=== PATIENT | female | born 1950 | race Two or more races ===

== ENCOUNTER 2025-02-25 12:43 | Inpatient (IN) | payer MEDICARE, MEDICAID, SELFPAY ==
[2025-02-25] VITALS (10 sets, daily range): BP systolic 140–157; BP diastolic 76–95; PULSE 55–97; RESP 16–100; TEMP 36.4–36.7; O2SAT 92–98; BMI 30.9; BMI 31.4
--- NOTE | 2025-02-25 | XR_ITS ---
Examinations: MRI Brain without intravenous contrast. MRA brain without intravenous contrast. MRA carotids without intravenous contrast 3-D vascular reconstructions Date and time of exam: February 27, 2025 1848 hours Comparison September 07, 2024 INDICATIONS: Stroke alert today, onset focal neurologic deficit left-sided body weakness altered mental status Technique: Multiple axial and sagittal images of the brain have been obtained MRA brain carotid images without contrast obtained, including 3-D postprocessing, vascular maximum intensity projection images Findings: [place] is not enlarged. The optic chiasm and infundibular stalk are not remarkable. Prepontine and interpeduncular cisterns are not enlarged. No localized enlargement of the medulla or girma. Fourth ventricle and cerebellar tonsils normal in position. Subacute hemorrhage is not seen. Fourth ventricle is midline. Mass in the cerebellopontine angle region is not evident. 7th and 8th nerve complexes exhibits symmetry. Globes are symmetrical with no retro-orbital mass. Increased white matter signal prominent Significant cerebral atrophy Diffusion-weighted images demonstrate no focus of restricted diffusion Mass-effect upon the ventricular system is not identified. MRA carotid images no significant carotid stenoses. MRA brain images no large vessel cerebral occlusions Impression: Negative for acute hemorrhage, mass effect or midline shift No acute infarct Very prominent chronic microvascular white matter change, chronic multi-infarct dementia pattern with significant cerebral atrophy No significant carotid stenoses No no large vessel cerebral arterial occlusions
--- NOTE | 2025-02-25 12:54 | XR_ITS ---
Examination: CTA carotids with intravenous contrast CTA brain, head with intravenous contrast. 2-D sagittal, coronal reconstructions. 3-D reconstructions. Exam date and time: February 25, 2025 at 1259 hours INDICATIONS: Stroke alert today onset focal neurologic deficit 40 minutes ago CTDI: vol (mGy) 23.01 DLP: (mGycm) 431 Technique: Multiple CTA axial brain, head carotid images post intravenous contrast injection 75 cc, Isovue-370. 2-D sagittal, coronal reconstructions. 3-D reconstructions, 3-D post processing including vascular maximum intensity projection images. Low dose protocols were performed. One or more of the following dose reduction techniques were used; automated exposure control, adjustment of the mA and/or KV according to patient size, use of iterative reconstruction technique. Findings: No significant common carotid carotid bifurcation or internal carotid artery stenoses Mildly dominant right vertebral artery in the neck with no mucosal stenoses No cerebral large vessel arterial occlusions or thrombus IMPRESSION: No significant neck arterial stenoses No cerebral large vessel arterial occlusions or thrombus
--- NOTE | 2025-02-25 12:54 | EKG_ITS ---
[facility] Test Date: 2025-02-25 Pat Name: JOY IBRAHIM Department: Room: - Gender: Female [employer]: : 1950 Requested By: Glenn Rowe Order Number: [id number] Reading MD: Glenn Rowe Measurements Intervals [place] Rate: 62 P: 68 [place]: 184 QRS: 9 QRSD: 97 T: 66 QT: 422 QTc: 430 Interpretive Statements SINUS RHYTHM WITH SINUS ARRHYTHMIA WARNING: DATA QUALITY MAY AFFECT INTERPRETATION Compared to ECG 09/06/2024 11:36:59 No significant changes /store/S0/[id number]/[id number].pdf
--- NOTE | 2025-02-25 12:54 | XR_ITS ---
Examination: CT brain head without contrast. 2-D sagittal coronal reconstructions Date and time of exam:February 25, 2025 1252 hours Comparison September 06, 2024 INDICATIONS: Stroke alert, onset altered mental status left-sided body weakness focal neurologic deficit today CTDI: vol (mGy):46.0 DLP: (mGycm):875 Technique: Multiple CT axial sections of the brain have been obtained, 5 mm slice thickness. Contrast has not been administered. 2-D sagittal, coronal reconstructions have been obtained Low dose protocols were performed. One or more of the following dose reduction techniques were used; automated exposure control, adjustment of the mA and/or KV according to patient size, use of iterative reconstruction technique. Findings: No significant ventricular enlargement. Intra-axial or extra-axial hemorrhage density is not seen. No mass effect or midline shift Basal cisterns are not remarkable. Fourth ventricle is midline. Cranial vault intact. Impression: Negative for acute hemorrhage, mass effect or midline shift
[2025-02-25 13:21] LABS: Basophils % (Auto) 1 % (0-2.5); Eosinophils # (Auto) 0.1 Thou/mm3 (0.0-0.5); Eosinophils % (Auto) 2 % (0-10); Hematocrit 34.7 % (36.0-46.0); Hemoglobin 11.3 g/dL (12.0-16.0); Immature Granulocytes % (Auto) 0 % (0-0); Immature Granulocytes Auto 0.03 Thou/mm3 (0.00-0.00); Lymphocytes # (Auto) 1.7 Thou/mm3 (1.0-4.8); Lymphocytes % (Auto) 21 % (10-50); Mean Corpuscular HGB Conc 32.6 g/dl (31.0-37.0); Mean Corpuscular Hemoglobin 26.7 pg (25.0-35.0); Mean Corpuscular Volume 82 fL (80-100); Monocytes # (Auto) 0.6 Thou/mm3 (0.0-0.8); Monocytes % (Auto) 7 % (0-12); Neutrophils # (Auto) 5.5 Thou/mm3 (1.8-7.7); Neutrophils % (Auto) 69 % (37-80); Nucleated Red Blood Cell % 0 /100 WBC (0); Platelet Count 332 Thou/mm3 (140-440); RDW Standard Deviation 48.4 fL (36.4-46.3); Red Blood Count 4.23 Miln/mm3 (4.00-5.20); White Blood Count 7.9 Thou/mm3 (3.6-11.0)
[2025-02-25 13:37] LABS: INR 1.1 (0.9-1.3); Partial Thromboplastin Time 27.6 Seconds (22.0-36.0); Prothrombin Time 11.9 Seconds (9.0-12.2)
--- NOTE | 2025-02-25 13:37 | PD.EDNEURO ---
Neuro Symptoms Deficit-RME/HPI General Chief Complaint: Neuro Symptoms/Deficit Stated Complaint: STROKE LIKE SYMPTOMS Time Seen by Provider: 02/25/25 12:54 Arrival date/time: 02/25/25 12:43 Limitations: no limitations RME / HPI RME / HPI Narrative: 74 year old female with history of CVA, TIA, hypertension, diabetes, h/o DVT, hyperlipidemia presents to the ED BIBA from home for evaluation of stroke like symptoms today. Per medics, family on scene reported patient appeared to have left sided weakness and slurred speech. Last known well at 12:20 hours today. Per medics, on scene the patient was a GCS of 13 and had a G-FAST of 2 with left sided weakness. However, reports since arriving to the ED her symptoms have resolved and activities volunteer strength is equal bilaterally. No other complaints reported. Prehospital BS 138. Prehospital vital signs: b/p 196/106, spo2 92% on RA and 98% on 4L, RR 16. Related Data Home Medications ?Medication ?Instructions ?Recorded ?Confirmed montelukast 10 mg tablet 10 mg PO QPM 02/20/18 02/27/25 (Singulair) Held on 02/27/25. Instructions: Doctor's Order diphenoxylate-atropine 2.5 1 tab PO QID PRN Diarrhea 08/27/23 02/26/25 mg-0.025 mg tablet famotidine 20 mg tablet 20 mg PO QDAY 08/27/23 02/26/25 folic acid 1 mg tablet 1 mg PO QDAY 08/27/23 02/26/25 hydroxyzine HCl 25 mg tablet 25 mg PO HS 08/27/23 02/26/25 memantine 5 mg tablet 5 mg PO BID 08/27/23 02/26/25 vibegron 75 mg tablet (Gemtesa) 75 mg PO QDAY 08/27/23 02/26/25 albuterol sulfate 90 mcg/actuation 2 inh inhalation Q4HR PRN sob 09/06/24 02/27/25 aerosol inhaler Held on 02/27/25. Instructions: Doctor's Order apixaban 5 mg tablet (Eliquis) 5 mg PO BID 09/06/24 02/26/25 finerenone 10 mg tablet (Kerendia) 10 mg PO QDAY 09/06/24 02/26/25 celecoxib 200 mg capsule (Celebrex) 200 mg PO BID 02/26/25 02/26/25 cholecalciferol (vitamin D3) 50 50 mcg PO QDAY 02/26/25 02/26/25 mcg (2,000 unit) tablet (D3 DOTS) patiromer calcium sorbitex 25.2 25.2 g PO BID 02/26/25 02/26/25 gram oral powder packet (Veltassa) Previous Rx's ?Medication ?Instructions ?Recorded aspirin 81 mg tablet,delayed 81 mg PO QDAY #30 tabs 09/08/24 release Held on 02/27/25. Instructions: Doctor's Order atorvastatin 20 mg tablet 20 mg PO QDAY 30 days #0 tabs 09/08/24 Allergies Allergy/AdvReac Type Severity Reaction Status Date / Time No Known Allergies Allergy Verified 05/24/23 14:01 Review of Systems Review of Systems Narrative Review of Systems: GEN: No fever, no chills, no weight loss EYES: No discharge, no visual changes, no pain HEENT: No ear pain, no congestion, no sore throat PULM: No shortness of breath, no cough, no congestion CV: No chest pain, no palpitations GI: No nausea, no vomiting, no diarrhea, no pain, no constipation : No frequency, no urgency, no dysuria MUSC/SKEL: No joint pain, no back pain SKIN: No rash NEURO: +left sided weakness and slurred speech per medics and family, no headache Past Medical History Past Medical History NEUROLOGIC: Positive Neurological Disorders and Cerebrovascular Accident CARDIAC: Positive Cardiac Disorders, Hypercholesterolemia, Deep Vein Thrombosis and Hypertension RESPIRATORY: Positive Chronic Obstructive Pulmonary Disease (COPD) and Bronchitis GASTROINTESTINAL: Positive Gastrointestinal Disorders and Gastroesophageal Reflux Disease MUSCULOSKELETAL: Positive Musculoskeletal Disorders and Arthritis ENDOCRINE: Positive Endocrine Disorders and Diabetes Mellitus Type 2 OTHER HISTORY: Positive Hospitalization, Falls and Blood Transfusions Social History SMOKING STATUS: Never smoker ED Exam General Limitations: Present no limitations General appearance: Present alert and in no apparent distress Head Head exam: Present atraumatic, normocephalic and normal inspection Eye Eye exam: Present normal appearance, PERRL and EOMI ENT ENT exam: Present normal exam, normal oropharynx and mucous membranes moist Neck Neck exam: Present normal inspection, full ROM and trachea midline Chest Chest inspection: Present normal inspection and symmetric chest wall rise Respiratory Respiratory exam: Present normal lung sounds bilaterally Cardiovascular Cardiovascular exam: Present regular rate, normal rhythm and normal heart sounds Abdominal Exam Abdominal exam: Present soft and normal bowel sounds Extremities Exam Extremities exam: Present normal inspection and full ROM Back Exam Back exam: Present normal inspection and full ROM Neurological Exam Neurological exam: Present alert, oriented X3 and CN II-XII intact Psychiatric Psychiatric exam: Present normal affect and normal mood Skin Skin exam: Present warm, dry, intact and normal color Course Course Course Narrative: 1244: Patient evaluated in ED ambulance bay Quality Measures Suspected type of Stroke: Acute Ischemic Tenecteplase given: Reason(s) TPA not given: Stroke severity too mild (non-disabling) not given stroke Orders Category Date Time Status Bedside Blood Glucose NOW Care 02/25/25 12:54 Completed COVID-19 Screening Questionnaire NOW Care 02/25/25 14:27 Completed Astrobiologist NOW Care 02/25/25 12:54 Completed Continuous Pulse Oximetry NOW Care 02/25/25 12:54 Completed Decision to Admit X1 Care 02/25/25 14:27 Completed EKG (ED ONLY) *Do not use* NOW Care 02/25/25 12:54 Completed In and Out Catheter NEEDED Care 02/25/25 12:54 Completed Insert IV NOW Care 02/25/25 12:54 Completed NIH Stroke Scale now Care 02/25/25 12:54 Completed NPO NOW Care 02/25/25 12:54 Completed Neuro Check Q15MIN Care 02/25/25 12:55 Completed Nurse Swallow Screen x1 Care 02/25/25 12:54 Completed Consult to Neurology / Tele-Neurology Routine Cons 02/25/25 12:[address] angio stroke protocol Stat Exams 02/25/25 12:[address] stroke protocol Stat Exams 02/25/25 12:54 Completed EKG (ED Only) Stat Exams 02/25/25 12:54 Draft Arterial Blood Gas Stat Lab 02/25/25 13:37 Completed CBC Stat Lab 02/25/25 13:10 Completed Comprehensive Metabolic Panel Stat Lab 02/25/25 13:10 Completed Magnesium Stat Lab 02/25/25 13:10 Completed Partial Thromboplastin Time Stat Lab 02/25/25 13:10 Completed Prothrombin Time with INR Stat Lab 02/25/25 13:10 Completed Troponin I Stat Lab 02/25/25 13:10 Completed Urinalysis Stat Lab 02/25/25 14:48 Completed Ondansetron Inj [Zofran Inj] Med 02/25/25 12:54 Discontinued 4 mg IV Q4HR PRN Sodium Chloride 0.9% 1000 ml [Ns] 1,000 ml Med 02/25/25 13:00 Discontinued IV 100 mls/hr Oxygen Delivery NOW RT 02/25/25 12:54 Completed Reevaluation(s) Reevaluation #1: I spoke with teleneurologist Dr. Castro and states patient is not a tpa candidate. Time: 13:54 Vital Signs Vital signs: Vital Signs Pulse Rate 62 02/25/25 13:00 Respiratory Rate 18 02/25/25 13:00 Neuro Symptoms / Deficit MDM Narrative MDM Narrative:: IKelsi, raul scribing for and in the presence of Dr. Wilkinson. Patient data External records reviewed:: [facility] previous records (I reviewed admission from 09/06/2024 through 09/09/2024 for hypomagnesemia ) and EMS form Clinical information provided by:: patient and EMS Social determinants that could affect healthcare access:: none Patient has the following chronic illnesses:: CVA, TIA, hypertension, diabetes, h/o DVT, hyperlipidemia How is presenting disease/condition affected by chronic disease/condition?: exacerbated by Evaluation data The following diagnostics were reviewed and interpreted by me:: lab results, radiology exam(s) and EKG tracing(s) (Sinus rhythm,r ate 62, QT/QTC 422ms/427ms, no STEMI ) Lab and/or radiology exams considered but not ordered:: None Interpretation Summary: Ordering Physician: Glenn Wilkinson MD Date of Service: 02/25/25 Procedure(s): CT stroke protocol Accession Number(s): [id number] cc: Glenn Wilkinson MD; Esequiel Barros MD~ Examination: CT brain head without contrast. 2-D sagittal coronal reconstructions Date and time of exam:February 25, 2025 1252 hours Comparison September 06, 2024 INDICATIONS: Stroke alert, onset altered mental status left-sided body weakness focal neurologic deficit today CTDI: vol (mGy):46.0 DLP: (mGycm):875 Technique: Multiple CT axial sections of the brain have been obtained, 5 mm slice thickness. Contrast has not been administered. 2-D sagittal, coronal reconstructions have been obtained Low dose protocols were performed. One or more of the following dose reduction techniques were used; automated exposure control, adjustment of the mA and/or KV according to patient size, use of iterative reconstruction technique. Findings: No significant ventricular enlargement. Intra-axial or extra-axial hemorrhage density is not seen. No mass effect or midline shift Basal cisterns are not remarkable. Fourth ventricle is midline. Cranial vault intact. Impression: Negative for acute hemorrhage, mass effect or midline shift Dictated By: Esequiel Barros MD Signed By: <Electronically signed by Esequiel Barros MD in OV> 02/25/25 1302 Ordering Physician: Glenn Wilkinson MD Date of Service: 02/25/25 Procedure(s): CT angio stroke protocol Accession Number(s): [id number] cc: Glenn Wilkinson MD; Esequiel Barros MD~ Examination: CTA carotids with intravenous contrast CTA brain, head with intravenous contrast. 2-D sagittal, coronal reconstructions. 3-D reconstructions. Exam date and time: February 25, 2025 at 1259 hours INDICATIONS: Stroke alert today onset focal neurologic deficit 40 minutes ago CTDI: vol (mGy) 23.01 DLP: (mGycm) 431 Technique: Multiple CTA axial brain, head carotid images post intravenous contrast injection 75 cc, Isovue-370. 2-D sagittal, coronal reconstructions. 3-D reconstructions, 3-D post processing including vascular maximum intensity projection images. Low dose protocols were performed. One or more of the following dose reduction techniques were used; automated exposure control, adjustment of the mA and/or KV according to patient size, use of iterative reconstruction technique. Findings: No significant common carotid carotid bifurcation or internal carotid artery stenoses Mildly dominant right vertebral artery in the neck with no mucosal stenoses No cerebral large vessel arterial occlusions or thrombus IMPRESSION: No significant neck arterial stenoses No cerebral large vessel arterial occlusions or thrombus Dictated By: Esequiel Barros MD Signed By: <Electronically signed by Esequiel Barros MD in OV> 02/25/25 7367 Medications / Prescriptions Medications or Prescriptions considered but not ordered:: None Medication administrations:: Medication Administration History Discontinued Medications Acetaminophen (Acetaminophen 325 Mg Tablet) 650 mg PO Q6H PRN PRN Reason: Pain 1-3 or Fever >100.3 Stop: 03/27/25 15:09 Hydrocodone Bitart/Acetaminophen (Hydrocodone/Apap 5/325 Tablet) 1 tab PO Q4HR PRN PRN Reason: PAIN SCALE 4-6 (Moderate Stop: 03/02/25 15:09 Albuterol (Albuterol Rt 2.5 Mg/0.5 Ml Nebu) 2.5 mg INH Q4HRRT PRN PRN Reason: shortness of breath Stop: 03/27/25 18:59 Apixaban (Apixaban 2.5 Mg Tablet) 5 mg PO BID MATT Stop: 03/18/25 20:59 Last Admin: 02/27/25 08:25 Dose: 5 mg Documented By: Admin: 02/26/25 20:09 Dose: 5 mg Documented By: Admin: 02/26/25 08:07 Dose: 5 mg Documented By: Admin: 02/25/25 20:46 Dose: 5 mg Documented By: EAMON Aspirin (Aspirin Ec 81 Mg Tabec) 81 mg PO X1 ONE Stop: 02/25/25 15:23 Last Admin: 02/25/25 16:58 Dose: 81 mg Documented By: ARSENIO Aspirin (Aspirin Ec 81 Mg Tabec) 81 mg PO QDAY MATT Stop: 03/28/25 08:59 Last Admin: 02/27/25 08:25 Dose: 81 mg Documented By: Admin: 02/26/25 08:07 Dose: 81 mg Documented By: JACQUE Atorvastatin Calcium (Atorvastatin Calcium 20 Mg Tablet) 20 mg PO HS MATT Stop: 03/27/25 20:59 Last Admin: 02/26/25 20:09 Dose: 20 mg Documented By: Admin: 02/25/25 20:44 Dose: 20 mg Documented By: EAMON Benzonatate (Benzonatate 100 Mg Capsule) 100 mg PO Q8HR PRN; Protocol PRN Reason: COUGH Stop: 03/28/25 08:55 Clopidogrel Bisulfate (Clopidogrel Bisulfate 75 Mg Tablet) 300 mg PO X1 ONE Stop: 02/25/25 15:23 Last Admin: 02/25/25 17:00 Dose: Not Given Documented By: VG Non-Admin Reason: Discontinued Dextrose (Dextrose 50%-Water Inj 50 Ml Syringe) 25 ml IV Q15MIN PRN PRN Reason: BG 50-70 responsive npo pt Stop: 03/27/25 15:25 Dextrose (Dextrose 50%-Water Inj 50 Ml Syringe) 50 ml IV Q15MIN PRN PRN Reason: BG <50 OR BG <70 & pt unresponsive Stop: 03/27/25 15:25 Docusate Sodium (Docusate Sod 100 Mg Capsule) 100 mg PO QDAY PRN; Protocol PRN Reason: CONSTIPATION Stop: 03/27/25 15:09 Glucagon (Glucagon Inj 1 Mg Vial) 1 mg IM Q15MIN PRN PRN Reason: BG <70, and no IV access Sodium Chloride (Ns) 1,000 mls @ 100 mls/hr IV .Q10H MATT Stop: 03/27/25 12:59 Last Admin: 02/27/25 06:23 Dose: 100 mls/hr Documented By: Infusion: 02/27/25 06:10 Dose: Infused Documented By: Admin: 02/26/25 20:10 Dose: 100 mls/hr Documented By: Infusion: 02/26/25 15:24 Dose: Infused Documented By: Admin: 02/26/25 09:17 Dose: Not Given Documented By: JACQUE Non-Admin Reason: new bag running already Admin: 02/26/25 05:24 Dose: 100 mls/hr Documented By: Infusion: 02/26/25 00:19 Dose: Infused Documented By: Admin: 02/25/25 14:19 Dose: 100 mls/hr Documented By: ARSENIO Magnesium Sulfate (Magnesium Sulfate Ivpb) 2 gm in 50 mls @ 25 mls/hr IV X1 ONE Stop: 02/27/25 10:15 Last Admin: 02/27/25 08:25 Dose: 25 mls/hr Documented By: TYSON Insulin Human Lispro (Insulin Lispro (Admelog) 1 Unit/0.01 Ml Unit) 0 unit SC AC MATT; Protocol Stop: 03/27/25 16:59 Last Admin: 02/26/25 07:06 Dose: Not Given Documented By: JACQUE Non-Admin Reason: NPO Admin: 02/25/25 18:00 Dose: Not Given Documented By: ARSENIO Non-Admin Reason: Per Protocol Insulin Human Lispro (Insulin Lispro (Admelog) 1 Unit/0.01 Ml Unit) 0 unit SC Q6HR MATT; Protocol Stop: 03/28/25 11:59 Insulin Human Lispro (Insulin Lispro (Admelog) 1 Unit/0.01 Ml Unit) 0 unit SC AC MATT; Protocol Stop: 03/28/25 11:29 Last Admin: 02/27/25 12:02 Dose: Not Given Documented By: TYSON Non-Admin Reason: Per Protocol Admin: 02/27/25 08:24 Dose: Not Given Documented By: TYSON Non-Admin Reason: Per Protocol Admin: 02/26/25 18:17 Dose: Not Given Documented By: JACQUE Non-Admin Reason: Per Protocol Admin: 02/26/25 11:33 Dose: Not Given Documented By: JACQUE Non-Admin Reason: Per Protocol Losartan Potassium (Losartan Potassium 25 Mg Tablet) 25 mg PO QDAY [facility] Stop: 03/28/25 08:59 Last Admin: 02/27/25 08:24 Dose: 25 mg Documented By: Admin: 02/26/25 09:16 Dose: 25 mg Documented By: JACQUE Memantine (Memantine Hcl 5 Mg Tablet) 5 mg PO BID [facility] Stop: 03/27/25 20:59 Last Admin: 02/27/25 08:25 Dose: 5 mg Documented By: Admin: 02/26/25 20:09 Dose: 5 mg Documented By: Admin: 02/26/25 08:07 Dose: 5 mg Documented By: Admin: 02/25/25 20:44 Dose: 5 mg Documented By: EAMON Morphine Sulfate (Morphine Sulf Inj 10 Mg/Ml Vial) 2 mg IVP Q4HR PRN PRN Reason: PAIN SCALE 7-10 (Severe Stop: 03/02/25 15:09 Ondansetron HCl (Ondansetron Inj 2 Mg/Ml Inj 2 Ml) 4 mg IV Q4HR PRN PRN Reason: NAUSEA OR VOMITING Stop: 03/27/25 12:53 Pantoprazole Sodium (Pantoprazole 40 Mg Tablet) 40 mg PO QDAY [facility] Stop: 03/27/25 15:14 Last Admin: 02/27/25 08:25 Dose: 40 mg Documented By: Admin: 02/26/25 08:07 Dose: 40 mg Documented By: Admin: 02/25/25 16:58 Dose: 40 mg Documented By: VG Sodium Chloride (Sodium Chloride Rt Idalmis 0.9% 3 Ml Nebu) 3 ml INH PRN PRN PRN Reason: SOLN Stop: 03/27/25 15:28 See above Consultations Consultation(s) initiated? (list below): Yes Consultation #1 (Physician, Specialty, Details): I spoke with hospitalist Dr. Marte. Discussed patients PMHx, HPI, ED course, exam findings, labs, and radiology results. The hospitalist agree to accept the patient for admission. Time: 14:35 Diagnosis Neuro Differential Diagnosis: subarachnoid hemorrhage, cerebrovascular accident and transient cerebral ischemia Most likely diagnosis given after review of the tests above:: TIA H/O CVA Admission Indicated Admission indicated?: indicated Admission Request Was there a request for admission?: Yes Admission Attestation Admission request attestation: Discussed case with [] from Hospitalist service regarding admission. Discussed patients ED course, exam findings, labs, and radiology results. The Hospitalist [agrees,declines] to accept the patient for admission. Disposition Plan Disposition Plan: Admit Critical Care Time Critical Care Time Critical Care Time: Yes Total Critical Care Time (min.): 30 Attestation: The high probability of sudden, clinically significant deterioration in the patient's condition required the highest level of my preparedness to intervene urgently. The services I provided to this patient were to treat and/or prevent clinically significant deterioration. Services included the following: chart data review, reviewing nursing notes and/or old charts, documentation time, pension consultant collaboration regarding findings and treatment options, medication orders and management, direct patient care, vital sign assessments and ordering, interpreting and reviewing diagnostic studies and lab tests. Aggregate critical care time includes only time during which I was engaged in work directly related to the patient's care, as described above, whether at bedside or elsewhere in the Emergency Department. It did not include time spent performing other reported procedures or the services of residents, students, nurses or physician assistants. Discharge Plan Plan Patient Disposition: Admit Acute Care w/in Hospital Problem List Clinical Impression: TIA (transient ischemic attack), H/O: CVA (cerebrovascular accident)
[2025-02-25 13:40] LABS: Base Excess 2 (-3-3); HCO3 27 mEq/L (20-26); Inspired Oxygen, FIO2 21 %; O2 Saturation 96 % (91-98); PCO2 45 mmHg (32.0-48.0); PO2 79 mmHg (83-108); pH, Arterial 7.39 (7.35-7.45)
[2025-02-25 13:41] LABS: Allen Test Not Performed; Puncture Site Site Not Noted
[2025-02-25 13:54] LABS: Alanine Aminotransferase 9 U/L (10-49); Albumin/Globulin Ratio 1.3 (1.2-2.2); Alkaline Phosphatase 95 U/L (46-116); Anion Gap 9 (7-16); Aspartate Amino Transferase 18 U/L (0-34); BUN/Creatinine Ratio 9 Ratio (12-20); Bilirubin,Total 0.6 mg/dL (0.3-1.2); Blood Urea Nitrogen 11 mg/dL (9-23); Calcium 9.3 mg/dL (8.3-10.6); Calcium (Corrected) 9.3 mg/dL (8.5-10.1); Carbon Dioxide 26.4 mMol/L (20.0-31.0); Chloride 104 mMol/L (98-107); Creatinine (Component) 1.2 mg/dL (0.6-1.3); Estimated Creatinine Clearance 36.4 mL/min (>60); Glucose 124 mg/dL (74-106); Magnesium 1.7 mg/dL (1.6-2.6); Osmolality,Calculated 277 (275-295); Sodium 139 mMol/L (136-145); Troponin I < 0.002 ng/mL (0.0-0.045); eGFR 48 See Note
--- NOTE | 2025-02-25 13:55 | PD.TNEURO ---
Tele Neuro Consultation Consultation Date 02/25/25 Most Recent Vital Signs Last Vital Signs Pulse 97 02/25/25 13:37 Resp 18 02/25/25 13:37 Laboratory-Coagulation Panel PT 11.9 Seconds (9.0-12.2) 02/25/25 13:10 INR 1.1 (0.9-1.3) 02/25/25 13:10 APTT 27.6 Seconds (22.0-36.0) 02/25/25 13:10 Consultation Narrative [facility] Tele[facility]urology Consult Services Patient Name:???Valeria Haley Date of :???1950 Identification Number:??? Date of Service:???02/25/2025 12:42:16 Diagnosis:?G45.9 - Transient cerebral ischemic attack, unspecified Impression: ?74yo woman w/PMH of vascular dementia, pneumonia p/w left sided weakness, slurred speech on 02/25/25. EMS reports they were called from clinic when she developed left sided weakness and slurred speech at 12:20. Her symptoms improved in the ED. NIHSS [address] Head has no acute findings per radiology. Pt is not a candidate for thrombolytics due to lack of disabling deficits at this time. CTA Head/Neck shows no large vessel occlusion. Presentation is concerning for TIA or acute small vessel ischemic stroke based on history and exam, MRI Brain advised. Plan listed below was recommended to the ED physician by phone. Our recommendations are outlined below. Recommendations: ? Stroke/Telemetry Floor ? Neuro Checks ? Bedside Swallow Eval ? DVT Prophylaxis ? IV Fluids, Normal Saline ? Head of Bed 30 Degrees ? Euglycemia and Avoid Hyperthermia (PRN Acetaminophen) ? Bolus with Clopidogrel 300 mg bolus x1 and initiate dual antiplatelet therapy with Aspirin 81 mg daily and Clopidogrel 75 mg daily ? Antihypertensives PRN if Blood pressure is greater than 220/120 or there is a concern for End organ damage/contraindications for permissive HTN. If blood pressure is greater than 220/120 give labetalol PO or IV or Vasotec IV with a goal of 15% reduction in BP during the first 24 hours. ?Routine MRI Brain without contrast to assess for stroke ?TTE (if not recently done) ?Lipid Profile, A1C ?PT/OT, Speech/Swallow evaluation Sign Out: ? Discussed with Emergency Department Provider Advanced Imaging: CTA Head and Neck Completed. LVO:No Patient in not a candidate for SHREYAS Metrics: Last Known Well: 02/25/2025 12:20:00 Dispatch Time: 02/25/2025 12:42:16 Arrival Time: 02/25/2025 12:43:00 Initial Response Time: 02/25/2025 12:51:26Symptoms: left sided weakness, slurred speech. Initial patient interaction: 02/25/2025 13:40:38 NIHSS Assessment Completed: 02/25/2025 13:45:28Patient is not a candidate for Thrombolytic. Thrombolytic Medical Decision: 02/25/2025 13:45:29Patient was not deemed candidate for Thrombolytic because of following reasons: Resolved symptoms . Stroke severity too mild (non-disabling) . CT head showed no acute hemorrhage or acute core infarct. Primary Provider Notified of Diagnostic Impression and Management Plan on: 02/25/2025 13:54:59 History of Present Illness:Patient is a 74 year old Female. Patient was brought by EMS for symptoms of left sided weakness, slurred speech. 74yo woman w/PMH of vascular dementia, pneumonia p/w left sided weakness, slurred speech on 02/25/25. EMS reports they were called from clinic when she developed left sided weakness and slurred speech at 12:20. Her symptoms improved in the ED. Past Medical History: Other PMH:? see hpi Medications: No Anticoagulant use? No Antiplatelet use Reviewed EMR for current medications Allergies:? Reviewed Social History: Drug Use: No Family History: There is no family history of premature cerebrovascular disease pertinent to this consultation ROS : 14 Points Review of Systems was performed and was negative except mentioned in HPI. Past Surgical History: There Is No Surgical History Contributory To Today?s Visit Examination: BP(/),?Pulse(80), 1A: Level of Consciousness - Alert; keenly responsive?+ 0 1B: Ask Month and Age - 1 Question Right?+ 1 1C: Blink Eyes & Squeeze Hands - Performs Both Tasks?+ 0 2: Test Horizontal Extraocular Movements - Normal?+ 0 3: Test Visual Rene - No Visual Loss?+ 0 4: Test Facial Palsy (Use Grimace if Obtunded) - Normal symmetry?+ 0 5A: Test Left Arm Motor Drift - No Drift for 10 Seconds?+ 0 5B: Test Right Arm Motor Drift - No Drift for 10 Seconds?+ 0 6A: Test Left Leg Motor Drift - No Drift for 5 Seconds?+ 0 6B: Test Right Leg Motor Drift - No Drift for 5 Seconds?+ 0 7: Test Limb Ataxia (FNF/Heel-Waters) - No Ataxia?+ 0 8: Test Sensation - Normal; No sensory loss?+ 0 9: Test Language/Aphasia - Normal; No aphasia?+ 0 10: Test Dysarthria - Normal?+ 0 11: Test Extinction/Inattention - No abnormality?+ 0 NIHSS Score:?1 Pre-Morbid Modified William Scale:0 Points = No symptoms at all Spoke with :?ED MD This consult was conducted in real time using interactive audio and video technology. Patient was informed of the technology being used for this visit and agreed to proceed. Patient located in hospital and provider located at home/office setting. Patient is being evaluated for possible acute neurologic impairment and high probability of imminent or life-threatening deterioration. I spent total of 35 minutes providing care to this patient, including time for face to face visit via telemedicine, review of medical records, imaging studies and discussion of findings with providers, the patient and/or family. Dr Mejia Castro [facility] For Inpatient follow-up with [facility] physician please call [facility] at . As we are not an outpatient service for any post hospital discharge needs please contact the hospital for assistance. If you have any questions for the [facility] physicians or need to reconsult for clinical or diagnostic changes please contact us via [facility] at .
[2025-02-25] MEDS: SODIUM CHLORIDE 0.9% 1000 ML 1,000 ML 100 ML IV (14:19)
[2025-02-25 15:09] LABS: Collection Type, Urine Clean Catch; Squamous Epithelial Cell,Urine 0 /hpf (0-5)
--- NOTE | 2025-02-25 15:10 | ECHO_ITS ---
Transthoracic Echo Report Ht (in): 60 Wt (lb): 160 Exam Location: Portable Status: Emergency Lead Generation Representative: GOPAL Mcbride^^^^ Indications: Procedure Performed: BP: 160 / 100 HR: 90 Technical Quality: Fair MEASUREMENTS (Male / Female) Normal Values 2D ECHO LV Diastolic Diameter PLAX 3.3 cm 4.2 - 5.9 / 3.9 - 5.3 cm LV Systolic Diameter PLAX 2.3 cm IVS Diastolic Thickness 0.8 cm 0.6 - 1.0 / 0.6 - 0.9 cm LVPW Diastolic Thickness 1.0 cm 0.6 - 1.0 / 0.6 - 0.9 cm LV Relative Wall Thickness 0.5 LVOT Diameter 1.7 cm Aortic Root Diameter 2.8 cm LA Systolic Diameter LX 2.6 cm 3.0 - 4.0 / 2.7 - 3.8 cm LA Volume Index 29.7 cm?/m? 16 - 28 cm?/m? Ascending Aorta Diameter 3.3 cm DOPPLER AV Peak Velocity 166.0 cm/s AV Peak Gradient 11.0 mmHg AV Mean Gradient 5.5 mmHg AV Velocity Time Integral 39.0 cm AI Peak Velocity 216.0 cm/s AI Peak Gradient 18.7 mmHg AI Pressure Half Time 613.5 ms LVOT Peak Velocity 93.1 cm/s LVOT Peak Gradient 3.5 mmHg LVOT Velocity Time Integral 26.3 cm LVOT Cardiac Index 3014.0 cm?/min?m? AV Area Cont Eq vti 1.5 cm? AV Area Cont Eq pk 1.3 cm? MV Area PHT 2.6 cm? Mitral E Point Velocity 64.2 cm/s Mitral A Point Velocity 100.0 cm/s Mitral E to A Ratio 0.6 LV E' Lateral Velocity 8.7 cm/s Mitral E to LV E' Lateral Ratio 7.4 LV E' Septal Velocity 8.4 cm/s Mitral E to LV E' Septal Ratio 7.7 TR Peak Velocity 216.5 cm/s TR Peak Gradient 18.7 mmHg PV Peak Velocity 99.0 cm/s PV Peak Gradient 3.9 mmHg RVOT Peak Velocity 60.6 cm/s FINDINGS Left Ventricle Normal left ventricular size, wall thickness, systolic function with no obvious regional wall motion abnormalities.there is grade I diastolic dysfunction of the left ventricle (impaired relaxation pattern). The left ventricular ejection fraction is normal, estimated at 55-60%. Right Ventricle The right ventricle is normal in size and systolic function. The estimated right ventricular systolic pressure, 22 mmHg. Left Atrium The left atrium is normal by two-dimensional, color flow and Doppler imaging with no structural abnormalities, no thrombus formation present. Right Atrium The right atrium is normal by two-dimensional imaging, color flow and Doppler imaging with no structural abnormalities, no thrombus formation present. Atrial Septum The interatrial septum is normal to color flow Doppler and agitated saline imaging. Aorta The aorta is normal by two-dimensional, color flow and Doppler interrogation. Mitral Valve Mild mitral regurgitation. Mild mitral annular calcification. Aortic Valve Aortic valve sclerosis. Trace to mild aortic valve regurgitation. Tricuspid Valve There is mild tricuspid valve regurgitation. Pulmonic Valve Trivial pulmonic valve regurgitation. Vessels The pulmonary artery appears normal. The inferior vena cava pulmonary and hepatic veins appear normal. Pericardium The pericardium is normal by two-dimensional imaging. There is no significant pericardial effusion. CONCLUSIONS Indication: Stroke Bubble study negative without any evidence of any PFO or ASD. Consider ZEV if high clinical risk of suspicion. Normal LV function and size with an EF of 55 to 60%. Stage I diastolic dysfunction. Mild LVH. Normal RV size and function with normal RVSP. Mild TR. Mild LA dilatation. Mild MR and mild MAC. Mild to moderate aortic valve sclerosis without stenosis. Marlon Paz (Electronically Signed) Final Date: 25 February 2025 18:57
[2025-02-25 15:27] LABS: Bilirubin,Urine Negative (Negative); Blood,Urine Negative (Negative); Clarity,Urine Clear (Clear/Hazy); Color,Urine Colorless (Lt Yel-Yel); Glucose, Urine 4+ (Negative); Ketones,Urine Negative (Negative); Leukocyte Esterase,Urine Positive (Negative); Nitrite,Urine Negative (Negative); PH,Urine 6.5 (5.0-7.0); Protein,Urine Negative (Neg - Trace); RBC,Urine 1 /hpf (0-3); Urobilinogen,Urine Negative mg/dL (0.0-1.0); WBC,Urine 18 /hpf (0-5)
--- NOTE | 2025-02-25 15:33 | ESHP_ITS ---
<Statement entered by Gabrielle Lopez MD - 02/25/25 16:05> 74-year-old woman with past medical history notable for vascular dementia, history of previous CVA with residual slurred speech, history of multiple TIA as well as DVT on Eliquis, presented to the ED for evaluation of strokelike symptoms. Sister was at bedside who was given the history. Apparently patient had episode of blank staring, and left-sided weakness today afternoon and slumped over. EMS was called. Upon presentation NIH score was 1. Stroke protocol was called in ED. Patient was not a candidate for thrombolytic therapy due to multiple comorbidities. CTA head/neck was negative for large vessel occlusion. CT was ordered which was negative for mass, hemorrhage or midline shift. Teleneuro was consulted and recommended to admit the patient for stroke protocol as well as an MRI. The patient will be started on aspirin and atorvastatin, continue Eliquis. Will obtain MRI, as well as EEG to rule out any seizure activities. Follow-up with echo, cardiology also is on board, will follow-up with neurology recommendations. I personally saw and examined the patient and discussed the assessment and plan with the entire medicine team, including my attending Dr.Tingle Gabrielle Lopez M.D. PGY-2 Disclaimer: Despite multiple revisions, due to the dictation software being used, the document bellow may not be free of grammatical errors including phonetic/typographic errors. However, this does not deter from our commitment to providing health care in the patient's best interest in mind. Documentation for date of: 02/25/25 HPI History of Present Illness History of present illness: CC: left upper extremity weakness Patient is a 74 year old female has a past medical history of CVA (2019), dementia, hypertension, diabetes mellitus type 2 [id number], hyperlipidemia, history of DVTs on Eliquis who presented to the emergency room via with a chief complaint of left upper extremity weakness and confusion. Patient's sister at bedside stated symptoms began at approximately 11 AM this morning while in route to camera engineer, Dr. Paz, appointment. Patient's sister stated patient slumpped over and had a blank stare. Paitent had increased confusion from baseline and was not responsive to questions. Patient deneid seizure like activity, denied chest pain and denied SOB. Patinet denied Vertigo. Patient denied increase urinary frequency, incontinence, or pain with urination. Patient denied CAD history and denied history of atrial fibrillaiton or flutter. Moe's sister was unsure why referral was made for dr. Paz but has a known history of bradycardia. ER Course: Vitals on admisison, BP 154/76, HR 62, RR 18,T 98.1 and saturating well on room air. EKG noted for sinus rhythm. WBC 7.9 (within normal limits), Hgb 11.3, Hct 34.7. Na 139, K 4.0, BUN 11, Cr 1.2, GFR 48 Glucose 123 A1c 5.9 Troponin <0.002 UA: Pending CT Head 02/25/2025: Negative Tele Neuro consulted: NO tPA, Rule out stroke, NIHSS 4, Permissive HTN Admitted on 02/25/2025 for CVA work up PMH: CVA 2019-->Dementia DM type 2, non insulin dependent HTN HLD GERD history of DVTs Bradycardia per sister Past Surgical History: cholecystectomy (?) Home Medication: Per chart Review, Patient's sister was unsure of list Metformin-->hold in hospital Losartan 50 mg--->HOLD for permissive HTN <220/120 Memantine (dementia-->Vascular Dementia) Albuterol PRN Aspirin 81 mg QDay Eliquis 5 mg BID Famotidine 20 mg PO QDay Hydroxyzine 25 mg HS Kerendia ? (CKD) Social History: Never smoker Never use of illicit Drugs no alcohol use Lives with sister Allergies: None Code Status: Full Code Review of Systems Review of Systems Narrative Review of Systems: General appearance: NO weight change, NO fatigue, NO weakness, NO fever, NO chills, NO night sweats, No cough Skin: NO rash, NO itching, NO sores, NO moles HEENT: NO Trauma, NO nausea, NO vomiting, NO visual changes, NO blurry vision, NO double vision, NO tinnitus, NO vertigo, NO ear discharge, NO rhinorrhea, NO stuffiness, NO sneezing, NO allergy, NO epistaxis. NO Hoarseness, NO sore throat, NO swollen neck. Cardiac: NO Palpitations, NO dyspnea on exertion, NO orthopnea, NO paroxysmal nocturnal dyspnea, NO edema Respiratory: NO Shortness of Breath, NO Wheezing, NO Cough, NO Sputum, NO hemoptysis GI:NO appetite, NO nausea, NO vomiting, NO dysphagia, NO changes in bowel frequency, NO stool color, NO diarrhea, NO constipation, NO hemetemesis, NO hemorrhoids, NO melena, NO hematechezia, NO abdominal pain, NO jaundice Renal: NO frequency, NO hesitancy, NO urgency, NO hematuria, NO nocturia, NO incontinence MSK: NO muscle weakness, NO gout, NO arthritis, NO muscle stiffness Neuro: NO headaches, NO tremors, YES weakness, NO paralysis, NO seizures, NO loss of consciousness, NO numbness. Hem: NO anemia, NO easy bruising/bleeding, NO petechiae, NO purpura Endo: NO heat/cold intolerance, NO excessive sweating, NO polyuria, NO polydipsia, NO polyphagia, NO thyroid problems, YES diabetes Pysch: NO mood, NO anxiety, NO depression Exam Vital Signs Temp Pulse Resp BP Pulse Ox O2 Del Method 98.1 F 70 18 156/76 H 97 Room Air 02/25/25 14:02/25/25 14:02/25/25 14:02/25/25 14:03 02/25/25 14:02/25/25 14:03 Narrative Exam General Appearance: Alert & Oriented X2, well-nourished female who is lying in bed in no acute distress HEENT: Skull symmetrical and atraumatic. Conjunctivae pin and moist. Pupils equal, round, reactive to light and accommodation (PERRL). External ear without lesion or discharge. Straight, nares patient, mucosa pink, no discharge. No thyroid nodule appreciated. No cervical lymphadenopathy. Cardio: Normal Rate and Rhythm with S1 and S2 heart sounds. No murmurs or extra heart sounds auscultated. No bruits on carotid auscultation. No peripheral edema or cyanosis. Lungs: Symmetric with good expansion. Chest and back non-tender. Breath sounds vesicular without crackles, wheezing or rhonchi Abdomen: Non-tender, Non-distended, Normal Reactive Bowel Sounds, NON tender supra-pubic region Neuro: YES Alert, YES cooperative, YES oriented to person, YES place, and NO time. Speech clear. CN grossly intact. No facial droop noted, nasal folds normal, Upper motor strength 5/5 and Lower motor strength 5/5. Sensation intact. Results: Labs 02/25/25 13:10 02/25/25 13:10 Labs: Short CBC 02/25/25 Range/Units 13:10 WBC 7.9 (3.6-11.0) Thou/mm3 Hgb 11.3 L (12.0-16.0) g/dL Hct 34.7 L (36.0-46.0) % Plt Count 332 (140-440) Thou/mm3 BMP 02/25/25 13:10 Sodium 139 Potassium 4.0 Chloride 104 Carbon Dioxide 26.4 BUN 11 Creatinine 1.2 Glucose 124 H Calcium 9.3 Cardiac Enzymes 02/25/25 Range/Units 13:10 Troponin I < 0.002 (0.0-0.045) ng/mL Liver Function 02/25/25 Range/Units 13:10 Total Bilirubin 0.6 (0.3-1.2) mg/dL AST 18 (0-34) U/L ALT 9 L (10-49) U/L Alkaline Phosphatase 95 (46-116) U/L Albumin 4.0 (3.4-4.8) gm/dL ABG Interpretation ABG results: 02/25/25 13:37 ABG pH 7.39 ABG pCO2 45 ABG pO2 79 L ABG HCO3 27 H ABG O2 Saturation 96 ABG Base Excess 2 Quality Measures Quality Measures stroke Suspected type of Stroke: TIA Tenecteplase given: Reason(s) Tenecteplase not given: Stroke severity too mild (non-disabling) not given Rehab services: PT evaluation ordered and Speech Language Pathology eval ordered VTE Prophylaxis: pharmaceutical Antithrombotic by day 2:: ordered Statin ordered: >75 y/o moderate or high intensity dose Anticoagulation ordered for A-fib or flutter (current or hx): not indicated Advance care planning discussed with:: patient and sibling Medications Home Medications and Allergies Home Medications ?Medication ?Instructions ?Recorded ?Confirmed ?Type montelukast 10 mg tablet 10 mg PO QPM 02/20/18 History (Singulair) metformin 500 mg tablet,extended 500 mg PO QPM 9 09/06/24 History release 24hr (osmotic) diphenoxylate-atropine 2.5 1 tab PO QDAY PRN Diarrhea 08/27/23 09/06/24 History mg-0.025 mg tablet ergocalciferol (vitamin D2) 1,250 50,000 unit PO QWEEK 08/27/23 09/06/24 History mcg (50,000 unit) capsule famotidine 20 mg tablet 20 mg PO QDAY 08/27/2309/06 History folic acid 1 mg tablet 1 mg PO QDAY 08/27/23 History hydroxyzine HCl 25 mg tablet 25 mg PO HS 08/27/2308/25 History losartan 50 mg tablet 50 mg PO QDAY 08/27/2309/06 History memantine 5 mg tablet 5 mg PO BID 08/27/23 4 History vibegron 75 mg tablet (Gemtesa) 75 mg PO QDAY 08/27/23 09/06/24 History albuterol sulfate 90 mcg/actuation 2 inh inhalation Q4 HR PRN sob 09/06/24 09/06/24 History aerosol inhaler apixaban 5 mg tablet (Eliquis) 5 mg PO BID 09/06/24 History finerenone 10 mg tablet (Kerendia) 10 mg PO QDAY 09/0609/06/24 History Allergies Allergy/AdvReac Type Severity Reaction Status Date / Time No Known Allergies Allergy Verified 05/24/23 14:01 Visit Medications Acetaminophen (Acetaminophen 325 Mg Tablet) 650 mg PO Q6H PRN PRN Reason: Pain 1-3 or Fever >100.3 Stop: 03/27/25 15:09 Hydrocodone Bitart/Acetaminophen (Hydrocodone/Apap 5/325 Tablet) 1 tab PO Q4HR PRN PRN Reason: PAIN SCALE 4-6 (Moderate Stop: 03/02/25 15:09 Albuterol (Albuterol Rt 2.5 Mg/0.5 Ml Nebu) 2.5 mg INH Q4HRRT PRN PRN Reason: shortness of breath Stop: 03/27/25 18:59 Apixaban (Apixaban 2.5 Mg Tablet) 5 mg PO BID MATT Stop: 03/18/25 20:59 Atorvastatin Calcium (Atorvastatin Calcium 20 Mg Tablet) 20 mg PO HS MATT Stop: 03/27/25 20:59 Dextrose (Dextrose 50%-Water Inj 50 Ml Syringe) 25 ml IV Q15MIN PRN PRN Reason: BG 50-70 responsive npo pt Stop: 03/27/25 15:25 Dextrose (Dextrose 50%-Water Inj 50 Ml Syringe) 50 ml IV Q15MIN PRN PRN Reason: BG <50 OR BG <70 & pt unresponsive Stop: 03/27/25 15:25 Docusate Sodium (Docusate Sod 100 Mg Capsule) 100 mg PO QDAY PRN; Protocol PRN Reason: CONSTIPATION Stop: 03/27/25 15:09 Glucagon (Glucagon Inj 1 Mg Vial) 1 mg IM Q15MIN PRN PRN Reason: BG <70, and no IV access Sodium Chloride (Ns) 1,000 mls @ 100 mls/hr IV .Q10H MATT Stop: 03/27/25 12:59 Last Admin: 02/25/25 14:19 Dose: 100 mls/hr Insulin Human Lispro (Insulin Lispro (Admelog) 1 Unit/0.01 Ml Unit) 0 unit SC AC MATT; Protocol Stop: 03/27/25 16:59 Memantine (Memantine Hcl 5 Mg Tablet) 5 mg PO BID MATT Stop: 03/27/25 20:59 Morphine Sulfate (Morphine Sulf Inj 10 Mg/Ml Vial) 2 mg IVP Q4HR PRN PRN Reason: PAIN SCALE 7-10 (Severe Stop: 03/02/25 15:09 Ondansetron HCl (Ondansetron Inj 2 Mg/Ml Inj 2 Ml) 4 mg IV Q4HR PRN PRN Reason: NAUSEA OR VOMITING Stop: 03/27/25 12:53 Pantoprazole Sodium (Pantoprazole 40 Mg Tablet) 40 mg PO QDAY MATT Stop: 03/27/25 15:14 Sodium Chloride (Sodium Chloride Rt Idalmis 0.9% 3 Ml Nebu) 3 ml INH PRN PRN PRN Reason: SOLN Stop: 03/27/25 15:28 Discontinued Medications Aspirin (Aspirin Ec 81 Mg Tabec) 81 mg PO X1 ONE Stop: 02/25/25 15:23 Clopidogrel Bisulfate (Clopidogrel Bisulfate 75 Mg Tablet) 300 mg PO X1 ONE Stop: 02/25/25 15:23 Assessment & Plan Plan Patient is a 74 year old female has a past medical history of CVA (2019), dementia, hypertension, diabetes mellitus type 2 [id number], hyperlipidemia, history of DVTs on Eliquis who was admitted on 02/25/2025 for CVA work up. #CVA rule out Etiology: Given past medical history of CVA in 2019, TIA in 2023, and diabetes mellitus, this puts patient at increased risk of recurrent TIAs as patient has returned to baseline DDx: Seizure can not be ruled out vs syncope given history of bradycardia per patient. Less likely secondary to metabolic causes or GA. Diagnostics: CT Head 02/25/2025: Negative Troponin <0.002 Glucose 123 Plan: -MRI brain w/o contrast -Neuro Checks -Aspirin 81 mg (no Clopidogrel at this time given Eliquis as home medication) -Atorvastatin 20 mg HS -Aspiration Precautions, Head of bed 30 degrees -Euglycemia and avoid Hyperthermia -Acetaminophen PRN -NPO -NS 1 L @ 100 cc -CMP and CBC -Orthostatic Vitals -A1c -Lipid Panel -TSH -UA pending -PT evaluation & Speech Evaluation -Swallow Screen-->if pass, may given low carb consisten diet -Allow for permissive HTN, NO TPA given, Systolic <220 or Diastolic <110 or suspected end organ failure -Labetalol PRN if need be, give if SBP >220 or DBP >110 #Diabetes Mellitus Type II, non-insulin dependent Patient has a past medical history of diabetes mellitus type II with Metformin on board as a home medication. Diagnostics: A1c 5.9% (February 2025) & Glucose on admission 124 Plan: -Hold Metformin, GFR at 48, please avoid if GFR <30 -Sliding Scale Lispro -Monitor Fasting Blood Glucose -hypoglycemic in place #Permissive HTN #Hypertension Past medical history of hypertension with Losartan. Plan -Hold Losartan to allow for permissive HTN, until 12 PM 02/26/2025 -If BP >220/120, may give Labetolol #History of DVT Continue home medication of Eliquis. Plan -Eliquis -Compression Device #Dementia Dementia, likely secondary to vascular given past medical history of CVA in 2019 with slow decline in memory since then. Home medication of memantine, patient's sister stated that it was initially prescribed by neurologist. Diagnostics: MRI (08/2024): Negative for acute hemorrhage mass effect or midline shift. No acute infarct. Chronic multi-infarct dementia pattern Plan -Continue home medication of Memantine -Consider Hydroxyzine if patient need at night #Normocytic Anemia Anemia likely secondary to anemia of chronic disease given normal MCV vs blood loss less likely as patient denied blood in stool or urine Plan -Iron Panel AM & Ferritin Plan -No acute intervention -Iron Panel AM & Ferritin AM #CKD (?) Possible history of CKD given GFR range from 40s to 60s from previous hospitalizations. CKD likely secondary to Diabetes Mellitus Type 2. Kerenia listed as previous medication . Diagnostics: Microalbumin/Cr Ratio <30 (11/2023) UA Pending Plan -Hold [employer] [email or web address] Maintenance: Disp: Pt is currently admitted to floors for further management of CVA rule out, awaiting MRI FEN: NPO-->unitl patient passes swallow-->then transisiton to low carb consistent given diabetes DVT: Eliquis--Compression Device Code: Full Code - The patient's plan was discussed with attending Dr. Marte and senior residents Dr. Jessica Vasquez MD PGY1 Internal Medicine Attending Provider Attestation/Addendum I have discussed and was present for the essential components of the history, physical examination, diagnosis, and treatment plan with the resident. I agree with the patient's care as documented by the resident and amended herein by me. Baldo Marte, DO. Patient seen and evaluated this AM. In Short, patient is a a 74-year-old female with a significant past medical history of previous CVA with speech deficits, hypertension, DVT on Eliquis, type 2 diabetes, HLD, history of bradycardia and vascular dementia, presented to the ED with left-sided weakness and slurred speech which occurred since noon today. He in the ED, vital signs are stable, patient afebrile, CBC demonstrated a hemoglobin of 11.3, BMP largely unremarkable, last echo in 2023 demonstrated an EF of [address] head on this visit did not demonstrate any acute intracranial pathology, CTA also unremarkable. Teleneuro consulted, suspect TIA, will obtain MRI, will double check with neurology, DAPT was recommended by teleneurologist however the patient is on Eliquis hence we will reach out to Dr Eason for additional recommendations, permissive hypertension will be maintained for 24 hours, echo ordered, lipid panel and A1c ordered, physical therapy ordered, I also ordered an iron panel considering I do not have a documented history of anemia or other a cause, however she has been a bit low on occasion in the past. UA was ordered by ED and is pending, stroke measures will be ordered and orthostatic vital signs will also be ordered. Neurology consulted, appreciate recommendations. Although this document has been carefully reviewed, there may still be some phonetic and other typographical errors. These errors are purely grammatical due to imperfections in the software program and should not be construed in any way to compromise the substance of the patient's medical care during this visit.
[2025-02-25 15:52] LABS: Glucose Estimated Average 123 mg/dL (80-131); Hemoglobin A1C 5.9 % Hgb (4.8-6.0)
[2025-02-25] MEDS: PANTOPRAZOLE 40 MG TABLET PO (16:58)
[2025-02-25] MEDS: ASPIRIN EC 81 MG TABEC PO (16:58)
--- NOTE | 2025-02-25 18:28 | PD.RESCONSUL ---
HPI Data of Consult Requesting Physician: Marcos Marte DO Admitting Provider: Marcos Marte DO Attending Provider: Marcos Marte DO Primary Care Provider: Gurwinder Nicole Consult Narrative Reason for consult: History of bradycardia, patient of Dr. Paz History of present illness: Patient is a 74-year-old female with past medical history of dementia, CVAs and TIAs since 2019, residual speech impairment, non-insulin dependent type 2 diabetes, hyperlipidemia, DVT (on Eliquis), Valley Fever, and GERD, who was brought in by ambulance to the ED on 02/24/2025 due to episode of weakness today at approximately 12:20 pm. Sister who the patient lives with is present at the bedside to help provide history. She states that they were going to the patient's scheduled cardiology appointment with Dr. Paz and found out the office had moved locations. While leaving the building and coming down the elevator, the patient suddenly had an episode of weakness and slumped against her sister. Sister reports that the left hand was clenched in a fist and there did not seem to be any focal or one-sided weakness, just generalized weakness of both legs. Sister supported the patient against the wall until she got to the first floor and the patient was helped to a wheelchair. Subsequently, EMS arrived and patient was transported just across the street to the ER. The patient was awake, able to make eye contact, and did not lose consciousness. Patient was silent and would not answer the sister's questions asking what was wrong during this episode. Patient did not have any neurologic deficits by the time she was evaluated in the ambulance bay in the ER at 12:44. At the time of evaluation, the patient is alert, awake, but with baseline speech impairment. She denies any complaints. She does endorse and remember the episode of weakness and feeling generally tired today but is not sure why this happened. Patient denies any symptoms of chest pain, shortness of breath, dizziness, headache, nausea, or presyncope. Patient recently had a stress test done at Dr. Paz's office which was normal. Patient has had progressive dementia and cognitive decline since 30 years ago according to the sister who is her caregiver and is fully dependent with all ADLs. ED Course: -Initial vitals were BP 156/76, HR 62, RR 18, Temp 98.1, O2 97% on room air -Labs significant for chronic normocytic anemia Hgb 11.3, creatinine 1.2, GFR 48, glucose 124, troponin was <0.002 -EKG showed sinus rhythm with a rate of 62 -Head CT and head and neck CTA were negative for any acute findings -[facility] had evaluated the patient and recommended admission for stroke rule out. Patient was not a thrombolytic candidate due to lack of disabling symptoms. -In the ED, patient was given NS IV fluid, pantoprazole 40 mg PO x1, aspirin 81 mg PO x1 -Patient was admitted for acute stroke rule out -Rubber Grinder Dr. Paz was consulted to follow the patient, possibly history of bradycardia Review of Systems Review of systems otherwise negative except what is mentioned above. cc:: cc: Marcos Marte, DO Past Medical History Past Medical History Comments PMH COMMENT: Past Medical History: Dementia, CVAs and TIAs since 2019, residual speech impairment, non-insulin dependent type 2 diabetes, hyperlipidemia, DVT (on Eliquis), Valley Fever (treated in 2018), and GERD. Per patient's sister, she has had slowly progressive dementia for 30 years. Family History: Notable for stroke and cancer in mother, cancer in father. 10 siblings, unknown other siblings' health. Patient has no children of her own. Surgical History: Cholecystectomy, G-tube placed in 2020 for 1.5 year due to dysphagia and removed in 2021 Social History: Denies history of smoking, denies current alcohol use, denies recreational drug use. Patient lives with sister who is the primary interior plant caretaker and the sister's . Patient is dependent with all IADLs and ADLs. She is able to ambulate but when going out or longer distance utilizes a cane or walker. Patient is incontinent and uses briefs. 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 Current Medications: Includes Eliquis 5 mg BID, aspirin 81 mg qday, memantine, metformin, blood pressure medication, cholesterol medication (Source: Patient's sister, unsure of full list of medications at this time) Allergies: No known drug allergies Exam Vital Signs Temp Pulse Resp BP Pulse Ox O2 Del Method 98.1 F 76 20 156/76 H 98 Room Air 02/25/25 14:03 02/25/25 18:18 02/25/25 18:18 02/25/25 14:03 02/25/25 18:18 02/25/25 14:03 Narrative Exam Physical Exam General: Awake and in no acute distress. Pleasant, answering questions appropriately, non-toxic appearing. Mild dysarthria present. Comprehends simple questions, answers yes and no and speaks in short phrases, unable to answer complex questions. HEENT: Normocephalic, atraumatic, mucous membranes moist. Heart: Regular rate and rhythm, no murmurs. Lungs: Clear to auscultation with no wheezing or crackles. Abdomen: Soft, obese, nondistended, nontender, positive bowel sounds. ?No guarding or rebound tenderness. Neuro Stroke Exam: -Alert and oriented x3. -CN II-XII intact. -Normal visual patel. -Slightly dysarthric speech, baseline for the patient. -No facial droop. -Strength 5/5 bilateral arms, 5/5 news librarian strength. -Strength 5/5 bilateral lower extremities. -Intact sensation bilaterally. -Normal [id number], normal [id number] testing. Extremities: No edema. Skin: No rash or ecchymoses. Results Labs 02/26/25 04:20 02/26/25 04:20 Labs: Short CBC 02/25/25 Range/Units 13:10 WBC 7.9 (3.6-11.0) Thou/mm3 Hgb 11.3 L (12.0-16.0) g/dL Hct 34.7 L (36.0-46.0) % Plt Count 332 (140-440) Thou/mm3 BMP 02/25/25 13:10 Sodium 139 Potassium 4.0 Chloride 104 Carbon Dioxide 26.4 BUN 11 Creatinine 1.2 Glucose 124 H Calcium 9.3 Cardiac Enzymes 02/25/25 Range/Units 13:10 Troponin I < 0.002 (0.0-0.045) ng/mL Liver Function 02/25/25 Range/Units 13:10 Total Bilirubin 0.6 (0.3-1.2) mg/dL AST 18 (0-34) U/L ALT 9 L (10-49) U/L Alkaline Phosphatase 95 (46-116) U/L Albumin 4.0 (3.4-4.8) gm/dL Urine 02/25/25 Range/Units 14:48 Urine Color Colorless A (Lt Yel-Yel) Urine Clarity Clear (Clear/Hazy) Urine pH 6.5 (5.0-7.0) Ur Specific [place] 1.020 (1.001-1.035) Urine Protein Negative (Neg - Trace) Urine Glucose (UA) 4+ A (Negative) ABG Interpretation ABG results: 02/25/25 13:37 ABG pH 7.39 ABG pCO2 45 ABG pO2 79 L ABG HCO3 27 H ABG O2 Saturation 96 ABG Base Excess 2 Quality Measures Quality Measures stroke Suspected type of Stroke: Unknown at this time Tenecteplase given: Reason(s) Tenecteplase not given: Stroke severity too mild (non-disabling) not given Rehab services: PT evaluation ordered and Speech Language Pathology eval ordered VTE Prophylaxis: pharmaceutical Antithrombotic by day 2:: not indicated (describe) Statin ordered: <75 y/o high intensity dose Anticoagulation ordered for A-fib or flutter (current or hx): ordered Advance care planning discussed with:: patient Medications Home Medications and Allergies Home Medications ?Medication ?Instructions ?Recorded ?Confirmed ?Type montelukast 10 mg tablet 10 mg PO QPM 02/20/18 09/06/24 History (Singulair) diphenoxylate-atropine 2.5 1 tab PO QID PRN Diarrhea 08/27/23 02/26/25 History mg-0.025 mg tablet ergocalciferol (vitamin D2) 1,250 50,000 unit PO QWEEK 08/27/23 09/06/24 History mcg (50,000 unit) capsule famotidine 20 mg tablet 20 mg PO QDAY 08/27/23 02/26/25 History folic acid 1 mg tablet 1 mg PO QDAY 08/27/23 02/26/25 History hydroxyzine HCl 25 mg tablet 25 mg PO HS 08/27/23 02/26/25 History memantine 5 mg tablet 5 mg PO BID 08/27/23 02/26/25 History vibegron 75 mg tablet (Gemtesa) 75 mg PO QDAY 08/27/23 02/26/25 History albuterol sulfate 90 mcg/actuation 2 inh inhalation Q4HR PRN sob 09/06/24 09/06/24 History aerosol inhaler apixaban 5 mg tablet (Eliquis) 5 mg PO BID 09/06/24 02/26/25 History finerenone 10 mg tablet (Kerendia) 10 mg PO QDAY 09/06/24 02/26/25 History Held on 02/26/25. Instructions: Hold until you see your primary care provider, orthostatic positive celecoxib 200 mg capsule (Celebrex) 200 mg PO BID 02/26/25 02/26/25 History cholecalciferol (vitamin D3) 50 50 mcg PO QDAY 02/26/25 02/26/25 History mcg (2,000 unit) tablet (D3 DOTS) patiromer calcium sorbitex 25.2 25.2 g PO BID 02/26/25 02/26/25 History gram oral powder packet (Veltassa) Allergies Allergy/AdvReac Type Severity Reaction Status Date / Time No Known Allergies Allergy Verified 05/24/23 14:01 Visit Medications Acetaminophen (Acetaminophen 325 Mg Tablet) 650 mg PO Q6H PRN PRN Reason: Pain 1-3 or Fever >100.3 Stop: 03/27/25 15:09 Hydrocodone Bitart/Acetaminophen (Hydrocodone/Apap 5/325 Tablet) 1 tab PO Q4HR PRN PRN Reason: PAIN SCALE 4-6 (Moderate Stop: 03/02/25 15:09 Albuterol (Albuterol Rt 2.5 Mg/0.5 Ml Nebu) 2.5 mg INH Q4HRRT PRN PRN Reason: shortness of breath Stop: 03/27/25 18:59 Apixaban (Apixaban 2.5 Mg Tablet) 5 mg PO BID MATT Stop: 03/18/25 20:59 Aspirin (Aspirin Ec 81 Mg Tabec) 81 mg PO QDAY MATT Stop: 03/28/25 08:59 Atorvastatin Calcium (Atorvastatin Calcium 20 Mg Tablet) 20 mg PO HS MATT Stop: 03/27/25 20:59 Dextrose (Dextrose 50%-Water Inj 50 Ml Syringe) 25 ml IV Q15MIN PRN PRN Reason: BG 50-70 responsive npo pt Stop: 03/27/25 15:25 Dextrose (Dextrose 50%-Water Inj 50 Ml Syringe) 50 ml IV Q15MIN PRN PRN Reason: BG <50 OR BG <70 & pt unresponsive Stop: 03/27/25 15:25 Docusate Sodium (Docusate Sod 100 Mg Capsule) 100 mg PO QDAY PRN; Protocol PRN Reason: CONSTIPATION Stop: 03/27/25 15:09 Glucagon (Glucagon Inj 1 Mg Vial) 1 mg IM Q15MIN PRN PRN Reason: BG <70, and no IV access Sodium Chloride (Ns) 1,000 mls @ 100 mls/hr IV .Q10H [facility] Stop: 03/27/25 12:59 Last Admin: 02/25/25 14:19 Dose: 100 mls/hr Insulin Human Lispro (Insulin Lispro (Admelog) 1 Unit/0.01 Ml Unit) 0 unit SC AC MATT; Protocol Stop: 03/27/25 16:59 Last Admin: 02/25/25 18:00 Dose: Not Given Memantine (Memantine Hcl 5 Mg Tablet) 5 mg PO BID [facility] Stop: 03/27/25 20:59 Morphine Sulfate (Morphine Sulf Inj 10 Mg/Ml Vial) 2 mg IVP Q4HR PRN PRN Reason: PAIN SCALE 7-10 (Severe Stop: 03/02/25 15:09 Ondansetron HCl (Ondansetron Inj 2 Mg/Ml Inj 2 Ml) 4 mg IV Q4HR PRN PRN Reason: NAUSEA OR VOMITING Stop: 03/27/25 12:53 Pantoprazole Sodium (Pantoprazole 40 Mg Tablet) 40 mg PO QDAY [facility] Stop: 03/27/25 15:14 Last Admin: 02/25/25 16:58 Dose: 40 mg Sodium Chloride (Sodium Chloride Rt Idalmis 0.9% 3 Ml Nebu) 3 ml INH PRN PRN PRN Reason: SOLN Stop: 03/27/25 15:28 Discontinued Medications Aspirin (Aspirin Ec 81 Mg Tabec) 81 mg PO X1 ONE Stop: 02/25/25 15:23 Last Admin: 02/25/25 16:58 Dose: 81 mg Clopidogrel Bisulfate (Clopidogrel Bisulfate 75 Mg Tablet) 300 mg PO X1 ONE Stop: 02/25/25 15:23 Last Admin: 02/25/25 17:00 Dose: Not Given Assessment & Plan Plan 74-year-old female with past medical history of dementia, CVAs and TIAs since 2019, residual speech impairment, non-insulin dependent type 2 diabetes, hyperlipidemia, DVT (on Eliquis), Valley Fever, and GERD, who was brought in by ambulance to the ED on 02/24/2025 due to episode of weakness 02/25/2025 at approximately 12:20 pm. She was subsequently admitted for stroke rule out. #Episode of acute generalized weakness #Acute ischemic stroke to be ruled out Patient had episode of generalized weakness and non-responsiveness to verbal prompting lasting only a few minutes. Patient conscious during full episode, back to baseline by the time she was taken across the street to the ED. Given clinical presentation and lack of focal neurologic findings at any point during the episode, less likely to be stroke or even TIA. Other etiologies of sudden onset of weakness includes syncopal episode, symptomatic bradycardia, arrhythmia, musculoskeletal weakness, orthostasis, psychologic etiologies. A1c on admission 5.9 Troponin was negative. 02/25/2025 Transthoracic echo showed bubble study negative without any evidence of any PFO or ASD. Normal LV function and size with an EF of 55 to 60%. Stage I diastolic dysfunction. Mild LVH. Normal RV size and function with normal RVSP. Mild TR. Mild LA dilatation. Mild MR and mild MAC. Mild to moderate aortic valve sclerosis without stenosis. -Continuous telemetry monitoring, neurochecks, aspiration precautions -Allow permissive hypertension, systolic <220 and diastolic <120 -Await MRI -Obtain lipid panel, TSH -Continue aspirin 81 mg qday -Continue atorvastatin #Bradycardia Patient with history of possible bradycardia. Seen by Dr. Paz outpatient. Recently had stress testing done which was normal. EKG on admission showed sinus rhythm with a rate of 62. Troponin negative. -Continuous telemetry -Monitor for symptoms -Avoid beta-blocking or rate slowing agents #History of DVT Known history of DVT. Formerly on Xarelto but was switched to Eliquis. -Continue Eliquis 5 mg BID #History of hypertension On admission BP is 156/76. Patient takes BP medication which is not remembered at this time. -Allow permissive hypertension in setting of stroke rule out Rest of conditions to continue current management per primary team: #History of normocytic anemia #History of dementia #History of non-insulin dependent type 2 diabetes Patient was discussed with the Cardiology attending, Dr. Paz. Thank you for allowing us to participate in the care of this patient. Niecy Prescott, PGY-2 Attending Provider Attestation/Addendum I have personally seen and examined the patient separately on the above date of service and discussed the plan of care with the resident. I reviewed the resident Dr.Tiffani Prescott consultation progress note and agree with the resident findings and plan in the note above and have also edited the documentation to reflect my findings and plan. 74-year-old female with past medical history of multiple CVA as well as TIA since the last 5 years, mild dementia (possible vascular and senile) with residual speech defects, mild weakness, type 2 diabetes mellitus, essential hypertension, hyperlipidemia, DVT on Eliquis, history of valley fever, GERD, chronic mild anemia was brought to the emergency department for further evaluation of episode of weakness and near syncope. Patient was supposed to see me in the office today and was in the elevator and she has an episode of weakness in the slumped against her 60 and she was noted to have one-sided weakness and hence EMS was called and brought to the emergency department for further evaluation. In the emergency department teleneurology was consulted and given her history of previous TIAs and stroke patient was admitted for further workup of the same. Patient denied any Chest pain chest pressure or shortness of breath except on the weakness. Given her history of previous strokes and diabetes hypertension and other risk factors patient sent for cardiac evaluation and she did have the workup done including a nuclear stress test which was negative for any stress-induced ischemia and EF was normal with no evidence of any transient ischemic dilatation. Patient was coming in for the results of the same test. Emergency sales department clerk CT as well as head and neck CT were negative. EKG showed sinus rhythm without any acute ST-T changes. Labs reviewed and hemoglobin at baseline mild anemia troponin was negative. The rest of the vitals were stable except for blood pressure is mildly elevated in the ED previously and has been in the emergency department. Assessment and plan: 1. Rule out acute stroke 2. Generalized weakness 3. History of CVA and TIA with residual speech deficits likely 4. Diabetes continue type II 5. Essential hypertension 6. History of DVT on Eliquis 7. Hyperlipidemia 8. Chronic anemia Patient's overall presentation appears to be secondary to generalized weakness and possible mild dehydration on arrival. Head and neck CTA as well as CT head was negative. Does not appear to be a stroke and there is no evidence of any syncope. Patient was seen by neurology and and further workup started for the stroke and awaiting MRI at the present moment. Primary team also trying to rule out any kind of infection. Patient denies any chest pain chest pressure or shortness of breath or other cardiac ablation. Troponins were negative. EKG did not show any acute ST-T changes. She did recently have a stress test in my office which did not show any evidence of any stress-induced ischemia. EF was normal and greater than 60%. There was no transient ischemic dilatation. No further cardiac workup recommended at the present moment. Echo was also ordered with bubble study which we will follow. Continue aspirin statin Eliquis for now. Check TSH A1c and lipid profile. Permissive hypertension for now and systolic blood pressure of 140 to 150 mm hg. Continue to monitor closely on telemetry. Marlon Paz M.D. Interventional Cardiology
[2025-02-25] MEDS: ATORVASTATIN CALCIUM 20 MG TABLET PO (20:44)
[2025-02-25] MEDS: MEMANTINE HCL 5 MG TABLET PO (20:44)
[2025-02-25] MEDS: APIXABAN 2.5 MG TABLET 5 MG PO (20:46)
--- NOTE | 2025-02-25 22:51 | RESP.EEG ---
EEG COMPLETED AND READY FOR REVIEW.
--- NOTE | 2025-02-25 23:10 | PC.NURSE ---
only able to obtain limited admission information due to patients confusion. Attempted to call phone numbers on file with no answer, history obtained through chart review.
[2025-02-26] VITALS (13 sets, daily range): BP systolic 108–150; BP diastolic 64–87; PULSE 51–81; RESP 16–97; TEMP 36.1–36.6; O2SAT 95–98
[2025-02-26] MEDS: SODIUM CHLORIDE 0.9% 1000 ML 1,000 ML 100 ML IV ×2 (05:24→20:10)
[2025-02-26 05:40] LABS: Basophils % (Auto) 1 % (0-2.5); Eosinophils # (Auto) 0.2 Thou/mm3 (0.0-0.5); Eosinophils % (Auto) 3 % (0-10); Hematocrit 33.2 % (36.0-46.0); Hemoglobin 10.7 g/dL (12.0-16.0); Immature Granulocytes % (Auto) 0 % (0-0); Immature Granulocytes Auto 0.01 Thou/mm3 (0.00-0.00); Lymphocytes # (Auto) 1.7 Thou/mm3 (1.0-4.8); Lymphocytes % (Auto) 24 % (10-50); Mean Corpuscular HGB Conc 32.2 g/dl (31.0-37.0); Mean Corpuscular Hemoglobin 26.8 pg (25.0-35.0); Mean Corpuscular Volume 83 fL (80-100); Monocytes # (Auto) 0.6 Thou/mm3 (0.0-0.8); Monocytes % (Auto) 9 % (0-12); Neutrophils # (Auto) 4.3 Thou/mm3 (1.8-7.7); Neutrophils % (Auto) 64 % (37-80); Nucleated Red Blood Cell % 0 /100 WBC (0); Platelet Count 287 Thou/mm3 (140-440); RDW Standard Deviation 49.2 fL (36.4-46.3); Red Blood Count 3.99 Miln/mm3 (4.00-5.20); White Blood Count 6.8 Thou/mm3 (3.6-11.0)
[2025-02-26 06:05] LABS: Ferritin 9 ng/mL (7.3-270.7); Iron 44 mcg/dL (50-170); Percent Iron Saturation 12 % (20-55); Total Iron Binding Capacity 342 mcg/dL (250-425); Unsaturated Iron Binding 298 (225-295)
[2025-02-26 06:44] LABS: Alanine Aminotransferase 8 U/L (10-49); Albumin, Serum 3.6 gm/dL (3.4-4.8); Albumin/Globulin Ratio 1.3 (1.2-2.2); Alkaline Phosphatase 84 U/L (46-116); Anion Gap 10 (7-16); Aspartate Amino Transferase 18 U/L (0-34); BUN/Creatinine Ratio 9 Ratio (12-20); Bilirubin,Total 0.7 mg/dL (0.3-1.2); Blood Urea Nitrogen 10 mg/dL (9-23); Calcium (Corrected) 9.3 mg/dL (8.5-10.1); Carbon Dioxide 24.4 mMol/L (20.0-31.0); Cardiac Risk Estimate 2.5 RATIO (3.7-5.6); Chloride 107 mMol/L (98-107); Cholesterol 159 mg/dL (132-200); Creatinine (Component) 1.1 mg/dL (0.6-1.3); Globulin 2.7 gm/dL (2.3-3.5); Glucose 76 mg/dL (74-106); HDL Cholesterol 64 mg/dL (40-60); LDL Cholesterol,Calculated 79 mg/dL (0-130); Magnesium 1.8 mg/dL (1.6-2.6); Osmolality,Calculated 279 (275-295); Phosphorous 3.8 mg/dL (2.4-5.1); Potassium 4.2 mMol/L (3.4-5.1); Sodium 141 mMol/L (136-145); Thyroid Stimulating Hormone 2.66 uIU/mL (0.55-4.78); Total Protein 6.3 gm/dL (5.7-8.2); Triglycerides 81 mg/dL (30-150); eGFR 53 See Note
[2025-02-26] MEDS: APIXABAN 2.5 MG TABLET 5 MG PO ×2 (08:07→20:09)
[2025-02-26] MEDS: PANTOPRAZOLE 40 MG TABLET PO (08:07)
[2025-02-26] MEDS: ASPIRIN EC 81 MG TABEC PO (08:07)
[2025-02-26] MEDS: MEMANTINE HCL 5 MG TABLET PO ×2 (08:07→20:09)
[2025-02-26] MEDS: LOSARTAN POTASSIUM 25 MG TABLET PO (09:16)
--- NOTE | 2025-02-26 12:02 | PC.SS ---
AUTOMOTIVE UPHOLSTERER conducted bedside contact with the patient conduct initial assessment and to discuss discharge planning.? At bedside with patient was sister, Tracee Flood .? Sister provided information for assessment and discharge planning.? Patient resides at home with sister.? Patient utilizes a walker to assist with ambulation.? Patient utilizes home oxygen.? Vendor is [employer].? Patient requires assistance with completion of ADL?s.? Patient?s sister assists patient with completion of ADL?s. ?Patient?s surrogate medical decision maker is sister, Tracee Flood.? Patient?s PCP is Gurwinder Shelton.? The patient?s talkback host is Dr. Phelps.? Patient does not participate with dialysis.? Patient utilizes [facility] for medication services. ?Discharge plan is for the patient to return home.? If home health is recommended preferred vendor is [email or web address].? Patient?s sister will provide transportation on behalf of the patient.? No further discharge needs identified by the patient.? No further intervention required at this time, social work program coordinator will be available to address any further concerns.? Next of Kin: Tracee Remigio D/C Plan: Home
--- NOTE | 2025-02-26 13:50 | PD.RESPRO ---
Documentation for date of: 02/26/25 Subjective Subjective Interval history: No acute events overnight.?Patient seen and examined at bedside this AM.?Patient is awake and alert, feeling quite well this morning with no complaints, able to sleep well. She denies any episodes of weakness, dizziness, headache, speech or vision changes. Labs and vitals were reviewed.?24-hour telemetry reviewed. HR has ranged in the 50-60 range. No acute arrhythmia events or pauses. No further complaints at this time. MRI was negative for acute stroke. Echo showed normal EF and diastolic dysfunction. Patient may follow up in office after discharge. Review of systems otherwise negative except what is mentioned above. Exam Vital Signs Temp Pulse Resp BP Pulse Ox O2 Del Method 97.6 F 59 L 17 146/64 H 95 Room Air 02/26/25 11:49 02/26/25 12:00 02/26/25 11:49 02/26/25 11:49 02/26/25 11:49 02/26/25 07:51 Narrative Exam Physical Exam General: Awake and in no acute distress. Pleasant, answering questions appropriately, non-toxic appearing. Mild dysarthria present. Comprehends simple questions, answers yes and no and speaks in short phrases, unable to answer complex questions. HEENT: Normocephalic, atraumatic, mucous membranes moist. Heart: Regular rate and rhythm, no murmurs. Lungs: Clear to auscultation with no wheezing or crackles. Abdomen: Soft, obese, nondistended, nontender, positive bowel sounds. ?No guarding or rebound tenderness. Neuro Stroke Exam: -Alert and oriented x3. -CN II-XII intact. -Normal visual patel. -Slightly dysarthric speech, baseline for the patient. -No facial droop. -Strength 5/5 bilateral arms, 5/5 [employer] strength. -Strength 5/5 bilateral lower extremities. -Intact sensation bilaterally. -Normal yqctaj-ef-[id number], normal owld-nk-[id number] testing. Extremities: No edema. Skin: No rash or ecchymoses. Objective Labs 02/26/25 04:20 02/26/25 04:20 Labs: Laboratory Results - last 24 hr 02/25/25 02/25/25 02/26/25 13:10 14:48 04:20 WBC 6.8 RBC 3.99 L Hgb 10.7 L Hct 33.2 L MCV 83 MCH 26.8 MCHC 32.2 RDW Std Deviation 49.2 H Plt Count 287 D Neut % (Auto) 64 Lymph % (Auto) 24 [place] % (Auto) 9 Eos % (Auto) 3 Baso % (Auto) 1 Neut # (Auto) 4.3 Lymph # (Auto) 1.7 [place] # (Auto) 0.6 Eos # (Auto) 0.2 Baso # (Auto) 0.0 Immature Gran # (Auto) 0.01 H Absolute Nucleated RBC 0.00 Immature Gran % 0 Nucleated RBC % 0 Sodium 139 141 Potassium 4.0 4.2 Chloride 104 107 Carbon Dioxide 26.4 24.4 Anion Gap 9 10 BUN 11 10 Creatinine 1.2 1.1 Estim Creat Clear Calc 36.4 L 40.0 L eGFR 48 L 53 L BUN/Creatinine Ratio 9 L 9 L Glucose [address] Glu mg/dL 123 Hemoglobin A1c 5.9 Calculated Osmolality 277 279 Calcium 9.3 9.0 Corrected Calcium 9.3 9.3 Phosphorus 3.8 Magnesium 1.7 1.8 Iron 44 L TIBC 342 Iron Saturation 12 L Unsat Iron Binding 298 H Ferritin 9 Total Bilirubin 0.6 0.7 AST 18 18 ALT 9 L 8 L Alkaline Phosphatase 95 84 Troponin I < 0.002 Total Protein 7.0 6.3 Albumin 4.0 3.6 Globulin 3.0 2.7 Albumin/Globulin Ratio 1.3 1.3 Triglycerides 81 Cholesterol 159 LDL Cholesterol, Calc 79 HDL Cholesterol 64 H Cholesterol/HDL Ratio 2.5 L TSH 2.66 Ur Collection Type Clean Catch Urine Color Colorless A Urine Clarity Clear Urine pH 6.5 Ur Specific [place] 1.020 Urine Protein Negative Urine Glucose (UA) 4+ A Urine Ketones Negative Urine Blood Negative Urine Nitrite Negative Urine Bilirubin Negative Urine Urobilinogen (Auto) Negative Ur Leukocyte Esterase Positive Urine RBC 1 Urine WBC 18 H Ur Squamous Epith Cells 0 Urine Bacteria None ABG Interpretation ABG results: 02/25/25 13:37 ABG pH 7.39 ABG pCO2 45 ABG pO2 79 L ABG HCO3 27 H ABG O2 Saturation 96 ABG Base Excess 2 Quality Measures Quality Measures stroke Suspected type of Stroke: Unknown at this time Tenecteplase given: Reason(s) Tenecteplase not given: Stroke severity too mild (non-disabling) not given Rehab services: PT evaluation ordered and Speech Language Pathology eval ordered VTE Prophylaxis: pharmaceutical Antithrombotic by day 2:: not indicated (describe) Statin ordered: <75 y/o high intensity dose Anticoagulation ordered for A-fib or flutter (current or hx): ordered Advance care planning discussed with:: patient Assessment & Plan Assessment Current Active Medications: Generic Name Dose Route Start Last Admin Trade Name Freq PRN Reason Stop Dose Admin Acetaminophen 650 mg 02/25/25 15:10 Acetaminophen 325 Mg Tablet PO 03/27/25 15:09 Q6H PRN Pain 1-3 or Fever >100.3 Hydrocodone Bitart/Acetaminophen 1 tab 02/25/25 15:10 Hydrocodone/Apap 5/325 Tablet PO 03/02/25 15:09 Q4HR PRN PAIN SCALE 4-6 (Moderate Albuterol 2.5 mg 02/25/25 15:29 Albuterol Rt 2.5 Mg/0.5 Ml Nebu INH 03/27/25 18:59 Q4HRRT PRN shortness of breath Apixaban 5 mg 02/25/25 21:00 02/26/25 08:07 Apixaban 2.5 Mg Tablet PO 03/18/25 20:59 5 mg BID MATT Administration Aspirin 81 mg 02/26/25 09:00 02/26/25 08:07 Aspirin Ec 81 Mg Tabec PO 03/28/25 08:59 81 mg QDAY MATT Administration Atorvastatin Calcium 20 mg 02/25/25 21:00 02/25/25 20:44 Atorvastatin Calcium 20 Mg Tablet PO 03/27/25 20:59 20 mg HS MATT Administration Benzonatate 100 mg 02/26/25 08:56 Benzonatate 100 Mg Capsule PO 03/28/25 08:55 Q8HR PRN COUGH Protocol Dextrose 25 ml 02/25/25 15:26 Dextrose 50%-Water Inj 50 Ml Syringe IV 03/27/25 15:25 Q15MIN PRN BG 50-70 responsive npo pt Dextrose 50 ml 02/25/25 15:26 Dextrose 50%-Water Inj 50 Ml Syringe IV 03/27/25 15:25 Q15MIN PRN BG <50 OR BG <70 & pt unresponsive Docusate Sodium 100 mg 02/25/25 15:10 Docusate Sod 100 Mg Capsule PO 03/27/25 15:09 QDAY PRN CONSTIPATION Protocol Glucagon 1 mg 02/25/25 15:26 Glucagon Inj 1 Mg Vial IM Q15MIN PRN BG <70, and no IV access Sodium Chloride 1,000 mls @ 100 mls/hr 02/25/25 13:00 02/26/25 09:17 Ns IV 03/27/25 12:59 Not Given .Q10H MATT Insulin Human Lispro 0 unit 02/26/25 11:30 02/26/25 11:33 Insulin Lispro (Admelog) 1 Unit/0.01 Ml Unit SC 03/28/25 11:29 Not Given AC MATT Protocol Losartan Potassium 25 mg 02/26/25 09:00 02/26/25 09:16 Losartan Potassium 25 Mg Tablet PO 03/28/25 08:59 25 mg QDAY MATT Administration Memantine 5 mg 02/25/25 21:00 02/26/25 08:07 Memantine Hcl 5 Mg Tablet PO 03/27/25 20:59 5 mg BID MATT Administration Morphine Sulfate 2 mg 02/25/25 15:10 Morphine Sulf Inj 10 Mg/Ml Vial IVP 03/02/25 15:09 Q4HR PRN PAIN SCALE 7-10 (Severe Ondansetron HCl 4 mg 02/25/25 12:54 Ondansetron Inj 2 Mg/Ml Inj 2 Ml IV 03/27/25 12:53 Q4HR PRN NAUSEA OR VOMITING Pantoprazole Sodium 40 mg 02/25/25 15:15 02/26/25 08:07 Pantoprazole 40 Mg Tablet PO 03/27/25 15:14 40 mg QDAY MATT Administration Sodium Chloride 3 ml 02/25/25 15:29 Sodium Chloride Rt Idalmis 0.9% 3 Ml Nebu INH 03/27/25 15:28 PRN PRN SOLN Plan 74-year-old female with past medical history of dementia, CVAs and TIAs since 2019, residual speech impairment, non-insulin dependent type 2 diabetes, hyperlipidemia, DVT (on Eliquis), [place], and GERD, who was brought in by ambulance to the ED on 02/24/2025 due to episode of weakness 02/25/2025 at approximately 12:20 pm. She was subsequently admitted for stroke rule out. #Episode of acute generalized weakness #Acute ischemic stroke to be ruled out Patient had episode of generalized weakness and non-responsiveness to verbal prompting lasting only a few minutes. Patient conscious during full episode, back to baseline by the time she was taken across the street to the ED. Given clinical presentation and lack of focal neurologic findings at any point during the episode, less likely to be stroke or even TIA. Other etiologies of sudden onset of weakness includes syncopal episode, symptomatic bradycardia, arrhythmia, musculoskeletal weakness, orthostasis, psychologic etiologies. A1c on admission 5.9 Troponin was negative. 02/25/2025 Transthoracic echo showed bubble study negative without any evidence of any PFO or ASD. Normal LV function and size with an EF of 55 to 60%. Stage I diastolic dysfunction. Mild LVH. Normal RV size and function with normal RVSP. Mild TR. Mild LA dilatation. Mild MR and mild MAC. Mild to moderate aortic valve sclerosis without stenosis. MRI brain showed no acute infarcts, severe cortical atrophy. Lipid panel showed TC 159, TG 81, LDL 79, HDL 64. TSH normal at 2.66. -Continuous telemetry monitoring -Continue aspirin 81 mg qday -Continue atorvastatin #Bradycardia Patient with history of possible bradycardia. Seen by Dr. Paz outpatient. Recently had stress testing done which was normal. EKG on admission showed sinus rhythm with a rate of 62. Troponin negative. -Continuous telemetry -Monitor for symptoms -Avoid beta-blocking or rate slowing agents #History of DVT Known history of DVT. Formerly on Xarelto but was switched to Eliquis. -Continue Eliquis 5 mg BID #History of hypertension On admission BP is 156/76. Patient takes BP medication which is not remembered at this time. -Allow permissive hypertension in setting of stroke rule out Rest of conditions to continue current management per primary team: #History of normocytic anemia #History of dementia #History of non-insulin dependent type 2 diabetes Patient was discussed with the Cardiology attending, Dr. Paz. Thank you for allowing us to participate in the care of this patient. Niecy Prescott, PGY-2 Attending Provider Attestation/Addendum I have personally seen and examined the patient separately on the above date of service and discussed the plan of care with the resident. I reviewed the resident Dr. Niecy Prescott consultation progress note and agree with the resident findings and plan in the note above and have also edited the documentation to reflect my findings and plan. Marlon Paz M.D. Interventional Cardiology
--- NOTE | 2025-02-26 14:17 | ESPR_ITS ---
<Statement entered by Gabrielle Lopez MD - 02/26/25 14:43> No acute overnight events. Patient was seen and examined at bedside. Hemodynamically patient is stable, pending EEG, speech evaluation as well as PT recommendations. Will follow-up with Dr. Eason's recommendations. Anticipate discharge in the next 24 hours. I personally saw and examined the patient and discussed the assessment and plan with the entire medicine team, including my attending Dr. Marte, Gabrielle Lopez M.D. PGY-2 Disclaimer: Despite multiple revisions, due to the dictation software being used, the document bellow may not be free of grammatical errors including phonetic/typographic errors. However, this does not deter from our commitment to providing health care in the patient's best interest in mind. Documentation for date of: 02/26/25 Subjective Subjective Interval history: No overnight events. Patient and sister were both updated that patient's vascular dementia continued to worsen as noted by MRI. Patient carlie is at an increased risk of recurrent TIAs given major CVA in 2020. Moe has history of dysphagia post CVA 2019 that required a feeding tube for a short period. Patient agrees to soft mechanical diet I. Updated family of orthostatic vitals, recommened compression stocks and slow to rise from a sitting or lying position. Primary physician recenlty decreased Losartan 50 mg Qday but sister and patient can not recall new dosage. NO headaches or blurry vision overnight. Negative chest pain or SOB. PT-->NO additional PT needed. Ambulation w/ Walker; pending speech & EEG Exam Vital Signs Temp Pulse Resp BP Pulse Ox O2 Del Method 97.6 F 59 L 17 146/64 H 95 Room Air 02/26/25 11:49 02/26/25 12:00 02/26/25 11:49 02/26/25 11:49 02/26/25 11:49 02/26/25 07:51 Narrative Exam General Appearance: Alert & Oriented X2, well-nourished female who is lying in bed in no acute distress HEENT: Skull symmetrical and atraumatic. Conjunctivae pin and moist. Pupils equal, round, reactive to light and accommodation (PERRL). External ear without lesion or discharge. Straight, nares patient, mucosa pink, no discharge. No thyroid nodule appreciated. No cervical lymphadenopathy. Cardio: Normal Rate and Rhythm with S1 and S2 heart sounds. No murmurs or extra heart sounds auscultated. No bruits on carotid auscultation. No peripheral edema or cyanosis. Lungs: Symmetric with good expansion. Chest and back non-tender. Breath sounds vesicular without crackles, wheezing or rhonchi Abdomen: Non-tender, Non-distended, Normal Reactive Bowel Sounds, NON tender supra-pubic region Neuro: YES Alert, YES cooperative, YES oriented to person, YES place, and NO time. Speech clear but dysarthic. CN grossly intact. No facial droop noted, nasal folds normal, Upper motor strength 5/5 and Lower motor strength 5/5. Sensation intact. Objective Labs 02/26/25 04:20 02/26/25 04:20 Labs: Laboratory Results - last 24 hr 02/25/25 02/25/25 02/26/25 13:10 14:48 04:20 WBC 6.8 RBC 3.99 L Hgb 10.7 L Hct 33.2 L MCV 83 MCH 26.8 MCHC 32.2 RDW Std Deviation 49.2 H Plt Count 287 D Neut % (Auto) 64 Lymph % (Auto) 24 [place] % (Auto) 9 Eos % (Auto) 3 Baso % (Auto) 1 Neut # (Auto) 4.3 Lymph # (Auto) 1.7 [place] # (Auto) 0.6 Eos # (Auto) 0.2 Baso # (Auto) 0.0 Immature Gran # (Auto) 0.01 H Absolute Nucleated RBC 0.00 Immature Gran % 0 Nucleated RBC % 0 Sodium 141 Potassium 4.2 Chloride 107 Carbon Dioxide 24.4 Anion Gap 10 BUN 10 Creatinine 1.1 Estim Creat Clear Calc 40.0 L eGFR 53 L BUN/Creatinine Ratio 9 L Glucose [address] Glu mg/dL 123 Hemoglobin A1c 5.9 Calculated Osmolality 279 Calcium 9.0 Corrected Calcium 9.3 Phosphorus 3.8 Magnesium 1.8 Iron 44 L TIBC 342 Iron Saturation 12 L Unsat Iron Binding 298 H Ferritin 9 Total Bilirubin 0.7 AST 18 ALT 8 L Alkaline Phosphatase 84 Total Protein 6.3 Albumin 3.6 Globulin 2.7 Albumin/Globulin Ratio 1.3 Triglycerides 81 Cholesterol 159 LDL Cholesterol, Calc 79 HDL Cholesterol 64 H Cholesterol/HDL Ratio 2.5 L TSH 2.66 Ur Collection Type Clean Catch Urine Color Colorless A Urine Clarity Clear Urine pH 6.5 Ur Specific [place] 1.020 Urine Protein Negative Urine Glucose (UA) 4+ A Urine Ketones Negative Urine Blood Negative Urine Nitrite Negative Urine Bilirubin Negative Urine Urobilinogen (Auto) Negative Ur Leukocyte Esterase Positive Urine RBC 1 Urine WBC 18 H Ur Squamous Epith Cells 0 Urine Bacteria None ABG Interpretation ABG results: 02/25/25 13:37 ABG pH 7.39 ABG pCO2 45 ABG pO2 79 L ABG HCO3 27 H ABG O2 Saturation 96 ABG Base Excess 2 Quality Measures Quality Measures stroke Suspected type of Stroke: Unknown at this time Tenecteplase given: Reason(s) Tenecteplase not given: Stroke severity too mild (non-disabling) not given Rehab services: PT evaluation ordered and Speech Language Pathology eval ordered VTE Prophylaxis: pharmaceutical Antithrombotic by day 2:: ordered Statin ordered: >75 y/o moderate or high intensity dose Anticoagulation ordered for A- fib or flutter (current or hx): not indicated Advance care planning discussed with:: patient Assessment & Plan Assessment Current Active Medications: Generic Name Dose Route Start Last Admin Trade Name Freq PRN Reason Stop Dose Admin Acetaminophen 650 mg 02/25/25 15:10 Acetaminophen 325 Mg Tablet PO 03/27/25 15:09 Q6H PRN Pain 1-3 or Fever >100.3 Hydrocodone Bitart/Acetaminophen 1 tab 02/25/25 15:10 Hydrocodone/Apap 5/325 Tablet PO 03/02/25 15:09 Q4HR PRN PAIN SCALE 4-6 (Moderate Albuterol 2.5 mg 02/25/25 15:29 Albuterol Rt 2.5 Mg/0.5 Ml Nebu INH 03/27/25 18:59 Q4HRRT PRN shortness of breath Apixaban 5 mg 02/25/25 21:00 02/26/25 08:07 Apixaban 2.5 Mg Tablet PO 03/18/25 20:59 5 mg BID MATT Administration Aspirin 81 mg 02/26/25 09:00 02/26/25 08:07 Aspirin Ec 81 Mg Tabec PO 03/28/25 08:59 81 mg QDAY MATT Administration Atorvastatin Calcium 20 mg 02/25/25 21:00 02/25/25 20:44 Atorvastatin Calcium 20 Mg Tablet PO 03/27/25 20:59 20 mg HS MATT Administration Benzonatate 100 mg 02/26/25 08:56 Benzonatate 100 Mg Capsule PO 03/28/25 08:55 Q8HR PRN COUGH Protocol Dextrose 25 ml 02/25/25 15:26 Dextrose 50%-Water Inj 50 Ml Syringe IV 03/27/25 15:25 Q15MIN PRN BG 50-70 responsive npo pt Dextrose 50 ml 02/25/25 15:26 Dextrose 50%-Water Inj 50 Ml Syringe IV 03/27/25 15:25 Q15MIN PRN BG <50 OR BG <70 & pt unresponsive Docusate Sodium 100 mg 02/25/25 15:10 Docusate Sod 100 Mg Capsule PO 03/27/25 15:09 QDAY PRN CONSTIPATION Protocol Glucagon 1 mg 02/25/25 15:26 Glucagon Inj 1 Mg Vial IM Q15MIN PRN BG <70, and no IV access Sodium Chloride 1,000 mls @ 100 mls/hr 02/25/25 13:00 02/26/25 09:17 Ns IV 03/27/25 12:59 Not Given .Q10H MATT Insulin Human Lispro 0 unit 02/26/25 11:30 02/26/25 11:33 Insulin Lispro (Admelog) 1 Unit/0.01 Ml Unit SC 03/28/25 11:29 Not Given AC [facility] Protocol Losartan Potassium 25 mg 02/26/25 09:00 02/26/25 09:16 Losartan Potassium 25 Mg Tablet PO 03/28/25 08:59 25 mg QDAY MATT Administration Memantine 5 mg 02/25/25 21:00 02/26/25 08:07 Memantine Hcl 5 Mg Tablet PO 03/27/25 20:59 5 mg BID MATT Administration Morphine Sulfate 2 mg 02/25/25 15:10 Morphine Sulf Inj 10 Mg/Ml Vial IVP 03/02/25 15:09 Q4HR PRN PAIN SCALE 7-10 (Severe Ondansetron HCl 4 mg 02/25/25 12:54 Ondansetron Inj 2 Mg/Ml Inj 2 Ml IV 03/27/25 12:53 Q4HR PRN NAUSEA OR VOMITING Pantoprazole Sodium 40 mg 02/25/25 15:15 02/26/25 08:07 Pantoprazole 40 Mg Tablet PO 03/27/25 15:14 40 mg QDAY MATT Administration Sodium Chloride 3 ml 02/25/25 15:29 Sodium Chloride Rt Idalmis 0.9% 3 Ml Nebu INH 03/27/25 15:28 PRN PRN SOLN Plan Patient is a 74 year old female has a past medical history of CVA (2019), dementia, hypertension, diabetes mellitus type 2 [id number], hyperlipidemia, history of DVTs on Eliquis who was admitted on 02/25/2025 for CVA work up. #Vascular Dementia #Orthostatic Hypotension #CVA ruled out Etiology: Given past medical history of CVA in 2019, TIA in 2023, and diabetes mellitus, this puts patient at increased risk of recurrent TIAs as patient has returned to baseline DDx: Seizure can not be ruled out vs syncope given history of bradycardia per patient. Less likely secondary to metabolic causes or VA. Diagnostics: MRI: Negative for acute hemorrhage, mass effect or midline shift. No acute infarct. Very prominent chronic microvascular white matter change, chronic multi-infarct dementia pattern with significant cerebral atrophy. No significant carotid stenosesNo no large vessel cerebral arterial occlusions. Echo: Negative for ASD. Normal LV function and size with an EF of 55 to 60%. Stage I diastolic dysfunction. Mild LVH. CT Head 02/25/2025: Negative Troponin <0.002 Glucose 123 Plan: -Aspirin 81 mg (no Clopidogrel at this time given Eliquis as home medication) -Atorvastatin 20 mg HS -Aspiration Precautions, Head of bed 30 degrees (dyspagia PMH) -Acetaminophen PRN -PT evaluation-->NO additional PT needed. Ambulation w/ Walker & Speech Evaluation (pending) -EEG (pending) -Swallow Screen-->passed #Diabetes Mellitus Type II, non-insulin dependent Patient has a past medical history of diabetes mellitus type II with Metformin on board as a home medication. Diagnostics: A1c 5.9% (February 2025) & Glucose on admission 124 Plan: -Hold Metformin, GFR at 48, please avoid if GFR <30 -Sliding Scale Lispro -Monitor Fasting Blood Glucose -hypoglycemic in place #Hypertension Past medical history of hypertension on Losartan 50 mg-->recently decreased but unsure of new dosage Plan -Losartan 25 mg Qday #History of DVT Continue home medication of Eliquis. Two previous episodes of DVTs. Plan -Eliquis -Compression Device #Dementia Dementia, likely secondary to vascular given past medical history of CVA in 2019 with slow decline in memory since then. Home medication of memantine, patient's sister stated that it was initially prescribed by neurologist. Diagnostics: MRI (08/2024): Negative for acute hemorrhage mass effect or midline shift. No acute infarct. Chronic multi-infarct dementia pattern Plan -Continue home medication of Memantine -Consider Hydroxyzine if patient need at night #Normocytic Anemia Anemia likely secondary to anemia of chronic disease given normal MCV vs blood loss less likely as patient denied blood in stool or urine Plan Iron 44 (L), TIBC 342, Iron Saturation 12%, Unsat Iron Binding 298%, Ferritin 9 Plan -No acute intervention #CKD (?) Possible history of CKD given GFR range from 40s to 60s from previous hospitalizations. CKD likely secondary to Diabetes Mellitus Type 2. Kerenia listed as previous medication . Diagnostics: Microalbumin/Cr Ratio <30 (11/2023) UA Pending Plan -Hold Kerendia #Permissive HTN, Resolved Health Maintenance: Disp: Pt is currently admitted to floors for further management of CVA rule out, awaiting MRI FEN: NPO-->soft mechanically altered type I DVT: Eliquis--Compression Device Code: Full Code - The patient's plan was discussed with attending Dr. Marte and senior residents Dr. Jessica Vasquez MD PGY1 Internal Medicine Attending Provider Attestation/Addendum I have discussed and was present for the essential components of the history, physical examination, diagnosis, and treatment plan with the resident. I agree with the patient's care as documented by the resident and amended herein by me. Baldo Marte DO. Although this document has been carefully reviewed, there may still be some phonetic and other typographical errors. These errors are purely grammatical due to imperfections in the software program and should not be construed in any way to compromise the substance of the patient's medical care during this visit.
--- NOTE | 2025-02-26 14:23 | PC.PT ---
PT eval only. Patient is I with transfers and ambulation with AD.
--- NOTE | 2025-02-26 15:04 | PC.SS ---
Rounding Note: Plan is to conduct stroke work up. Speech evaluation is pending. Neurology consult is pending.
[2025-02-26] MEDS: ATORVASTATIN CALCIUM 20 MG TABLET PO (20:09)
[2025-02-27] VITALS (7 sets, daily range): BP systolic 108–148; BP diastolic 58–71; PULSE 49–86; RESP 12–98; TEMP 36.2–36.8; O2SAT 95–98; BMI 31.4
--- NOTE | 2025-02-27 00:10 | PD.NEUROPROG ---
Documentation for date of: 02/27/25 Exam - Neurology Vital Signs Temp Pulse Resp BP Pulse Ox O2 Del Method 97.3 F 70 18 142/74 H 98 Room Air 02/26/25 20:00 02/26/25 20:00 02/26/25 20:00 02/26/25 20:00 02/26/25 20:00 02/26/25 20:00 Objective Labs 02/26/25 04:20 02/26/25 04:20 Labs: Laboratory Results - last 24 hr 02/26/25 04:20 WBC 6.8 RBC 3.99 L Hgb 10.7 L Hct 33.2 L MCV 83 MCH 26.8 MCHC 32.2 RDW Std Deviation 49.2 H Plt Count 287 D Neut % (Auto) 64 Lymph % (Auto) 24 [place] % (Auto) 9 Eos % (Auto) 3 Baso % (Auto) 1 Neut # (Auto) 4.3 Lymph # (Auto) 1.7 [place] # (Auto) 0.6 Eos # (Auto) 0.2 Baso # (Auto) 0.0 Immature Gran # (Auto) 0.01 H Absolute Nucleated RBC 0.00 Immature Gran % 0 Nucleated RBC % 0 Sodium 141 Potassium 4.2 Chloride 107 Carbon Dioxide 24.4 Anion Gap 10 BUN 10 Creatinine 1.1 Estim Creat Clear Calc 40.0 L eGFR 53 L BUN/Creatinine Ratio 9 L Glucose 76 Calculated Osmolality 279 Calcium 9.0 Corrected Calcium 9.3 Phosphorus 3.8 Magnesium 1.8 Iron 44 L TIBC 342 Iron Saturation 12 L Unsat Iron Binding 298 H Ferritin 9 Total Bilirubin 0.7 AST 18 ALT 8 L Alkaline Phosphatase 84 Total Protein 6.3 Albumin 3.6 Globulin 2.7 Albumin/Globulin Ratio 1.3 Triglycerides 81 Cholesterol 159 LDL Cholesterol, Calc 79 HDL Cholesterol 64 H Cholesterol/HDL Ratio 2.5 L TSH 2.66 ABG Interpretation ABG results: 02/25/25 13:37 ABG pH 7.39 ABG pCO2 45 ABG pO2 79 L ABG HCO3 27 H ABG O2 Saturation 96 ABG Base Excess 2
[2025-02-27 00:15] LABS: Creatinine MALB Rnd Ur 26 mg/dL (30-125); Microalbumin, Random Urine < 3 mg/L (0-300)
[2025-02-27 05:25] LABS: Basophils % (Auto) 0 % (0-2.5); Eosinophils # (Auto) 0.2 Thou/mm3 (0.0-0.5); Eosinophils % (Auto) 4 % (0-10); Hematocrit 33.9 % (36.0-46.0); Hemoglobin 10.5 g/dL (12.0-16.0); Immature Granulocytes % (Auto) 0 % (0-0); Immature Granulocytes Auto 0.03 Thou/mm3 (0.00-0.00); Lymphocytes # (Auto) 1.7 Thou/mm3 (1.0-4.8); Lymphocytes % (Auto) 25 % (10-50); Mean Corpuscular Hemoglobin 26.4 pg (25.0-35.0); Mean Corpuscular Volume 85 fL (80-100); Monocytes # (Auto) 0.7 Thou/mm3 (0.0-0.8); Monocytes % (Auto) 11 % (0-12); Neutrophils % (Auto) 59 % (37-80); Nucleated Red Blood Cell % 0 /100 WBC (0); Platelet Count 332 Thou/mm3 (140-440); RDW Standard Deviation 50.4 fL (36.4-46.3); Red Blood Count 3.97 Miln/mm3 (4.00-5.20); White Blood Count 6.7 Thou/mm3 (3.6-11.0)
[2025-02-27 06:06] LABS: Albumin, Serum 3.6 gm/dL (3.4-4.8); Albumin/Globulin Ratio 1.3 (1.2-2.2); Alkaline Phosphatase 84 U/L (46-116); Anion Gap 8 (7-16); Aspartate Amino Transferase 18 U/L (0-34); BUN/Creatinine Ratio 13 Ratio (12-20); Bilirubin,Total 0.7 mg/dL (0.3-1.2); Blood Urea Nitrogen 14 mg/dL (9-23); Calcium 8.9 mg/dL (8.3-10.6); Calcium (Corrected) 9.2 mg/dL (8.5-10.1); Carbon Dioxide 26.8 mMol/L (20.0-31.0); Chloride 107 mMol/L (98-107); Creatinine (Component) 1.1 mg/dL (0.6-1.3); Globulin 2.7 gm/dL (2.3-3.5); Glucose 79 mg/dL (74-106); Magnesium 1.8 mg/dL (1.6-2.6); Osmolality,Calculated 282 (275-295); Phosphorous 3.1 mg/dL (2.4-5.1); Sodium 142 mMol/L (136-145); Total Protein 6.3 gm/dL (5.7-8.2); eGFR 53 See Note
[2025-02-27 06:10] LABS: Alanine Aminotransferase 8 U/L (10-49)
[2025-02-27] MEDS: SODIUM CHLORIDE 0.9% 1000 ML 1,000 ML 100 ML IV (06:23)
[2025-02-27] MEDS: LOSARTAN POTASSIUM 25 MG TABLET PO (08:24)
[2025-02-27] MEDS: MEMANTINE HCL 5 MG TABLET PO (08:25)
[2025-02-27] MEDS: ASPIRIN EC 81 MG TABEC PO (08:25)
[2025-02-27] MEDS: APIXABAN 2.5 MG TABLET 5 MG PO (08:25)
[2025-02-27] MEDS: Magnesium Sulfate 2 GM Ivpb 2 GM/50 ML BAG IV (08:25)
[2025-02-27] MEDS: PANTOPRAZOLE 40 MG TABLET PO (08:25)
--- NOTE | 2025-02-27 12:14 | ESDS_ITS ---
Planned Discharge Date 02/27/25 DS: Providers Provider Date of admission: 02/25/25 15:10 Primary care physician: Gurwinder Nicole Admitting Provider: Marcos Marte DO Attending Provider on Admission: Marcos Marte DO Consults: 02/25/25 12:54 Consult to Neurology / Tele-Neurology Routine Comment: Consulting Provider: [facility] 02/25/25 15:24 Referral Physical Therapy Stat Comment: Physician Instructions: Instructions: CVA rule out; patient uses a cane at baseline 02/25/25 15:25 Referral Speech Therapy Urgent Comment: CVA rule out 02/25/25 15:31 Consult to Cardiology Routine Comment: Consulting Provider: Marlon Paz 02/25/25 15:32 Consult to Neurology / Tele-Neurology Routine Comment: Consulting Provider: Fernando Eason Attending Provider on DC: Oly Vasquez MD Discharging Provider: Oly Vasquez MD DS: Diagnosis Problem List Completed Was Problem List Reviewed/Reconciled?: Yes Hospital Course Hospital Course Hospital course: Summary: Patient is a 74 year old female has a past medical history of CVA (2019), dementia, hypertension, diabetes mellitus type 2 [id number]-hjilumzti, hyperlipidemia, 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 ER Course: Vitals on admisison, BP 154/76, HR 62, RR 18,T 98.1 and saturating well on room air. EKG noted for sinus rhythm. WBC 7.9 (within normal limits), Hgb 11.3, Hct 34.7. 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 Patient was examined in the emergency room and worked up for stroke with a teleneuro consult which patient was not a candidate for tPA. NIHSS score 4. In-house neurology consulted, Dr. Eason. Patient's home medication of atorvastatin and aspirin continued. Continued Eliquis given DVT history. CT head was negative for acute hemorrhage, mass effect or midline shift. Head neck CTA showed no large vessel arterial occlusion. Echo EF of 55-60% Stage I diastolic dysfucntion (02/25/2025). EEG normal. Orthostatic vitals positive. Given positive orthostatic vitals hold Losartan until you follow up with PCP. Continue Kerendia. Please get up slowly form lying/sitting position to standing. Please wear compression stockings. Stroke ruled out. Changes noted on MRI are chornic from dementia. Instructions: -Please hold Losartan, your blood pressure medication, until you follow up with your primary care provider given your orthostatic vitasl (drops in blood pressure) -Please continue Kerendia, 10 mg PQday, for your blood pressure -Stop Metformin 500 mg orally once a day until you follow up with your primary care provider and confirm that you have stopped this medication. -Please continue the rest of your home medication -Please follow up with your primary care provider within one week of discharge and follow with your parachutist/combatant diver qualified, Dr. Paz, within one week of discharge. -If your symptoms worsen,please seek immediate medical attention and return to your nearest emergency room -If you do not have a primary care provider, [facility] [address] [place] [address] [address], [place] [address], #Vascular Dementia #Orthostatic Hypotension #CVA ruled out #Diabetes Mellitus Type II, non-insulin dependent #Hypertension #History of DVT #Dementia #Normocytic Anemia #CKD Stable to Discharge home w/ home health - The patient's plan was discussed with attending Dr. Rosanna Vasquez MD PGY1 Internal Medicine Time Spent with Patient Time attestation: Total time spent providing and/or coordinating discharge services: at least 30 minutes of care and coordination Exam Vital Signs Temp Pulse Resp BP Pulse Ox O2 Del Method 97.3 F 82 16 148/71 H 95 Room Air 04/05/25 07:25 02/27/25 12:00 02/27/25 07:25 02/27/25 08:24 02/27/25 07:25 02/27/25 07:25 Narrative Exam General Appearance: Alert & Oriented X2, well-nourished female who is lying in bed in no acute distress HEENT: Skull symmetrical and atraumatic. Conjunctivae pin and moist. Pupils equal, round, reactive to light and accommodation (PERRL). External ear without lesion or discharge. Straight, nares patient, mucosa pink, no discharge. No thyroid nodule appreciated. No cervical lymphadenopathy. Cardio: Normal Rate and Rhythm with S1 and S2 heart sounds. No murmurs or extra heart sounds auscultated. No bruits on carotid auscultation. No peripheral edema or cyanosis. Lungs: Symmetric with good expansion. Chest and back non-tender. Breath sounds vesicular without crackles, wheezing or rhonchi Abdomen: Non-tender, Non-distended, Normal Reactive Bowel Sounds, NON tender supra-pubic region Neuro: YES Alert, YES cooperative, YES oriented to person, YES place, and NO time. Speech clear but dysarthic. CN grossly intact. No facial droop noted, nasal folds normal, Upper motor strength 5/5 and Lower motor strength 5/5. Sensation intact. Discharge Plan Plan Patient Disposition: HOME (Self Care) Care Plan Goals: Instructions: -Please hold Losartan, your blood pressure medication, until you follow up with your primary care provider given your orthostatic vitasl (drops in blood pressure) -Please continue Kerendia, 10 mg PQday, for your blood pressure -Stop Metformin 500 mg orally once a day until you follow up with your primary care provider and confirm that you have stopped this medication. -Please continue the rest of your home medication -Please follow up with your primary care provider within one week of discharge and follow with your parachutist/combatant diver qualified, Dr. Paz, within one week of discharge. -If your symptoms worsen,please seek immediate medical attention and return to your nearest emergency room -If you do not have a primary care provider, [facility] [address], [place] [address], Prescriptions/Referrals Prescriptions/Med Rec: Continued montelukast [Singulair] 10 mg Tablet 10 mg PO QPM albuterol sulfate 90 mcg/actuation HFA aerosol inhaler 2 inh INHALATION Q4HR PRN (Reason: sob) Eliquis 5 mg Tablet 5 mg PO BID Kerendia 10 mg Tablet 10 mg PO QDAY aspirin 81 mg Tablet,Delayed Release (Dr/Ec) 81 mg PO QDAY Qty: 30 0RF atorvastatin 20 mg Tablet 20 mg PO QDAY 30 Days Qty: 0 0RF celecoxib [Celebrex] 200 mg capsule 200 mg PO BID cholecalciferol (vitamin D3) [D3 DOTS] 50 mcg (2,000 unit) tablet 50 mcg PO QDAY Veltassa 25.2 gram powder in packet 25.2 g PO BID diphenoxylate-atropine 2.5-0.025 mg Tablet 1 tab PO QID PRN (Reason: Diarrhea) famotidine 20 mg Tablet 20 mg PO QDAY hydroxyzine HCl 25 mg Tablet 25 mg PO HS memantine 5 mg Tablet 5 mg PO BID folic acid 1 mg Tablet 1 mg PO QDAY Gemtesa 75 mg Tablet 75 mg PO QDAY Discontinued metformin 500 mg Tablet Extended Release 24hr 500 mg PO QPM losartan 50 mg Tablet 50 mg PO QDAY Referrals: Marlon Paz MD [Physician] - Gurwinder Shelton [Primary Care Provider] - Patient/Caregiver Discharge Instructions Education Materials: Dementia Caregiver Tips, Orthostatic Hypotension Print Language: Barbadian Stand Alone Forms: Dorina Award Info., Patient Portal Info Letter Discharge Order Discharge Orders: Discharge (Routine); Ordered 02/27/25 Ordered By: Marcos Marte Quality Discharge Quality Measures VTE prophylaxis Attestestation Attestation I have discussed and was present for the essential components of the discharge h istory, physical examination, diagnosis, and discharge treatment plan with the resident. I agree with the patient's discharge care as documented by the resident and amended herein by me. Baldo Marte DO. The patient understood all discharge instructions, all questions were answered satisfactorily. The patient was instructed to return to the Emergency Department is symptoms worsened or persisted. Although this document has been carefully reviewed, there may still be some phonetic and other typographical errors. These errors are purely grammatical due to imperfections in the software program and should not be construed in any way to compromise the substance of the patient's medical care during this visit.
--- NOTE | 2025-02-27 13:31 | ESPR_ITS ---
Documentation for date of: 02/27/25 Subjective Subjective Interval history: No acute events overnight.?Patient seen and examined at bedside this AM.?Patient is feeling very well. She denies any sort of weakness or new symptoms overnight. She denies chest pain, shortness of breath, palpitations, or swelling. Labs and vitals were reviewed and were stable.?No further complaints at this time. Patient will follow up with Dr. Paz in Cardiology clinic. Review of systems otherwise negative except what is mentioned above. Exam Vital Signs Temp Pulse Resp BP Pulse Ox O2 Del Method 97.3 F 55 L 18 138/70 H 98 Room Air 02/27/25 12:00 02/27/25 13:19 02/27/25 13:19 02/27/25 12:00 02/27/25 13:19 02/27/25 12:00 Narrative Exam Physical Exam General: Awake and in no acute distress. Pleasant, answering questions appropriately, non-toxic appearing. Mild dysarthria present. Comprehends simple questions, answers yes and no and speaks in short phrases, unable to answer complex questions. HEENT: Normocephalic, atraumatic, mucous membranes moist. Heart: Regular rate and rhythm, no murmurs. Lungs: Clear to auscultation with no wheezing or crackles. Abdomen: Soft, obese, nondistended, nontender, positive bowel sounds. ?No guarding or rebound tenderness. Neuro: Alert and oriented x3, moving all 4 extremities, no focal neurologic deficit. Extremities: No edema. Skin: No rash or ecchymoses. Objective Labs 02/27/25 04:22 02/27/25 04:22 Labs: Laboratory Results - last 24 hr 02/26/25 02/27/25 23:20 04:22 WBC 6.7 RBC 3.97 L Hgb 10.5 L Hct 33.9 L MCV 85 MCH 26.4 MCHC 31.0 RDW Std Deviation 50.4 H Plt Count 332 D Neut % (Auto) 59 Lymph % (Auto) 25 [place] % (Auto) 11 Eos % (Auto) 4 Baso % (Auto) 0 Neut # (Auto) 4.0 Lymph # (Auto) 1.7 [place] # (Auto) 0.7 Eos # (Auto) 0.2 Baso # (Auto) 0.0 Immature Gran # (Auto) 0.03 H Absolute Nucleated RBC 0.00 Immature Gran % 0 Nucleated RBC % 0 Sodium 142 Potassium 4.0 Chloride 107 Carbon Dioxide 26.8 Anion Gap 8 BUN 14 Creatinine 1.1 Estim Creat Clear Calc 40.0 L eGFR 53 L BUN/Creatinine Ratio 13 Glucose 79 Calculated Osmolality 282 Calcium 8.9 Corrected Calcium 9.2 Phosphorus 3.1 Magnesium 1.8 Total Bilirubin 0.7 AST 18 ALT 8 L Alkaline Phosphatase 84 Total Protein 6.3 Albumin 3.6 Globulin 2.7 Albumin/Globulin Ratio 1.3 Ur Random Microalbumin < 3 U Creat (Microalbumin) 26 L Microalb/Creat Ratio ABG Interpretation ABG results: 02/25/25 13:37 ABG pH 7.39 ABG pCO2 45 ABG pO2 79 L ABG HCO3 27 H ABG O2 Saturation 96 ABG Base Excess 2 Quality Measures Quality Measures stroke Suspected type of Stroke: Unknown at this time Tenecteplase given: Reason(s) Tenecteplase not given: Stroke severity too mild (non-disabling) not given Rehab services: PT evaluation ordered and Speech Language Pathology eval ordered VTE Prophylaxis: pharmaceutical Antithrombotic by day 2:: not indicated (describe) Statin ordered: <75 y/o high intensity dose Anticoagulation ordered for A-fib or flutter (current or hx): ordered Advance care planning discussed with:: patient Assessment & Plan Assessment Current Active Medications: Generic Name Dose Route Start Last Admin Trade Name Freq PRN Reason Stop Dose Admin Acetaminophen 650 mg 02/25/25 15:10 Acetaminophen 325 Mg Tablet PO 03/27/25 15:09 Q6H PRN Pain 1-3 or Fever >100.3 Hydrocodone Bitart/Acetaminophen 1 tab 02/25/25 15:10 Hydrocodone/Apap 5/325 Tablet PO 03/02/25 15:09 Q4HR PRN PAIN SCALE 4-6 (Moderate Albuterol 2.5 mg 02/25/25 15:29 Albuterol Rt 2.5 Mg/0.5 Ml Nebu INH 03/27/25 18:59 Q4HRRT PRN shortness of breath Apixaban 5 mg 02/25/25 21:00 02/27/25 08:25 Apixaban 2.5 Mg Tablet PO 03/18/25 20:59 5 mg BID MATT Administration Aspirin 81 mg 02/26/25 09:00 02/27/25 08:25 Aspirin Ec 81 Mg Tabec PO 03/28/25 08:59 81 mg QDAY MATT Administration Atorvastatin Calcium 20 mg 02/25/25 21:00 02/26/25 20:09 Atorvastatin Calcium 20 Mg Tablet PO 03/27/25 20:59 20 mg HS MATT Administration Benzonatate 100 mg 02/26/25 08:56 Benzonatate 100 Mg Capsule PO 03/28/25 08:55 Q8HR PRN COUGH Protocol Dextrose 25 ml 02/25/25 15:26 Dextrose 50%-Water Inj 50 Ml Syringe IV 03/27/25 15:25 Q15MIN PRN BG 50-70 responsive npo pt Dextrose 50 ml 02/25/25 15:26 Dextrose 50%-Water Inj 50 Ml Syringe IV 03/27/25 15:25 Q15MIN PRN BG <50 OR BG <70 & pt unresponsive Docusate Sodium 100 mg 02/25/25 15:10 Docusate Sod 100 Mg Capsule PO 03/27/25 15:09 QDAY PRN CONSTIPATION Protocol Glucagon 1 mg 02/25/25 15:26 Glucagon Inj 1 Mg Vial IM Q15MIN PRN BG <70, and no IV access Sodium Chloride 1,000 mls @ 100 mls/hr 02/25/25 13:00 02/27/25 06:23 Ns IV 03/27/25 12:59 100 mls/hr .Q10H MATT Administration Insulin Human Lispro 0 unit 02/26/25 11:30 02/27/25 12:02 Insulin Lispro (Admelog) 1 Unit/0.01 Ml Unit SC 03/28/25 11:29 Not Given AC MATT Protocol Losartan Potassium 25 mg 02/26/25 09:00 02/27/25 08:24 Losartan Potassium 25 Mg Tablet PO 03/28/25 08:59 25 mg QDAY MATT Administration Memantine 5 mg 02/25/25 21:00 02/27/25 08:25 Memantine Hcl 5 Mg Tablet PO 03/27/25 20:59 5 mg BID MATT Administration Morphine Sulfate 2 mg 02/25/25 15:10 Morphine Sulf Inj 10 Mg/Ml Vial IVP 03/02/25 15:09 Q4HR PRN PAIN SCALE 7-10 (Severe Ondansetron HCl 4 mg 02/25/25 12:54 Ondansetron Inj 2 Mg/Ml Inj 2 Ml IV 03/27/25 12:53 Q4HR PRN NAUSEA OR VOMITING Pantoprazole Sodium 40 mg 02/25/25 15:15 02/27/25 08:25 Pantoprazole 40 Mg Tablet PO 03/27/25 15:14 40 mg QDAY MATT Administration Sodium Chloride 3 ml 02/25/25 15:29 Sodium Chloride Rt Idalmis 0.9% 3 Ml Nebu INH 03/27/25 15:28 PRN PRN SOLN Plan 74-year-old female with past medical history of dementia, CVAs and TIAs since 2019, residual speech impairment, non-insulin dependent type 2 diabetes, hyperlipidemia, DVT (on Eliquis), [place], and GERD, who was brought in by ambulance to the ED on 02/24/2025 due to episode of weakness 02/25/2025 at approximately 12:20 pm. She was subsequently admitted for stroke rule out. #Episode of acute generalized weakness #Acute ischemic stroke to be ruled out Patient had episode of generalized weakness and non-responsiveness to verbal prompting lasting only a few minutes. Patient conscious during full episode, back to baseline by the time she was taken across the street to the ED. Given clinical presentation and lack of focal neurologic findings at any point during the episode, less likely to be stroke or even TIA. Other etiologies of sudden onset of weakness includes syncopal episode, symptomatic bradycardia, arrhythmia, musculoskeletal weakness, orthostasis, psychologic etiologies. A1c on admission 5.9 Troponin was negative. 02/25/2025 Transthoracic echo showed bubble study negative without any evidence of any PFO or ASD. Normal LV function and size with an EF of 55 to 60%. Stage I diastolic dysfunction. Mild LVH. Normal RV size and function with normal RVSP. Mild TR. Mild LA dilatation. Mild MR and mild MAC. Mild to moderate aortic valve sclerosis without stenosis. MRI brain showed no acute infarcts, severe cortical atrophy. Lipid panel showed TC 159, TG 81, LDL 79, HDL 64. TSH normal at 2.66. -Continue aspirin 81 mg qday -Continue atorvastatin #Bradycardia Patient with history of possible bradycardia. Seen by Dr. Paz outpatient. Recently had stress testing done which was normal. EKG on admission showed sinus rhythm with a rate of 62. Troponin negative. -Monitor for symptoms -Avoid beta-blocking or rate slowing agents #History of DVT Known history of DVT. Formerly on Xarelto but was switched to Eliquis. -Continue Eliquis 5 mg BID #History of hypertension On admission BP is 156/76. Patient takes BP medication which is not remembered at this time. -Okay with holding losartan due to orthostatic vitals Rest of conditions to continue current management per primary team: #History of normocytic anemia #History of dementia #History of non-insulin dependent type 2 diabetes Patient was discussed with the Cardiology attending, Dr. Paz. Thank you for allowing us to participate in the care of this patient. Niecy Prescott, PGY-2 Attending Provider Attestation/Addendum I have personally seen and examined the patient separately on the above date of service and discussed the plan of care with the resident. I reviewed the resident Dr. Niecy Prescott consultation progress note and agree with the resident findings and plan in the note above and have also edited the documentation to reflect my findings and plan. Marlon Paz M.D. Interventional Cardiology
--- NOTE | 2025-02-27 14:37 | PC.SS ---
Addendum entered by Jennifer Pugh 02/27/25 14:45: Shoe Repairer Apprentice (SW) Jennifer informed by [employer] that patient was requesting a BSC. SW will place order. SW informed patient of the process for ordering DME. SW also provided a list of DME vendors in [facility], in case the BSC is not approved by patient's insurance. Original Note: Bedside Commode Patient is physically incapable of utilizing regular toilet facilities because of her diagnosis, TIA, CVA and vascular dementia, which confines the patient to a single room. Patient is confined to a single level, and there is no toilet on that level; patient cannot access the toilet facilities in a timely manner due to lack of ambulation.
--- NOTE | 2025-02-27 14:39 | PC.SS ---
Bedside Commode Patient is physically incapable of utilizing regular toilet facilities because of her diagnosis: TIA, CVA, and vascular dementia, which confines the patient to a single room. Patient is confined to a single level, and there is no toilet on that level; patient cannot access the toilet facilities in a timely manner due to lack of ambulation.
== END 2025-02-27 14:52 | disposition home or self-care (01) | DRG 884 ==
LOC: SERX 15:02 → SERHOLD 02-26 06:06 → S3NX 02-26 06:06
PROVIDERS: Admitting Provider Student in an Organized Health Care Education/Training Program; Emergency Provider Family Medicine; PCP Physician Assistant; Visit Provider Student in an Organized Health Care Education/Training Program
DX: F01.A0 Vascular dementia, mild, without behavioral disturbance, psychotic disturbance, mood disturbance, and anxiety (principal); I95.1 Orthostatic hypotension; N18.9 Chronic kidney disease, unspecified; E11.22 Type 2 diabetes mellitus with diabetic chronic kidney disease; I12.9 Hypertensive chronic kidney disease with stage 1 through stage 4 chronic kidney disease, or unspecified chronic kidney disease; Z86.718 Personal history of other venous thrombosis and embolism
CPT/HCPCS: 36415; 36600; 70450; 70496; 70498; 70544; 80053; 80061; 81001; 82043; 82570; 82728; 82803; 83036; 83540; 83550; 83735; 84100; 84443; 84484; 85025; 85610; 85730; 92610; 93005; 93225; 93306; 94664; 95816; 97162; 99291; A4649; J3475; J7030; Q9967; A9270

== ENCOUNTER 2025-03-15 13:42 | Emergency (ER) | payer MEDICARE, MEDICAID, SELFPAY ==
--- NOTE | 2025-03-15 13:48 | EKG_ITS ---
[facility] Test Date: 2025-03-15 Pat Name: JOY IBRAHIM Department: Room: - Gender: Female Neurourologist: : 1950 Requested By: Glenn Rowe Order Number: [id number] Reading MD: Glenn Rowe Measurements Intervals [place] Rate: 69 P: 79 ND: 206 QRS: 5 QRSD: 98 T: 45 QT: 413 QTc: 443 Interpretive Statements SINUS RHYTHM Compared to ECG 02/25/2025 13:51:41 Sinus arrhythmia no longer present /store/S0/[id number]
--- NOTE | 2025-03-15 13:48 | PD.EDNEURO ---
Neuro Symptoms Deficit-RME/HPI General Stated Complaint: WEAKNESS WITH CONFUSION Time Seen by Provider: 03/15/25 13:48 Arrival date/time: 03/15/25 13:42 Limitations: no limitations RME / HPI RME / HPI Narrative: DR. NAVARRO MAIN ED EVALUATION: 74 year old female presents to the Emergency Department [facility] with complaints of weakness and unsteady gait. Patient was at the [employer] with her sister when she began to feel unsteady, weak, and confused not really understanding her sister. Patient recently had a CVA 3 weeks ago with left-sided deficits per EMS. Patient has aphasia. Blood glucose was normal, 153, per EMS. No other symptoms reported at this time. Right hand dominant. PMHx: CVA, TIA, hypertension, diabetes, h/o DVT, hyperlipidemia. Social Hx: No tobacco, alcohol, or substance use. Related Data Home Medications ?Medication ?Instructions ?Recorded ?Confirmed montelukast 10 mg tablet 10 mg PO QPM 02/20/18 02/27/25 (Singulair) Held on 02/27/25. Instructions: Doctor's Order diphenoxylate-atropine 2.5 1 tab PO QID PRN Diarrhea 08/27/23 02/26/25 mg-0.025 mg tablet famotidine 20 mg tablet 20 mg PO QDAY 08/27/23 02/26/25 folic acid 1 mg tablet 1 mg PO QDAY 08/27/23 02/26/25 hydroxyzine HCl 25 mg tablet 25 mg PO HS 08/27/23 02/26/25 memantine 5 mg tablet 5 mg PO BID 08/27/23 02/26/25 vibegron 75 mg tablet (Gemtesa) 75 mg PO QDAY 08/27/23 02/26/25 albuterol sulfate 90 mcg/actuation 2 inh inhalation Q4HR PRN sob 09/06/24 02/27/25 aerosol inhaler Held on 02/27/25. Instructions: Doctor's Order apixaban 5 mg tablet (Eliquis) 5 mg PO BID 09/06/24 02/26/25 finerenone 10 mg tablet (Kerendia) 10 mg PO QDAY 09/06/24 02/26/25 celecoxib 200 mg capsule (Celebrex) 200 mg PO BID 02/26/25 02/26/25 cholecalciferol (vitamin D3) 50 50 mcg PO QDAY 02/26/25 02/26/25 mcg (2,000 unit) tablet (D3 DOTS) patiromer calcium sorbitex 25.2 25.2 g PO BID 02/26/25 02/26/25 gram oral powder packet (Veltassa) Previous Rx's ?Medication ?Instructions ?Recorded aspirin 81 mg tablet,delayed 81 mg PO QDAY #30 tabs 09/08/24 release Held on 02/27/25. Instructions: Doctor's Order atorvastatin 20 mg tablet 20 mg PO QDAY 30 days #0 tabs 09/08/24 Allergies Allergy/AdvReac Type Severity Reaction Status Date / Time No Known Allergies Allergy Verified 05/24/23 14:01 Review of Systems Review of Systems Systems Reviewed: All systems reviewed, normal except as documented Narrative Review of Systems: GEN: No fever, no chills, no weight loss EYES: No discharge, no visual changes, no pain HEENT: No ear pain, no congestion, no sore throat PULM: No shortness of breath, no cough, no congestion CV: No chest pain, no dyspnea on exertion, no palpitations GI: No nausea, no vomiting, no diarrhea, no pain, no constipation : No frequency, no urgency and no dysuria MUSC/SKEL: No joint pain, no back pain SKIN: No rash PSYCH: No hallucinations, no depression HEME/LYMPH: No easy bleeding or bruising tendencies NEURO: + weakness/ unsteady gait (see HPI), no headache, + AMS (see HPI) Past Medical History Past Medical History NEUROLOGIC: Positive Neurological Disorders and Cerebrovascular Accident CARDIAC: Positive Cardiac Disorders, Hypercholesterolemia, Deep Vein Thrombosis and Hypertension RESPIRATORY: Positive Chronic Obstructive Pulmonary Disease (COPD) and Bronchitis GASTROINTESTINAL: Positive Gastrointestinal Disorders and Gastroesophageal Reflux Disease MUSCULOSKELETAL: Positive Musculoskeletal Disorders and Arthritis ENDOCRINE: Positive Endocrine Disorders and Diabetes Mellitus Type 2 OTHER HISTORY: Positive Hospitalization, Falls and Blood Transfusions Social History SMOKING STATUS: Never smoker SUBSTANCE USE: does not use ALCOHOL: Never ED Exam General Limitations: Present no limitations General appearance: Present alert and in no apparent distress Head Head exam: Present atraumatic, normocephalic and normal inspection Eye Eye exam: Present normal appearance, PERRL and EOMI ENT ENT exam: Present normal exam, normal oropharynx and mucous membranes moist Neck Neck exam: Present normal inspection, full ROM and trachea midline Chest Chest inspection: Present normal inspection and symmetric chest wall rise Respiratory Respiratory exam: Present normal lung sounds bilaterally Cardiovascular Cardiovascular exam: Present regular rate, normal rhythm and normal heart sounds Abdominal Exam Abdominal exam: Present soft and normal bowel sounds Extremities Exam Extremities exam: Present normal inspection and full ROM Back Exam Back exam: Present normal inspection and full ROM Neurological Exam Neurological exam: Present alert, oriented X3 and other (RUE graphesthesia exam failed. Right hand dominant.) Expanded Neurological Exam Patient oriented to: Present person, place and time Speech: Present receptive aphasia and expressive aphasia Cranial nerves: Normal: EOM function (II, III, IV, ), facial sensation (V), facial palsy (VII), gag reflex (IX) and tongue deviation (XII) (Tongue straight) Cerebellar function: Normal: heel to hinojosa Motor strength - LUE: 5/5 Motor strength - RUE: 4/5 Motor strength - LLE: 5/5 Motor strength - RLE: 5/5 Upper motor neuron exam: Normal: Babinski sign Spinal cord function: Present intact bulbocavernosus reflex Coma scale eye opening: spontaneous Coma scale motor response: obeys commands Coma scale verbal response: oriented Coma scale total: 15 Psychiatric Psychiatric exam: Present normal affect and normal mood Skin Skin exam: Present warm, dry, intact and normal color Course Quality Measures none Orders Category Date Time Status Bedside Blood Glucose NOW Care 03/15/25 13:48 Active Life Skills Trainer NOW Care 03/15/25 13:48 Active Continuous Pulse Oximetry NOW Care 03/15/25 13:48 Active EKG (ED ONLY) *Do not use* NOW Care 03/15/25 13:48 Completed In and Out Catheter NEEDED Care 03/15/25 13:48 Active Insert IV NOW Care 03/15/25 13:48 Active NIH Stroke Scale now Care 03/15/25 13:48 Active NPO NOW Care 03/15/25 13:48 Active Neuro Check Q15MIN Care 03/15/25 13:49 Active Nurse Swallow Screen x1 Care 03/15/25 13:48 Active Consult to Neurology / Tele-Neurology Routine Cons 03/15/25 13:[address] angio stroke protocol Stat Exams 03/15/25 13:[address] stroke protocol Stat Exams 03/15/25 13:48 Completed EKG (ED Only) Stat Exams 03/15/25 13:48 Draft CBC Stat Lab 03/15/25 14:10 Completed Comprehensive Metabolic Panel Stat Lab 03/15/25 14:10 Completed Magnesium Stat Lab 03/15/25 14:10 Completed Partial Thromboplastin Time Stat Lab 03/15/25 14:10 Completed Prothrombin Time with INR Stat Lab 03/15/25 14:10 Completed Troponin I Stat Lab 03/15/25 14:10 Completed Urinalysis Stat Lab 03/15/25 13:48 Ordered Aspirin Supp Med 03/15/25 13:48 Discontinued 300 mg MS X1 ONE Ondansetron Inj [Zofran Inj] Med 03/15/25 13:48 Active 4 mg IV Q4HR PRN Sodium Chloride 0.9% 1000 ml [Ns] 1,000 ml Med 03/15/25 14:00 Active IV Q10H Oxygen Delivery NOW RT 03/15/25 13:48 Active Reevaluation(s) Reevaluation #1: Patient feels better. She walking and talking normally. Time: 15:40 Reevaluation #2: Patient remains clinically stable throughout the emergency department visit. Re-assessment at the time of disposition demonstrates that the patient is in no acute distress. We reviewed all the results, analysis, and treatment plans. Patient is amenable to discharge. Strict return precautions were outlined. Patient was discharged in stable condition. Time: 17:30 Vital Signs Vital signs: Vital Signs Temperature 99.7 F 03/15/25 14:30 Pulse Rate 69 03/15/25 14:30 Respiratory Rate 18 03/15/25 14:30 Blood Pressure 175/71 H 03/15/25 14:30 Pulse Oximetry (%) 100 03/15/25 14:30 Oxygen Delivery Method Room Air 03/15/25 14:30 Neuro Symptoms / Deficit MDM Narrative MDM Narrative:: Araseli Fernandez am scribing for and in the presence of Dr. Navarro. Patient data External records reviewed:: EMS form Clinical information provided by:: patient, EMS and family Social determinants that could affect healthcare access:: none Patient has the following chronic illnesses:: CVA, TIA, hypertension, diabetes, h/o DVT, hyperlipidemia. How is presenting disease/condition affected by chronic disease/condition?: exacerbated by Evaluation data The following diagnostics were reviewed and interpreted by me:: lab results, radiology exam(s) and EKG tracing(s) Lab and/or radiology exams considered but not ordered:: none Interpretation Summary: EKG#1: EKG at 1423 hours. Interpreted by me: sinus rhythm, rate 69, no acute changes, MS interval 206 ms, QRS duration 98 ms, QT/QTc 413/443, P-R-T axis 79, 5, 45. RADIOLOGY Procedure(s): CT stroke protocol Accession Number(s): [id number] cc: Glenn Navarro MD; Esequiel Barros MD~ Examination: CT brain head without contrast. 2-D sagittal coronal reconstructions Date and time of exam:March 15, 2025 1352 hours Comparison February 25, 2025 INDICATIONS: Stroke alert, onset focal neurologic deficit, slurred speech, left-sided body deficit CTDI: vol (mGy):46.3 DLP: (mGycm):884 Technique: Multiple CT axial sections of the brain have been obtained, 5 mm slice thickness. Contrast has not been administered. 2-D sagittal, coronal reconstructions have been obtained Low dose protocols were performed. One or more of the following dose reduction techniques were used; automated exposure control, adjustment of the mA and/or KV according to patient size, use of iterative reconstruction technique. Findings: No significant ventricular enlargement. Intra-axial or extra-axial hemorrhage density is not seen. No mass effect or midline shift Basal cisterns are not remarkable. Fourth ventricle is midline. Cranial vault intact. Again noted encephalomalacia left occipital lobe Prominent atrophy Impression: No interval acute hemorrhage, mass effect or midline shift Dictated By: Esequiel Barros MD Procedure(s): CT angio stroke protocol Accession Number(s): [id number] cc: Glenn Navarro MD; Esequiel Barros MD; NO PRIMARY/FAMILY,PHYSICIAN~ Examination: CTA carotids with intravenous contrast CTA brain, head with intravenous contrast. 2-D sagittal, coronal reconstructions. 3-D reconstructions. Exam date and time: March 15, 2025 1357 hours INDICATIONS: Stroke alert, onset slurred speech left-sided body deficits today CTDI: vol (mGy) 36.3 DLP: (mGycm) 410 Technique: Multiple CTA axial brain, head carotid images post intravenous contrast injection 75 cc, [id number]. 2-D sagittal, coronal reconstructions. 3-D reconstructions, 3-D post processing including vascular maximum intensity projection images. Low dose protocols were performed. One or more of the following dose reduction techniques were used; automated exposure control, adjustment of the mA and/or KV according to patient size, use of iterative reconstruction technique. Findings: No significant common carotid carotid bifurcation or internal carotid artery stenoses Mildly dominant right vertebral artery no neck vertebral artery significant stenoses No cerebral large vessel arterial occlusions or thrombus or dissection IMPRESSION: No significant neck arterial stenoses No cerebral large vessel arterial occlusions or thrombus Dictated By: Esequiel Barros MD Medications / Prescriptions Medications or Prescriptions considered but not ordered:: none Medication administrations:: Medication Administration History Sodium Chloride (Ns) 1,000 mls @ 50 mls/hr IV Q10H [facility] Stop: 04/14/25 13:59 Ondansetron HCl (Ondansetron Inj 2 Mg/Ml Inj 2 Ml) 4 mg IV Q4HR PRN PRN Reason: NAUSEA OR VOMITING Stop: 04/14/25 13:47 Discontinued Medications Aspirin (Aspirin 300 Mg Supp) 300 mg MS X1 ONE Stop: 03/15/25 13:49 see above if any Consultations Consultation(s) initiated? (list below): Yes Consultation #1 (Physician, Specialty, Details): Discussed test HPI, PMHx, lab, radiology results and/or management with teleneuro. They do not think this is a stroke and recommend discharge. Time: 14:33 Diagnosis Neuro Differential Diagnosis: subarachnoid hemorrhage, cerebrovascular accident and transient cerebral ischemia Most likely diagnosis given after review of the tests above:: Generalized weakness due to exertion. Admission Indicated Admission indicated?: not indicated Admission Request Was there a request for admission?: No Disposition Plan Disposition Plan: Discharge Discharge Attestation Discharge Attestation: The patient and all family members were given an opportunity to ask questions and understood the discharge instructions. Discharge instructions specifically effects, indications for sooner follow up or return to the emergency department, and the expected course of current diagnosis. Patient condition: Stable Discharge Plan Plan Patient Disposition: HOME (Self Care) Prescriptions/Referrals Prescriptions/Med Rec: No Action montelukast [Singulair] 10 mg Tablet 10 mg PO QPM albuterol sulfate 90 mcg/actuation HFA aerosol inhaler 2 inh INHALATION Q4HR PRN (Reason: sob) Eliquis 5 mg Tablet 5 mg PO BID Kerendia 10 mg Tablet 10 mg PO QDAY aspirin 81 mg Tablet,Delayed Release (Dr/Ec) 81 mg PO QDAY Qty: 30 0RF atorvastatin 20 mg Tablet 20 mg PO QDAY 30 Days Qty: 0 0RF celecoxib [Celebrex] 200 mg capsule 200 mg PO BID cholecalciferol (vitamin D3) [D3 DOTS] 50 mcg (2,000 unit) tablet 50 mcg PO QDAY Veltassa 25.2 gram powder in packet 25.2 g PO BID diphenoxylate-atropine 2.5-0.025 mg Tablet 1 tab PO QID PRN (Reason: Diarrhea) famotidine 20 mg Tablet 20 mg PO QDAY hydroxyzine HCl 25 mg Tablet 25 mg PO HS memantine 5 mg Tablet 5 mg PO BID folic acid 1 mg Tablet 1 mg PO QDAY Gemtesa 75 mg Tablet 75 mg PO QDAY Referrals: No Primary/Family,Physician [Primary Care Provider] - In 1 week Problem List Clinical Impression: Generalized weakness Patient/Caregiver Discharge Instructions Print Language: Icelandic Stand Alone Forms: Dorina Award Info., Patient Portal Info Letter
[2025-03-15 14:30] VITALS: BP 175/71; PULSE 69; RESP 18; TEMP 37.6; O2SAT 100
--- NOTE | 2025-03-15 14:35 | PD.TNEURO ---
Tele Neuro Consultation Consultation Date 03/15/25 Most Recent Vital Signs Last Vital Signs Temp 99.7 F 03/15/25 14:30 Pulse 69 03/15/25 14:30 Resp 18 03/15/25 14:30 BP 175/71 H 03/15/25 14:30 Pulse Ox 100 03/15/25 14:30 O2 Del Method Room Air 03/15/25 14:30 Consultation Narrative [facility] Tele[facility] Patient Name: Valeria Duvall Date of : 12/11/1949 Identification Number: Date of Service: 03/15/2025 13:39:01 Diagnosis: ? H53.8 - Blurred Vision Impression: ? 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 Patient being seen for episode of unresponsiveness, unsteadiness, blurry vision now resolved. No focal deficits on exam. CT head showing no acute process. CT angiogram head and neck pending. At this time, would rule out metabolic, infectious process. Consider repeating EEG to rule out subclinical seizure activity. Patient had similar episode 4/5 and EEG and MRI were negative for acute stroke and seizure. Patient not a thrombolytic candidate as she is currently on Eliquis.Other differentials include orthostatic hypotension,metabolic, infectious process. . Our recommendations are outlined below. Recommendations: ? ? Neuro Checks ? IV Fluids, Normal Saline ? Euglycemia and Avoid Hyperthermia (PRN Acetaminophen) ? orthostatics ? EEG ? continue eliquis and asa ? Metabolic, infectious work up Sign Out: ? Discussed with Emergency Department Provider Advanced Imaging: Advanced imaging has been ordered. Results pending. Metrics: Last Known Well: 03/15/2025 13:00:00 Dispatch Time: 03/15/2025 13:39:01 Arrival Time: 03/15/2025 13:42:00 Initial Response Time: 03/15/2025 13:46:37 Symptoms: unsteady . Initial patient interaction: 03/15/2025 13:58:18 NIHSS Assessment Completed: 03/15/2025 13:58:19 Patient is not a candidate for Thrombolytic. Thrombolytic Medical Decision: 03/15/2025 13:58:24 Patient was not deemed candidate for Thrombolytic because of following reasons: Use of NOAC in last 48 hrs. . I personally Reviewed the CT Head and it Showed no acute process. Primary Provider Notified of Diagnostic Impression and Management Plan on: 03/15/2025 14:30:22 History of Present Illness: Patient is a 75 year old Female. Patient was brought by EMS for symptoms of unsteady . 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 Patient was with her sister today at [employer] when she had sudden onset of unresponsiveness, staring off, blurry vision. She was brought to the emergency room where currently she is alert, able to follow commands, moving all 4 extremities. Unable to tell us if she is on blood thinners but per review of EMR she is on Eliquis for DVT. She states having a stroke 2 weeks ago that left her with left-sided weakness and slurring speech. Patient was here for similar symptoms on 02/27 and had been related to blood pressure issues and her losartan was on hold for orthostatic hypotension. She had an EEG which was negative for seizure activity, MRI brain was negative for acute process. Patient was discharged on Eliquis and aspirin. Past Medical History: ? Hypertension ? Stroke ? Dementia/MCI Medications: Anticoagulant use: Yes eliuquis Antiplatelet use: Yes asa Reviewed EMR for current medications Allergies: Reviewed Social History: Drug Use: No Family History: There is no family history of premature cerebrovascular disease pertinent to this consultation ROS : 14 Points Review of Systems was performed and was negative except mentioned in HPI. Past Surgical History: There Is No Surgical History Contributory To Today?s Visit Examination: BP(175/71), Pulse(69), 1A: Level of Consciousness - Alert; keenly responsive + 0 1B: Ask Month and Age - 1 Question Right + 1 1C: Blink Eyes & Squeeze Hands - Performs Both Tasks + 0 2: Test Horizontal Extraocular Movements - Normal + 0 3: Test Visual Rene - No Visual Loss + 0 4: Test Facial Palsy (Use Grimace if Obtunded) - Normal symmetry + 0 5A: Test Left Arm Motor Drift - No Drift for 10 Seconds + 0 5B: Test Right Arm Motor Drift - No Drift for 10 Seconds + 0 6A: Test Left Leg Motor Drift - No Drift for 5 Seconds + 0 6B: Test Right Leg Motor Drift - No Drift for 5 Seconds + 0 7: Test Limb Ataxia (FNF/Heel-Waters) - No Ataxia + 0 8: Test Sensation - Normal; No sensory loss + 0 9: Test Language/Aphasia - Normal; No aphasia + 0 10: Test Dysarthria - Normal + 0 11: Test Extinction/Inattention - No abnormality + 0 NIHSS Score: 1 Pre-Morbid Modified [place] Scale: Unable to assess Spoke with : Dr Wilkinson This consult was conducted in real time using interactive audio and video technology. Patient was informed of the technology being used for this visit and agreed to proceed. Patient located in hospital and provider located at home/office setting. Patient is being evaluated for possible acute neurologic impairment and high probability of imminent or life-threatening deterioration. I spent total of 35 minutes providing care to this patient, including time for face to face visit via telemedicine, review of medical records, imaging studies and discussion of findings with providers, the patient and/or family. Dr Oz [facility] For Inpatient follow-up with [facility] physician please call [facility] at . As we are not an outpatient service for any post hospital discharge needs please contact the hospital for assistance. If you have any questions for the [facility] physicians or need to reconsult for clinical or diagnostic changes please contact us via [facility] at .
[2025-03-15 14:37] LABS: Basophils % (Auto) 1 % (0-2.5); Eosinophils # (Auto) 0.3 Thou/mm3 (0.0-0.5); Eosinophils % (Auto) 3 % (0-10); Hematocrit 34.7 % (36.0-46.0); Hemoglobin 11.2 g/dL (12.0-16.0); Immature Granulocytes % (Auto) 0 % (0-0); Immature Granulocytes Auto 0.02 Thou/mm3 (0.00-0.00); Lymphocytes # (Auto) 1.8 Thou/mm3 (1.0-4.8); Lymphocytes % (Auto) 24 % (10-50); Mean Corpuscular HGB Conc 32.3 g/dl (31.0-37.0); Mean Corpuscular Hemoglobin 26.4 pg (25.0-35.0); Mean Corpuscular Volume 82 fL (80-100); Monocytes # (Auto) 0.7 Thou/mm3 (0.0-0.8); Monocytes % (Auto) 9 % (0-12); Neutrophils # (Auto) 4.9 Thou/mm3 (1.8-7.7); Neutrophils % (Auto) 63 % (37-80); Nucleated Red Blood Cell % 0 /100 WBC (0); Platelet Count 321 Thou/mm3 (140-440); RDW Standard Deviation 47.5 fL (36.4-46.3); Red Blood Count 4.24 Miln/mm3 (4.00-5.20); White Blood Count 7.8 Thou/mm3 (3.6-11.0)
[2025-03-15 14:45] LABS: Alanine Aminotransferase 10 U/L (10-49); Albumin, Serum 4.1 gm/dL (3.4-4.8); Albumin/Globulin Ratio 1.4 (1.2-2.2); Alkaline Phosphatase 96 U/L (46-116); Anion Gap 6 (7-16); Aspartate Amino Transferase 17 U/L (0-34); BUN/Creatinine Ratio 10 Ratio (12-20); Bilirubin,Total 0.3 mg/dL (0.3-1.2); Blood Urea Nitrogen 12 mg/dL (9-23); Calcium 9.1 mg/dL (8.3-10.6); Calcium (Corrected) 9.1 mg/dL (8.5-10.1); Carbon Dioxide 28.8 mMol/L (20.0-31.0); Chloride 105 mMol/L (98-107); Creatinine (Component) 1.2 mg/dL (0.6-1.3); Globulin 2.9 gm/dL (2.3-3.5); Glucose 107 mg/dL (74-106); Magnesium 1.8 mg/dL (1.6-2.6); Osmolality,Calculated 279 (275-295); Potassium 3.5 mMol/L (3.4-5.1); Sodium 140 mMol/L (136-145); Troponin I < 0.020 ng/mL (0.0-0.045); eGFR 48 See Note
[2025-03-15 14:49] LABS: Partial Thromboplastin Time 24.1 Seconds (22.0-36.0); Prothrombin Time 10.7 Seconds (9.0-12.2)
[2025-03-15 16:18] VITALS: BP 176/94; PULSE 61; RESP 25; TEMP 36.7; O2SAT 99
[2025-03-15 17:41] VITALS: PULSE 59; PULSE 65; RESP 24; RESP 97
== END 2025-03-15 18:06 | disposition home or self-care (01) ==
PROVIDERS: Emergency Provider Family Medicine
DX: R53.1 Weakness (principal); R26.81 Unsteadiness on feet; R47.01 Aphasia
CPT/HCPCS: 36415; 70450; 70496; 70498; 80053; 81001; 83735; 84484; 85025; 85610; 85730; 93005; 99285; A4649; Q9967

== ENCOUNTER 2025-04-06 09:35 | Emergency (ER) | payer MEDICARE, MEDICAID, SELFPAY ==
[2025-04-06] VITALS (17 sets, daily range): BP systolic 158–186; BP diastolic 61–85; PULSE 50–100; RESP 11–24; TEMP 37.1–37.5; O2SAT 91–100; BMI 29.2
--- NOTE | 2025-04-06 09:40 | PD.EDAMS ---
Altered Mental Status RME/HPI General Chief Complaint: Altered Mental Status Stated Complaint: RIGHT ARM WEAKNESS/CONFUSED 20 MINS AGO Time Seen by Provider: 04/06/25 09:40 Arrival date/time: 04/06/25 09:35 RME / HPI RME / HPI narrative: DR. NORMAN MAIN ED EVALUATION: 74 year old female presents to the Emergency Department with complaints of altered mental status per daughter, patient confused and crying. Onset of symptoms 15 minutes prior to arrival, so about 0920 hours. No other symptoms reported at this time. PMHx: Diabetes Social Hx: No tobacco, alcohol, or substance use. Related Data Home Medications ?Medication ?Instructions ?Recorded ?Confirmed montelukast 10 mg tablet 10 mg PO QPM 02/20/18 02/27/25 (Singulair) Held on 02/27/25. Instructions: Doctor's Order diphenoxylate-atropine 2.5 1 tab PO QID PRN Diarrhea 08/27/23 02/26/25 mg-0.025 mg tablet famotidine 20 mg tablet 20 mg PO QDAY 08/27/23 02/26/25 folic acid 1 mg tablet 1 mg PO QDAY 08/27/23 02/26/25 hydroxyzine HCl 25 mg tablet 25 mg PO HS 08/27/23 02/26/25 memantine 5 mg tablet 5 mg PO BID 08/27/23 02/26/25 vibegron 75 mg tablet (Gemtesa) 75 mg PO QDAY 08/27/23 02/26/25 albuterol sulfate 90 mcg/actuation 2 inh inhalation Q4HR PRN sob 09/06/24 02/27/25 aerosol inhaler Held on 02/27/25. Instructions: Doctor's Order apixaban 5 mg tablet (Eliquis) 5 mg PO BID 09/06/24 02/26/25 finerenone 10 mg tablet (Kerendia) 10 mg PO QDAY 09/06/24 02/26/25 celecoxib 200 mg capsule (Celebrex) 200 mg PO BID 02/26/25 02/26/25 cholecalciferol (vitamin D3) 50 50 mcg PO QDAY 02/26/25 02/26/25 mcg (2,000 unit) tablet (D3 DOTS) patiromer calcium sorbitex 25.2 25.2 g PO BID 02/26/25 02/26/25 gram oral powder packet (Veltassa) Previous Rx's ?Medication ?Instructions ?Recorded aspirin 81 mg tablet,delayed 81 mg PO QDAY #30 tabs 09/08/24 release Held on 02/27/25. Instructions: Doctor's Order atorvastatin 20 mg tablet 20 mg PO QDAY 30 days #0 tabs 09/08/24 diaper,brief,adult,disposable #120 ea 04/06/25 Allergies Allergy/AdvReac Type Severity Reaction Status Date / Time No Known Allergies Allergy Verified 05/24/23 14:01 Review of Systems Review of Systems Systems Reviewed: All systems reviewed, normal except as documented Past Medical History Past Medical History NEUROLOGIC: Positive Neurological Disorders and Cerebrovascular Accident CARDIAC: Positive Cardiac Disorders, Hypercholesterolemia, Deep Vein Thrombosis and Hypertension RESPIRATORY: Positive Chronic Obstructive Pulmonary Disease (COPD) and Bronchitis GASTROINTESTINAL: Positive Gastrointestinal Disorders and Gastroesophageal Reflux Disease MUSCULOSKELETAL: Positive Musculoskeletal Disorders and Arthritis ENDOCRINE: Positive Endocrine Disorders and Diabetes Mellitus Type 2 OTHER HISTORY: Positive Hospitalization, Falls and Blood Transfusions Social History SMOKING STATUS: Never smoker SUBSTANCE USE: does not use ALCOHOL: Never ED Exam Narrative Physical exam: GENERAL APPEARANCE: alert and oriented x 4, well-developed, well-nourished, no acute distress VITALS: All vitals were reviewed and the pulse ox is 99% on room air, which is normal according to my interpretation. HEENT: Normocephalic, atraumatic; pupils equal, round, reactive to light; EOMI; mucous membranes pink, moist; oropharynx clear NECK: Supple LUNGS: CTABL; no wheezes, no rales, no rhonchi HEART: Regular rate, regular rhythm; normal S1, S2; no murmurs ABDOMEN: non distended; normal BS; soft, no tenderness, no guarding, no rebound; no masses, no organomegaly, no hernia BACK: no CVA tenderness EXTREMITIES: atraumatic; no edema NEUROLOGIC: awake; alert and oriented x4; cranial nerves II-XII grossly intact; no focal sensory or motor deficits PSYCHIATRIC: appropriate mood and affect SKIN: warm, dry, normal color; no rashes Course Quality Measures none Orders Category Date Time Status Bedside Blood Glucose NOW Care 04/06/25 09:[address] Screening NOW Care 04/06/25 10:12 Active Parking Lot Chauffeur NOW Care 04/06/25 09:44 Active Continuous Pulse Oximetry NOW Care 04/06/25 09:44 Completed EKG (ED ONLY) *Do not use* NOW Care 04/06/25 09:44 Completed In and Out Catheter NEEDED Care 04/06/25 09:44 Active Insert IV NOW Care 04/06/25 09:44 Active NIH Stroke Scale now Care 04/06/25 09:44 Active NPO NOW Care 04/06/25 09:44 Active Nurse Swallow Screen x1 Care 04/06/25 09:[address] angio carotid w head w Stat Exams 04/06/25 10:[address] head/brain wo con Stat Exams 04/06/25 10:11 Completed EKG (ED Only) Stat Exams 04/06/25 09:44 Draft Alcohol, Blood Medical Stat Lab 04/06/25 10:00 Completed B-Type Natriuretic Peptide Stat Lab 04/06/25 10:00 Completed CBC Stat Lab 04/06/25 10:00 Completed Comprehensive Metabolic Panel Stat Lab 04/06/25 10:00 Completed Drug Screen,Urine Stat Lab 04/06/25 12:09 Completed Magnesium Stat Lab 04/06/25 10:00 Completed Partial Thromboplastin Time Stat Lab 04/06/25 10:00 Completed Prothrombin Time with INR Stat Lab 04/06/25 10:00 Completed Troponin I Stat Lab 04/06/25 10:00 Completed Urinalysis Stat Lab 04/06/25 12:09 Completed Urine Culture Stat Lab 04/06/25 12:09 Received Oxygen Delivery NOW RT 04/06/25 09:44 Active Reevaluation(s) Reevaluation #1: Patient is going to need more care at home, so I contacted healthcare social worker to see if they can arrange for home health. Time: 13:23 Vital Signs Vital signs: Vital Signs Temperature 99.5 F 04/06/25 09:48 Pulse Rate 56 L 04/06/25 09:48 Respiratory Rate 18 04/06/25 09:48 Blood Pressure 174/85 H 04/06/25 09:48 Pulse Oximetry (%) 97 04/06/25 09:48 Oxygen Delivery Method Room Air 04/06/25 09:48 Altered Mental Status MDM Narrative MDM Narrative:: I, Araseli Crain, am scribing for and in the presence of Dr. Norman. Patient data External records reviewed:: [facility] previous records (Reviewed Neurology note by Dr. Bryant, dated 03/15/25.) Clinical information provided by:: patient Social determinants that could affect healthcare access:: none Patient has the following chronic illnesses:: Diabetes How is presenting disease/condition affected by chronic disease/condition?: uneffected by Evaluation data The following diagnostics were reviewed and interpreted by me:: lab results, radiology exam(s) and EKG tracing(s) (EKG#1: EKG at 1009 hours. Interpreted by me: sinus bradycardia, rate 59, no acute ischemic changes) Lab and/or radiology exams considered but not ordered:: none Interpretation Summary: Procedure(s): CT head/brain wo con Accession Number(s): [id number] cc: Gurwinder Nicole; Esequiel Barros MD; Nimco Normna MD~ Examination: CT brain head without contrast. 2-D sagittal coronal reconstructions Date and time of exam:07/07/2025 1033 hours Comparison March 15, 2025 INDICATIONS: Altered mental status today CTDI: vol (mGy):45 DLP: (mGycm):850 Technique: Multiple CT axial sections of the brain have been obtained, 5 mm slice thickness. Contrast has not been administered. 2-D sagittal, coronal reconstructions have been obtained Low dose protocols were performed. One or more of the following dose reduction techniques were used; automated exposure control, adjustment of the mA and/or KV according to patient size, use of iterative reconstruction technique. Findings: Mild ventricular enlargement. Mild encephalomalacia left occipital lobe Intra-axial or extra-axial hemorrhage density is not seen. No mass effect or midline shift Basal cisterns are not remarkable. Fourth ventricle is midline. Cranial vault intact. Impression: Negative for acute hemorrhage, mass effect or midline shift Advise clinical correlation and follow-up accordingly Dictated By: Esequiel Barros MD Procedure(s): CT angio carotid w head w Accession Number(s): [id number] cc: Gurwinder Nicole; Esequiel Barros MD; Nimco Norman MD~ Examination: CTA carotids with intravenous contrast CTA brain, head with intravenous contrast. 2-D sagittal, coronal reconstructions. 3-D reconstructions. Exam date and time: April 06, 2025 1129 hours INDICATIONS: Dizziness episodes with altered mental status today CTDI: vol (mGy) 11 DLP: (mGycm) 474 Technique: Multiple CTA axial brain, head carotid images post intravenous contrast injection 75 cc, Isovue-370. 2-D sagittal, coronal reconstructions. 3-D reconstructions, 3-D post processing including vascular maximum intensity projection images. Low dose protocols were performed. One or more of the following dose reduction techniques were used; automated exposure control, adjustment of the mA and/or KV according to patient size, use of iterative reconstruction technique. Findings: No significant common carotid carotid bifurcation or internal carotid artery stenoses2 Mildly dominant right vertebral artery with no critical stenoses No cerebral large vessel arterial occlusions thrombus dissection or cerebral aneurysm IMPRESSION: No significant neck arterial stenoses No cerebral large vessel arterial occlusions As clinically warranted, consider brain MRI MRA without contrast, stroke protocol follow-up Dictated By: Esequiel Barros MD Medications / Prescriptions Medications or Prescriptions considered but not ordered:: none Medication administrations:: see above if any Consultations Consultation(s) initiated? (list below): No Diagnosis Differential diagnosis altered mental status: altered mental status, dementia, subarachnoid hemorrhage and other (TIA) Most likely diagnosis given after review of the tests above:: AMS Vascular dementia Admission Indicated Admission indicated?: not indicated Admission Request Was there a request for admission?: No Disposition Plan Disposition Plan: Discharge Discharge Attestation Discharge Attestation: The patient and all family members were given an opportunity to ask questions and understood the discharge instructions. Discharge instructions specifically effects, indications for sooner follow up or return to the emergency department, and the expected course of current diagnosis. Patient condition: Stable Discharge Plan Plan Patient Disposition: HOME (Self Care) Patient condition on transfer: Stable Prescriptions/Referrals Prescriptions/Med Rec: New (DME) diaper,brief,adult,disposable Misc See Rx Instructions .Route Qty: 120 0RF Rx Instructions: As directed No Action montelukast [Singulair] 10 mg Tablet 10 mg PO QPM albuterol sulfate 90 mcg/actuation HFA aerosol inhaler 2 inh INHALATION Q4HR PRN (Reason: sob) Eliquis 5 mg Tablet 5 mg PO BID Kerendia 10 mg Tablet 10 mg PO QDAY aspirin 81 mg Tablet,Delayed Release (Dr/Ec) 81 mg PO QDAY Qty: 30 0RF atorvastatin 20 mg Tablet 20 mg PO QDAY 30 Days Qty: 0 0RF celecoxib [Celebrex] 200 mg capsule 200 mg PO BID cholecalciferol (vitamin D3) [D3 DOTS] 50 mcg (2,000 unit) tablet 50 mcg PO QDAY Veltassa 25.2 gram powder in packet 25.2 g PO BID diphenoxylate-atropine 2.5-0.025 mg Tablet 1 tab PO QID PRN (Reason: Diarrhea) famotidine 20 mg Tablet 20 mg PO QDAY hydroxyzine HCl 25 mg Tablet 25 mg PO HS memantine 5 mg Tablet 5 mg PO BID folic acid 1 mg Tablet 1 mg PO QDAY Gemtesa 75 mg Tablet 75 mg PO QDAY Problem List Clinical Impression: Altered mental status, Vascular dementia Patient/Caregiver Discharge Instructions Education Materials: ED Confusion Print Language: Kazakh Stand Alone Forms: Dorina Award Info., Patient Portal Info Letter
--- NOTE | 2025-04-06 09:44 | EKG_ITS ---
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
[2025-04-06 10:11] LABS: Basophils % (Auto) 1 % (0-2.5); Eosinophils # (Auto) 0.5 Thou/mm3 (0.0-0.5); Eosinophils % (Auto) 7 % (0-10); Hematocrit 34.6 % (36.0-46.0); Hemoglobin 11.1 g/dL (12.0-16.0); Immature Granulocytes % (Auto) 0 % (0-0); Immature Granulocytes Auto 0.01 Thou/mm3 (0.00-0.00); Lymphocytes # (Auto) 1.4 Thou/mm3 (1.0-4.8); Lymphocytes % (Auto) 20 % (10-50); Mean Corpuscular HGB Conc 32.1 g/dl (31.0-37.0); Mean Corpuscular Hemoglobin 26.4 pg (25.0-35.0); Mean Corpuscular Volume 82 fL (80-100); Monocytes # (Auto) 0.5 Thou/mm3 (0.0-0.8); Monocytes % (Auto) 7 % (0-12); Neutrophils # (Auto) 4.5 Thou/mm3 (1.8-7.7); Neutrophils % (Auto) 65 % (37-80); Nucleated Red Blood Cell % 0 /100 WBC (0); Platelet Count 338 Thou/mm3 (140-440); RDW Standard Deviation 48.3 fL (36.4-46.3); Red Blood Count 4.21 Miln/mm3 (4.00-5.20); White Blood Count 6.9 Thou/mm3 (3.6-11.0)
--- NOTE | 2025-04-06 10:11 | XR_ITS ---
Examination: CT brain head without contrast. 2-D sagittal coronal reconstructions Date and time of exam:07/07/2025 1033 hours Comparison March 15, 2025 INDICATIONS: Altered mental status today CTDI: vol (mGy):45 DLP: (mGycm):850 Technique: Multiple CT axial sections of the brain have been obtained, 5 mm slice thickness. Contrast has not been administered. 2-D sagittal, coronal reconstructions have been obtained Low dose protocols were performed. One or more of the following dose reduction techniques were used; automated exposure control, adjustment of the mA and/or KV according to patient size, use of iterative reconstruction technique. Findings: Mild ventricular enlargement. Mild encephalomalacia left occipital lobe Intra-axial or extra-axial hemorrhage density is not seen. No mass effect or midline shift Basal cisterns are not remarkable. Fourth ventricle is midline. Cranial vault intact. Impression: Negative for acute hemorrhage, mass effect or midline shift Advise clinical correlation and follow-up accordingly
--- NOTE | 2025-04-06 10:12 | XR_ITS ---
Examination: CTA carotids with intravenous contrast CTA brain, head with intravenous contrast. 2-D sagittal, coronal reconstructions. 3-D reconstructions. Exam date and time: April 06, 2025 1129 hours INDICATIONS: Dizziness episodes with altered mental status today CTDI: vol (mGy) 11 DLP: (mGycm) 474 Technique: Multiple CTA axial brain, head carotid images post intravenous contrast injection 75 cc, Isovue-370. 2-D sagittal, coronal reconstructions. 3-D reconstructions, 3-D post processing including vascular maximum intensity projection images. Low dose protocols were performed. One or more of the following dose reduction techniques were used; automated exposure control, adjustment of the mA and/or KV according to patient size, use of iterative reconstruction technique. Findings: No significant common carotid carotid bifurcation or internal carotid artery stenoses2 Mildly dominant right vertebral artery with no critical stenoses No cerebral large vessel arterial occlusions thrombus dissection or cerebral aneurysm IMPRESSION: No significant neck arterial stenoses No cerebral large vessel arterial occlusions As clinically warranted, consider brain MRI MRA without contrast, stroke protocol follow-up
[2025-04-06 10:34] LABS: B-Type Natriuretic Peptide 84 pg/mL (0-100)
[2025-04-06 10:48] LABS: Alanine Aminotransferase 8 U/L (10-49); Albumin, Serum 4.1 gm/dL (3.4-4.8); Albumin/Globulin Ratio 1.4 (1.2-2.2); Alcohol, Blood Medical < 3.0 mg/dL (0-10.0); Alkaline Phosphatase 97 U/L (46-116); Anion Gap 8 (7-16); Aspartate Amino Transferase 14 U/L (0-34); BUN/Creatinine Ratio 13 Ratio (12-20); Bilirubin,Total 0.5 mg/dL (0.3-1.2); Blood Urea Nitrogen 14 mg/dL (9-23); Calcium 8.8 mg/dL (8.3-10.6); Calcium (Corrected) 8.8 mg/dL (8.5-10.1); Carbon Dioxide 29.7 mMol/L (20.0-31.0); Chloride 105 mMol/L (98-107); Creatinine (Component) 1.1 mg/dL (0.6-1.3); Estimated Creatinine Clearance 38.6 mL/min (>60); Glucose 120 mg/dL (74-106); Magnesium 1.7 mg/dL (1.6-2.6); Osmolality,Calculated 286 (275-295); Potassium 3.4 mMol/L (3.4-5.1); Sodium 143 mMol/L (136-145); Total Protein 7.1 gm/dL (5.7-8.2); Troponin I < 0.002 ng/mL (0.0-0.045); eGFR 53 See Note
[2025-04-06 10:55] LABS: Partial Thromboplastin Time 24.3 Seconds (22.0-36.0); Prothrombin Time 10.6 Seconds (9.0-12.2)
[2025-04-06 12:19] LABS: Collection Type, Urine Catheter
[2025-04-06 12:24] LABS: Bacteria,Urine Rare; Bilirubin,Urine Negative (Negative); Blood,Urine Negative (Negative); Clarity,Urine Clear (Clear/Hazy); Color,Urine Colorless (Lt Yel-Yel); Glucose, Urine Negative (Negative); Ketones,Urine Negative (Negative); Leukocyte Esterase,Urine Negative (Negative); Nitrite,Urine Positive (Negative); PH,Urine 6.5 (5.0-7.0); Protein,Urine Negative (Neg - Trace); RBC,Urine 1 /hpf (0-3); Specific Gravity,Urine 1.015 (1.001-1.035); Squamous Epithelial Cell,Urine < 1 /hpf (0-5); Urobilinogen,Urine Negative mg/dL (0.0-1.0); WBC,Urine 2 /hpf (0-5)
[2025-04-06 12:34] LABS: Amphetamine/Methamp Scrn,U Negative (Negative); Barbiturate Screen,Urine Negative (Negative); Benzodiazepines Screen,Urine Negative (Negative); Benzoylecgonine Screen, Ur Negative (Negative); Fentanyl Screen,Urine Negative (Negative); Opiate Screen,Urine Negative (Negative); THC Screen,Urine Negative (Negative)
--- NOTE | 2025-04-06 13:34 | PC.SS ---
ASW met with patient and sister, Valeria at bed side to discuss home health services. Per sister, Valeria she takes care of the patient and her daily needs. Valeria denies SNF and home health services at this time. ASW offered [facility] referral, however patient's sister informs she is already connected and she is receiving payment to help care for the patient already. Valeria inquired about a shower chair and informed her shower equipment not covered by patient's insurance, would have to be purchased out of pocket and she verbalized understanding. ASW provided community resources at this time, no further questions from the family.
== END 2025-04-06 14:00 | disposition home or self-care (01) ==
PROVIDERS: Emergency Provider Emergency Medicine; PCP Physician Assistant
DX: F01.50 Vascular dementia, unspecified severity, without behavioral disturbance, psychotic disturbance, mood disturbance, and anxiety (principal); E11.9 Type 2 diabetes mellitus without complications
CPT/HCPCS: 36415; 70450; 70496; 70498; 80053; 80307; 80320; 81001; 83735; 83880; 84484; 85025; 85610; 85730; 87077; 87086; 87186; 93005; 99285; A4649; Q9967; G0480

== ENCOUNTER 2025-07-19 08:35 | Inpatient (IN) | payer OTHER, MEDICAID, MEDICARE, SELFPAY ==
[2025-07-19] VITALS (8 sets, daily range): BP systolic 143–166; BP diastolic 55–101; PULSE 51–76; RESP 16–100; TEMP 36.4–36.9; O2SAT 93–99
--- NOTE | 2025-07-19 08:45 | EKG_ITS ---
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
--- NOTE | 2025-07-19 08:45 | XR_ITS ---
Examination: AP chest single view TECHNIQUE: AP portable upright chest single view Date and time: July 19, 2025 0926 hours INDICATIONS: Stroke alert this a.m. FINDINGS: Normal heart size. No aspiration pneumonia. Significant osteopenia. IMPRESSION: No aspiration pneumonia.
--- NOTE | 2025-07-19 08:45 | XR_ITS ---
Examination: CT brain head without contrast. 2-D sagittal coronal reconstructions Date and time of exam:July 19, 2025, 0858 hours INDICATIONS: Stroke alert, alignment set confusion focal neurologic deficit today CTDI: vol (mGy):45 DLP: (mGycm):848 Technique: Multiple CT axial sections of the brain have been obtained, 5 mm slice thickness. Contrast has not been administered. 2-D sagittal, coronal reconstructions have been obtained Low dose protocols were performed. One or more of the following dose reduction techniques were used; automated exposure control, adjustment of the mA and/or KV according to patient size, use of iterative reconstruction technique. Findings: Prominent atrophy with mild ventricular enlargement Intra-axial or extra-axial hemorrhage density is not seen. No mass effect or midline shift Basal cisterns are not remarkable. Fourth ventricle is midline. Cranial vault intact. Impression: Negative for acute hemorrhage, mass effect or midline shift
--- NOTE | 2025-07-19 08:45 | XR_ITS ---
Examination: CTA carotids with intravenous contrast CTA brain, head with intravenous contrast. 2-D sagittal, coronal reconstructions. 3-D reconstructions. Exam date and time: July 19, 2025, 0912 hours INDICATIONS: Stroke alert, onset focal neurologic deficit beginning this morning. CTDI: vol (mGy) 30.5. DLP: (mGycm) 4-67. Technique: Multiple CTA axial brain, head carotid images post intravenous contrast injection 75 cc, Isovue-370. 2-D sagittal, coronal reconstructions. 3-D reconstructions, 3-D post processing including vascular maximum intensity projection images. Low dose protocols were performed. One or more of the following dose reduction techniques were used; automated exposure control, adjustment of the mA and/or KV according to patient size, use of iterative reconstruction technique. Findings: Carotid artery significant stenoses Dominant right vertebral artery with no critical vertebral artery stenoses in the neck No cerebral vessel arterial occlusions or thrombus IMPRESSION: No significant neck arterial stenoses No cerebral large vessel arterial occlusions or thromboses
--- NOTE | 2025-07-19 08:45 | PD.EDRME ---
Rapid Medical Screening Exam RME Arrival date/time: 07/19/25 08:35 75-year-old female with a history of hyperlipidemia, a history of a CVA, presents to the emergency room with a chief complaint of right sided upper and lower extremity numbness, facial droop according to family member at bedside, and confusion x 30 minutes. I have greeted and performed a focused initial assessment of this patient. A comprehensive ED assessment and evaluation of the patient, analysis of all test results, and completion of the medical decision making process will be conducted by additional ED providers. Chief Complaint: General Adult/Misc Complain Vital signs reviewed by provider: Yes
--- NOTE | 2025-07-19 09:11 | PD.EDNEURO ---
Neuro Symptoms Deficit-RME/HPI General Chief Complaint: General Adult/Misc Complain Stated Complaint: CONFUSED,R) ARM LIMP, MOUTH DROOP Time Seen by Provider: 07/19/25 09:15 Arrival date/time: 07/19/25 08:35 Limitations: no limitations RME / HPI RME / HPI Narrative: 07/19/25 08:35 75-year-old female with a history of hyperlipidemia, a history of a CVA, presents to the emergency room with a chief complaint of right sided upper and lower extremity numbness, facial droop according to family member at bedside, and confusion x 30 minutes. I have greeted and performed a focused initial assessment of this patient. A comprehensive ED assessment and evaluation of the patient, analysis of all test results, and completion of the medical decision making process will be conducted by additional ED providers. DR. 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 Sister reports since her CVA she has baseline aphasia and confusion; however, symptoms are worse today. Stated the patient didn't know where to go and appeared disoriented. Patient was at her usual state of health yesterday and went to bed at 9PM last night. Patients sister additionally reports she had an appointment scheduled today with duck operator Dr. Paz Related [employer] Home Medications ?Medication ?Instructions ?Recorded ?Confirmed montelukast 10 mg tablet 10 mg PO QPM 02/20/18 02/27/25 (Singulair) Held on 02/27/25. Instructions: Doctor's Order diphenoxylate-atropine 2.5 1 tab PO QID PRN Diarrhea 08/27/23 02/26/25 mg-0.025 mg tablet famotidine 20 mg tablet 20 mg PO QDAY 08/27/23 02/26/25 folic acid 1 mg tablet 1 mg PO QDAY 08/27/23 02/26/25 hydroxyzine HCl 25 mg tablet 25 mg PO HS 08/27/23 02/26/25 memantine 5 mg tablet 5 mg PO BID 08/27/23 02/26/25 vibegron 75 mg tablet (Gemtesa) 75 mg PO QDAY 08/27/23 02/26/25 albuterol sulfate 90 mcg/actuation 2 inh inhalation Q4HR PRN sob 09/06/24 02/27/25 aerosol inhaler Held on 02/27/25. Instructions: Doctor's Order apixaban 5 mg tablet (Eliquis) 5 mg PO BID 09/06/24 02/26/25 finerenone 10 mg tablet (Kerendia) 10 mg PO QDAY 09/06/24 02/26/25 celecoxib 200 mg capsule (Celebrex) 200 mg PO BID 02/26/25 02/26/25 cholecalciferol (vitamin D3) 50 50 mcg PO QDAY 02/26/25 02/26/25 mcg (2,000 unit) tablet (D3 DOTS) patiromer calcium sorbitex 25.2 25.2 g PO BID 02/26/25 02/26/25 gram oral powder packet (Veltassa) Previous Rx's ?Medication ?Instructions ?Recorded aspirin 81 mg tablet,delayed 81 mg PO QDAY #30 tabs 09/08/24 release Held on 02/27/25. Instructions: Doctor's Order atorvastatin 20 mg tablet 20 mg PO QDAY 30 days #0 tabs 09/08/24 diaper,brief,adult,disposable #120 ea 04/06/25 Allergies Allergy/AdvReac Type Severity Reaction Status Date / Time No Known Allergies Allergy Verified 07/19/25 08:38 Review of Systems Review of Systems Systems Reviewed: All systems reviewed, normal except as documented ED Exam General Limitations: Present no limitations General appearance: Present alert and other (appears globally weak) Head Head exam: Present atraumatic and normocephalic Eye Eye exam: Present normal appearance, PERRL and EOMI ENT ENT exam: Present normal exam, normal oropharynx and mucous membranes moist Neck Neck exam: Present normal inspection, full ROM and trachea midline Chest Chest inspection: Present normal inspection and symmetric chest wall rise Respiratory Respiratory exam: Present normal lung sounds bilaterally Cardiovascular Cardiovascular exam: Present regular rate, normal rhythm and normal heart sounds Abdominal Exam Abdominal exam: Present soft and normal bowel sounds Extremities Exam Extremities exam: Present normal inspection and full ROM Back Exam Back exam: Present normal inspection and full ROM Neurological Exam Neurological exam: Present alert, CN II-XII intact and other (partial apahasia, moves all 4 extremities, follows commands ) Psychiatric Psychiatric exam: Present normal affect and normal mood Skin Skin exam: Present warm, dry, intact and normal color Course Quality Measures Suspected type of Stroke: Non Acute Last known well (date): 07/18/25 Last known well (time): 21:00 Tenecteplase given: Reason(s) TPA not given: Outside the time window not given stroke Orders Category Date Time Status Admit to Inpatient Status Routine Admission 07/19/25 11:45 Active Patient Condition Routine Admission 07/19/25 11:46 Ordered Aspiration precautions NOW Care 07/19/25 11:46 Active Bedside Blood Glucose NOW Care 07/19/25 08:45 Active Farm Adviser NOW Care 07/19/25 08:45 Active Continuous Pulse Oximetry NOW Care 07/19/25 08:45 Completed Continuous Pulse Oximetry NOW Care 07/19/25 11:46 Active EKG (ED ONLY) *Do not use* NOW Care 07/19/25 08:45 Completed Flu & Pneumonia Vaccine Screen ONCE Care 07/19/25 11:46 Active Head of Bed Elevation NOW Care 07/19/25 11:46 Active In and Out Catheter NEEDED Care 07/19/25 08:45 Active Insert IV NOW Care 07/19/25 08:45 Active MRI Screening NOW Care 07/19/25 11:46 Active Miscellaneous Nursing Order NOW Care 07/19/25 11:46 Active NIH Stroke Scale now Care 07/19/25 08:45 Active NPO NOW Care 07/19/25 08:45 Active NPO NOW Care 07/19/25 11:46 Active Neuro Check Q4H Care 07/19/25 11:46 Active Notify provider NEEDED Care 07/19/25 11:46 Active Nurse Swallow Screen X1 Care 07/19/25 11:46 Active Nurse Swallow Screen x1 Care 07/19/25 08:45 Active Seizure precautions NEEDED Care 07/19/25 11:46 Active Sequential Compression Device QSHIFT Care 07/19/25 11:46 Active Consult to Neurology / Tele-Neurology Routine Cons 07/19/25 08:45 Active Consult to Neurology / Tele-Neurology Routine Cons 07/19/25 11:46 Active Referral Physical Therapy Routine Cons 07/19/25 11:46 Active Referral Speech Therapy Routine Cons 07/19/25 11:46 Active Diet NPO (NOW) Diet 07/19/25 11:46 Active CA echo doppler complete Stat Exams 07/19/25 11:[address] angio stroke protocol Stat Exams 07/19/25 08:[address] stroke protocol Stat Exams 07/19/25 08:45 Completed EKG (ED Only) Stat Exams 07/19/25 08:45 Draft MR stroke protocol brain wo con with MRA head and neck Exams 07/19/25 11:46 Ordered Stat XR chest 1V portable Stat Exams 07/19/25 08:45 Completed CBC AM DRAW Lab 07/20/25 05:00 Ordered CBC AM DRAW Lab 07/21/25 05:00 Ordered CBC AM DRAW Lab 07/22/25 05:00 Ordered CBC Stat Lab 07/19/25 09:06 Completed Comprehensive Metabolic Panel AM DRAW Lab 07/20/25 05:00 Ordered Comprehensive Metabolic Panel AM DRAW Lab 07/21/25 05:00 Ordered Comprehensive Metabolic Panel AM DRAW Lab 07/22/25 05:00 Ordered Comprehensive Metabolic Panel Stat Lab 07/19/25 09:06 Completed Drug Screen,Urine Stat Lab 07/19/25 10:40 Received Lipid Panel AM DRAW Lab 07/20/25 05:00 Ordered Magnesium AM DRAW Lab 07/20/25 05:00 Ordered Magnesium AM DRAW Lab 07/21/25 05:00 Ordered Magnesium AM DRAW Lab 07/22/25 05:00 Ordered Magnesium Stat Lab 07/19/25 09:06 Completed Partial Thromboplastin Time Stat Lab 07/19/25 09:06 Completed Phosphorous AM DRAW Lab 07/20/25 05:00 Ordered Phosphorous AM DRAW Lab 07/21/25 05:00 Ordered Phosphorous AM DRAW Lab 07/22/25 05:00 Ordered Prothrombin Time with INR Stat Lab 07/19/25 09:06 Completed T4 (Thyroxine) Stat Lab 07/19/25 09:06 Completed TSH [Thyroid Stimulating Hormone] Stat Lab 07/19/25 09:06 Completed Thyroid Stimulating Hormone AM DRAW Lab 07/20/25 05:00 Ordered Troponin I Stat Lab 07/19/25 09:06 Completed Urinalysis, C/S if Indicated Stat Lab 07/19/25 10:40 Completed Urine Culture Stat Lab 07/19/25 10:40 Received Acetaminophen Tab [Tylenol Tab] Med 07/19/25 11:46 Ordered 1,000 mg PO Q6H PRN Acetaminophen Tab [Tylenol Tab] Med 07/19/25 11:46 Ordered 650 mg PO Q6H PRN Labetalol IV [Trandate IV] Med 07/19/25 11:46 Ordered 10 mg IVP Q6H PRN Ondansetron Inj [Zofran Inj] Med 07/19/25 11:46 Ordered 4 mg IVP Q6H PRN Sodium Chloride 0.9% 1000 ml [Ns] 1,000 ml Med 07/19/25 12:00 Active IV 75 mls/hr Code Status Routine Oth 07/19/25 11:46 Ordered Oxygen Delivery NOW RT 07/19/25 08:45 Active Vital Signs Vital signs: Vital Signs Temperature 98.3 F 07/19/25 08:55 Pulse Rate 62 07/19/25 08:55 Respiratory Rate 18 07/19/25 08:55 Blood Pressure 146/101 H 07/19/25 08:55 Pulse Oximetry (%) 95 07/19/25 08:55 Oxygen Delivery Method Room Air 07/19/25 08:55 Pulse ox is 95% on room air which is adequate. Neuro Symptoms / Deficit MDM Narrative MDM Narrative:: Patient is a 75-year-old female with medical history notable for prior CVA, hyperlipidemia, previous on blood thinner not currently on blood thinner, this in the emergency room with concerns for worsening aphasia and weakness. Vital signs and exam as listed. Patient was activated as a stroke alert given her changes in ability to speak. Taken to CT scan. Also concern for metabolic disturbance, as well as a postprocedure. Labs without acute hematologic abnormality, no significant metabolic disturbance, troponin not elevated, EKG performed July 19, 2025 at 9:22 AM sinus rhythm, normal intervals, nonspecific T wave changes, nonicteric alert. CT angio unremarkable. CT brain unremarkable. Chest x-ray unremarkable. Teleneurologist evaluated patient, concerned that this could be possibly a poststroke seizure, no seizure or metabolic disturbance. Recommends evaluation with an MRI EEG continue aspirin and Plavix. Will consult hospitalist for admission. Discussed case with hospitalist, kindly excepted patient for admission Patient data External records reviewed:: [facility] previous records (I reviewed ED Visit on 04/06/2025 ) Clinical information provided by:: patient and family (sister provides hx ) Social determinants that could affect healthcare access:: none Patient has the following chronic illnesses:: dementia, CVA (2019), hypertension, diabetes, hyperlipidemia, DVTs How is presenting disease/condition affected by chronic disease/condition?: exacerbated by Evaluation data The following diagnostics were reviewed and interpreted by me:: lab results, radiology exam(s) and EKG tracing(s) Lab and/or radiology exams considered but not ordered:: None Interpretation Summary: Ordering Physician: Wilman Obrien Date of Service: 07/19/25 Procedure(s): XR chest 1V portable Accession Number(s): [id number] cc: Wilman Obrien; Esequiel Barros MD~ Examination: AP chest single view TECHNIQUE: AP portable upright chest single view Date and time: July 19, 2025 0926 hours INDICATIONS: Stroke alert this a.m. FINDINGS: Normal heart size. No aspiration pneumonia. Significant osteopenia. IMPRESSION: No aspiration pneumonia. Dictated By: Esequiel Barros MD Signed By: <Electronically signed by Esequiel Barros MD in OV> 07/19/25 0935 Ordering Physician: Wilman Obrien Date of Service: 07/19/25 Procedure(s): CT stroke protocol Accession Number(s): [id number] cc: Wilman Obrien; Esequiel Barros MD~ Examination: CT brain head without contrast. 2-D sagittal coronal reconstructions Date and time of exam:July 19, 2025, 0858 hours INDICATIONS: Stroke alert, alignment set confusion focal neurologic deficit today CTDI: vol (mGy):45 DLP: (mGycm):848 Technique: Multiple CT axial sections of the brain have been obtained, 5 mm slice thickness. Contrast has not been administered. 2-D sagittal, coronal reconstructions have been obtained Low dose protocols were performed. One or more of the following dose reduction techniques were used; automated exposure control, adjustment of the mA and/or KV according to patient size, use of iterative reconstruction technique. Findings: Prominent atrophy with mild ventricular enlargement Intra-axial or extra-axial hemorrhage density is not seen. No mass effect or midline shift Basal cisterns are not remarkable. Fourth ventricle is midline. Cranial vault intact. Impression: Negative for acute hemorrhage, mass effect or midline shift Dictated By: Esequiel Barros MD Signed By: <Electronically signed by Esequiel Barros MD in OV> 07/19/25 0907 Ordering Physician: Wilman Obrien Date of Service: 07/19/25 Procedure(s): CT angio stroke protocol Accession Number(s): [id number] cc: Wilman Obrien; Esequiel Barros MD~ Examination: CTA carotids with intravenous contrast CTA brain, head with intravenous contrast. 2-D sagittal, coronal reconstructions. 3-D reconstructions. Exam date and time: July 19, 2025, 0912 hours INDICATIONS: Stroke alert, onset focal neurologic deficit beginning this morning. CTDI: vol (mGy) 30.5. DLP: (mGycm) 4-67. Technique: Multiple CTA axial brain, head carotid images post intravenous contrast injection 75 cc, [id number]. 2-D sagittal, coronal reconstructions. 3-D reconstructions, 3-D post processing including vascular maximum intensity projection images. Low dose protocols were performed. One or more of the following dose reduction techniques were used; automated exposure control, adjustment of the mA and/or KV according to patient size, use of iterative reconstruction technique. Findings: Carotid artery significant stenoses Dominant right vertebral artery with no critical vertebral artery stenoses in the neck No cerebral vessel arterial occlusions or thrombus IMPRESSION: No significant neck arterial stenoses No cerebral large vessel arterial occlusions or thromboses Dictated By: Esequiel Barros MD Signed By: <Electronically signed by Esequiel Barros MD in OV> 07/19/25 0932 Medications / Prescriptions Medications or Prescriptions considered but not ordered:: None Medication administrations:: Medication Administration History Acetaminophen (Acetaminophen 325 Mg Tablet) 650 mg PO Q6H PRN PRN Reason: Fever >100.4 Stop: 08/18/25 11:45 Acetaminophen (Acetaminophen 325 Mg Tablet) 1,000 mg PO Q6H PRN PRN Reason: PAIN SCALE 1-3 (mild Stop: 08/18/25 11:45 Sodium Chloride (Ns) 1,000 mls @ 75 mls/hr IV .[id number] MATT Stop: 08/18/25 11:59 Labetalol HCl (Labetalol Inj 5 Mg/Ml Vial 20 Ml) 10 mg IVP Q6H PRN PRN Reason: SBP>220, DBP>110 Stop: 08/18/25 11:45 Ondansetron HCl (Ondansetron Inj 2 Mg/Ml Inj 2 Ml) 4 mg IVP Q6H PRN; Protocol PRN Reason: NAUSEA OR VOMITING Stop: 08/18/25 11:45 See above Consultations Consultation(s) initiated? (list below): Yes Consultation #1 (Physician, Specialty, Details): I spoke with teleneurologist Dr. Crump as noted above. Time: 09:27 Diagnosis Neuro Differential Diagnosis: subarachnoid hemorrhage, cerebrovascular accident and transient cerebral ischemia Most likely diagnosis given after review of the tests above:: CVA Aphasia Admission Indicated Admission indicated?: indicated Admission Request Was there a request for admission?: Yes Admission Attestation Admission request attestation: Discussed case with [] from Hospitalist service regarding admission. Discussed patients ED course, exam findings, labs, and radiology results. The Hospitalist [agrees,declines] to accept the patient for admission. Disposition Plan Disposition Plan: Admit Critical Care Time Critical Care Time Critical Care Time: Yes Total Critical Care Time (min.): 45 Attestation: The high probability of sudden, clinically significant deterioration in the patient's condition required the highest level of my preparedness to intervene urgently. The services I provided to this patient were to treat and/or prevent clinically significant deterioration. Services included the following: chart data review, reviewing nursing notes and/or old charts, documentation time, senior solutions consultant collaboration regarding findings and treatment options, medication orders and management, direct patient care, vital sign assessments and ordering, interpreting and reviewing diagnostic studies and lab tests. Aggregate critical care time includes only time during which I was engaged in work directly related to the patient's care, as described above, whether at bedside or elsewhere in the Emergency Department. It did not include time spent performing other reported procedures or the services of residents, students, nurses or physician assistants. Discharge Plan Plan Patient Disposition: Admit Acute Care w/in Hospital Prescriptions/Referrals Prescriptions/Med Rec: No Action montelukast [Singulair] 10 mg Tablet 10 mg PO QPM albuterol sulfate 90 mcg/actuation HFA aerosol inhaler 2 inh INHALATION Q4HR PRN (Reason: sob) Eliquis 5 mg Tablet 5 mg PO BID Kerendia 10 mg Tablet 10 mg PO QDAY aspirin 81 mg Tablet,Delayed Release (Dr/Ec) 81 mg PO QDAY Qty: 30 0RF atorvastatin 20 mg Tablet 20 mg PO QDAY 30 Days Qty: 0 0RF celecoxib [Celebrex] 200 mg capsule 200 mg PO BID cholecalciferol (vitamin D3) [D3 DOTS] 50 mcg (2,000 unit) tablet 50 mcg PO QDAY Veltassa 25.2 gram powder in packet 25.2 g PO BID (DME) diaper,brief,adult,disposable Misc See Rx Instructions .Route Qty: 120 0RF Rx Instructions: As directed diphenoxylate-atropine 2.5-0.025 mg Tablet 1 tab PO QID PRN (Reason: Diarrhea) famotidine 20 mg Tablet 20 mg PO QDAY hydroxyzine HCl 25 mg Tablet 25 mg PO HS memantine 5 mg Tablet 5 mg PO BID folic acid 1 mg Tablet 1 mg PO QDAY Gemtesa 75 mg Tablet 75 mg PO QDAY Problem List Clinical Impression: CVA (cerebrovascular accident), Aphasia Patient/Caregiver Discharge Instructions Print Language: Macedonian Stand Alone Forms: Dorina Award Info., Patient Portal Info Letter
[2025-07-19 09:15] LABS: Basophils # (Auto) 0.1 Thou/mm3 (0.0-0.2); Basophils % (Auto) 1 % (0-2.5); Eosinophils # (Auto) 0.2 Thou/mm3 (0.0-0.5); Eosinophils % (Auto) 3 % (0-10); Hematocrit 37.1 % (36.0-46.0); Hemoglobin 11.7 g/dL (12.0-16.0); Immature Granulocytes Auto 0.02 Thou/mm3 (0.00-0.00); Lymphocytes # (Auto) 1.9 Thou/mm3 (1.0-4.8); Lymphocytes % (Auto) 22 % (10-50); Mean Corpuscular HGB Conc 31.5 g/dl (31.0-37.0); Mean Corpuscular Hemoglobin 26.4 pg (25.0-35.0); Mean Corpuscular Volume 84 fL (80-100); Monocytes # (Auto) 0.8 Thou/mm3 (0.0-0.8); Monocytes % (Auto) 10 % (0-12); Neutrophils # (Auto) 5.3 Thou/mm3 (1.8-7.7); Neutrophils % (Auto) 65 % (37-80); Nucleated Red Blood Cell # 0.00 Thou/mm3 (0.00-0.00); Nucleated Red Blood Cell % 0 /100 WBC (0); Platelet Count 283 Thou/mm3 (140-440); RDW Standard Deviation 51.4 fL (36.4-46.3); Red Blood Count 4.44 Miln/mm3 (4.00-5.20); White Blood Count 8.3 Thou/mm3 (3.6-11.0)
--- NOTE | 2025-07-19 09:18 | ESCONSULT_ITS ---
Tele Neuro Consultation Consultation Date 07/19/25 Consultation Narrative [facility] Tele[facility]urology Consult [facility] Patient Name:???Jadiel Shaw Date of :???1950 Identification Number:??? Date of Service:???07/19/2025 08:47:38 Diagnosis:?R47.01 - Aphasia Impression: ?This is a 74-year-old female with vascular risk factors including prior stroke, HTN, DM, HLD, and age. She takes 81 mg aspirin and apixaban for prior DVTs. She had a prior stroke that presented with aphasia and mild right sided weakness which did not fully resolve. Last documented NIHSS score was 0. Today she presents with worsening speech upon awakening and no other symptoms. ? ?#1 Mild aphasia ? ?Differential diagnosis includes new ischemic stroke, recrudesence of prior deficits secondary to systemic problem such as toxic, metabolic, or infectious process, and focal post stroke seizure with post ictal Emmett's paresis (aphasia). ? ?Please obtain an MRI brain without gadolinium. Continuous cardiac monitoring. Routine EEG. If there is no new stroke she does not require echo or additional stroke labs. NPO pending bedside swallow study. Okay to continue aspirin. If there is no new stroke okay to continue anticoagulation. ?Although recent notes indicate that she is on apixaban for prior DVTs, she has a note in February that mentions rivaroxaban for atrial fibrillation. Our recommendations are outlined below. Recommendations: ? Stroke/Telemetry Floor ? Neuro Checks (Q4) ? Bedside Swallow Eval ? DVT Prophylaxis ? IV Fluids, Normal Saline ? Head of Bed 30 Degrees ? Euglycemia and Avoid Hyperthermia (PRN Acetaminophen) ? Antihypertensives PRN if Blood pressure is greater than 220/120 or there is a concern for End organ damage/contraindications for permissive HTN. If blood pressure is greater than 220/120 give labetalol PO or IV or Vasotec IV with a goal of 15% reduction in BP during the first 24 hours. Sign Out: ? Discussed with Emergency Department Provider Advanced Imaging:Advanced imaging has been ordered. Results pending. Metrics: Last Known Well: 07/18/2025 21:00:00 Dispatch Time: 07/19/2025 08:47:38 Arrival Time: 07/19/2025 08:35:00 Initial Response Time: 07/19/2025 08:49:00Symptoms: worsening speech. Initial patient interaction: 07/19/2025 08:58:11 NIHSS Assessment Completed: 07/19/2025 09:04:15Patient is not a candidate for Thrombolytic. Thrombolytic Medical Decision: 07/19/2025 08:51:41Patient was not deemed candidate for Thrombolytic because of following reasons: LKW outside 4.[address] Head: I personally reviewed all the CT images that were available to me and it showed: no hemorrhage, hyperdense vessel sign, or definite acute ischemic changes. Primary Provider Notified of Diagnostic Impression and Management Plan on: 07/19/2025 09:27:29 History of Present Illness:Patient is a 75 year old Female. Patient was brought by private transportation with symptoms of worsening speech. This is a 74-year-old female with vascular risk factors including prior stroke, HTN, DM, HLD, and age. She takes 81 mg aspirin and apixaban for prior DVTs. She had a prior stroke that presented with aphasia and mild right sided weakness which did not fully resolve. Last documented NIHSS score was 0. Today she presents with worsening speech upon awakening and no other symptoms. ? Past Medical History: ?Hypertension ?Diabetes Mellitus ?Hyperlipidemia ?Stroke ?Dementia/MCI Other PMH:? 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 Reviewed Social History: Smoking: No Family History: There is no family history of premature cerebrovascular disease pertinent to this consultation ROS : 14 Points Review of Systems was performed and was negative except mentioned in HPI. Past Surgical History: There Is No Surgical History Contributory To Today?s Visit ? Examination: BP(133/62),?Pulse(64), 1A: Level of Consciousness - Alert; keenly responsive?+ 0 1B: Ask Month and Age - 1 Question Right?+ 1 1C: Blink Eyes & Squeeze Hands - Performs Both Tasks?+ 0 2: Test Horizontal Extraocular Movements - Normal?+ 0 3: Test Visual Rene - No Visual Loss?+ 0 4: Test Facial Palsy (Use Grimace if Obtunded) - Normal symmetry?+ 0 5A: Test Left Arm Motor Drift - No Drift for 10 Seconds?+ 0 5B: Test Right Arm Motor Drift - No Drift for 10 Seconds?+ 0 6A: Test Left Leg Motor Drift - No Drift for 5 Seconds?+ 0 6B: Test Right Leg Motor Drift - No Drift for 5 Seconds?+ 0 7: Test Limb Ataxia (FNF/Heel-Waters) - No Ataxia?+ 0 8: Test Sensation - Normal; No sensory loss?+ 0 9: Test Language/Aphasia - Mild-Moderate Aphasia: Some Obvious Changes, Without Significant Limitation?+ 1 10: Test Dysarthria - Normal?+ 0 11: Test Extinction/Inattention - No abnormality?+ 0 NIHSS Score:?2 Pre-Morbid Modified [place] Scale:0 Points = No symptoms at all Spoke with :?ED physician This consult was conducted in real time using interactive audio and video technology. Patient was informed of the technology being used for this visit and agreed to proceed. Patient located in hospital and provider located at home/office setting. Patient is being evaluated for possible acute neurologic impairment and high probability of imminent or life-threatening deterioration. I spent total of 30 minutes providing care to this patient, including time for face to face visit via telemedicine, review of medical records, imaging studies and discussion of findings with providers, the patient and/or family. Dr Clari Crump [facility] For Inpatient follow-up with [facility] physician please call [facility] at . As we are not an outpatient service for any post hospital discharge needs please contact the hospital for assistance. If you have any questions for the [facility] physicians or need to reconsult for clinical or diagnostic changes please contact us via [facility] at . Signature :?Clari Crump ?
--- NOTE | 2025-07-19 09:24 | PC.NURSE ---
PER SISTER, NEGRITA BENNETT, MY SISTER HAS DEMENTIA AND SHE NEVER KNOWS THE DATE. SHE SOMETIMES SHE FORGETS WHO I AM. BUT TODAY SHE WAS MORE CONFUSED THAN USUAL.
[2025-07-19 09:30] LABS: INR 1.0 (0.9-1.3); Partial Thromboplastin Time 23.1 Seconds (22.0-36.0); Prothrombin Time 10.7 Seconds (9.0-12.2)
[2025-07-19 09:48] LABS: Alanine Aminotransferase 10 U/L (10-49); Albumin, Serum 4.1 gm/dL (3.4-4.8); Albumin/Globulin Ratio 1.5 (1.2-2.2); Alkaline Phosphatase 89 U/L (46-116); Anion Gap 7 (7-16); Aspartate Amino Transferase 18 U/L (0-34); BUN/Creatinine Ratio 12 Ratio (12-20); Bilirubin,Total 0.6 mg/dL (0.3-1.2); Blood Urea Nitrogen 14 mg/dL (9-23); Calcium 10.1 mg/dL (8.3-10.6); Calcium (Corrected) 10.1 mg/dL (8.5-10.1); Carbon Dioxide 28.1 mMol/L (20.0-31.0); Chloride 103 mMol/L (98-107); Creatinine (Component) 1.2 mg/dL (0.6-1.3); Estimated Creatinine Clearance 37.2 mL/min (>60); Globulin 2.8 gm/dL (2.3-3.5); Glucose 124 mg/dL (74-106); Magnesium 2.0 mg/dL (1.6-2.6); Osmolality,Calculated 277 (275-295); Potassium 4.9 mMol/L (3.4-5.1); Sodium 138 mMol/L (136-145); Thyroid Stimulating Hormone 2.40 uIU/mL (0.55-4.78); Total Protein 6.9 gm/dL (5.7-8.2); Troponin I < 0.002 ng/mL (0.0-0.045); eGFR 47 See Note
[2025-07-19 09:51] LABS: T4 (Thyroxine) 6.6 mcg/dL (4.5-10.9)
[2025-07-19 11:00] LABS: Collection Type, Urine Clean Catch; RBC,Urine 0 /hpf (0-3)
[2025-07-19 11:26] LABS: Bacteria,Urine 3+; Bilirubin,Urine Negative (Negative); Blood,Urine Negative (Negative); Color,Urine Lt-Yellow (Lt Yel-Yel); Glucose, Urine Negative (Negative); Ketones,Urine Negative (Negative); Leukocyte Esterase,Urine Positive (Negative); Nitrite,Urine Positive (Negative); PH,Urine 6.5 (5.0-7.0); Protein,Urine Negative (Neg - Trace); Specific Gravity,Urine 1.024 (1.001-1.035); Squamous Epithelial Cell,Urine < 1 /hpf (0-5); Urobilinogen,Urine Negative mg/dL (0.0-1.0); WBC,Urine 3 /hpf (0-5)
[2025-07-19 11:27] LABS: Clarity,Urine Hazy (Clear/Hazy); Culture Indicated,Urine Yes
--- NOTE | 2025-07-19 11:46 | XR_ITS ---
Examinations: MRI Brain without intravenous contrast. MRA brain without intravenous contrast. MRA carotids without intravenous contrast 3-D vascular reconstructions Date and time of exam: July 19, 2025, 1328 hours, comparison February 25, 2025, comparison stroke alert CT brain scan today Indication: Stroke alert, onset upper and lower extremity numbness facial droop beginning 30 minutes ago Technique: Multiple axial and sagittal images of the brain have been obtained MRA brain carotid images without contrast obtained, including 3-D postprocessing, vascular maximum intensity projection images Findings: Sellaturc[place] is not enlarged. The optic chiasm and infundibular stalk are not remarkable. Prepontine and interpeduncular cisterns are not enlarged. No localized enlargement of the medulla or girma. Fourth ventricle and cerebellar tonsils normal in position. Subacute hemorrhage is not seen. Fourth ventricle is midline. Mass in the cerebellopontine angle region is not evident. 7th and 8th nerve complexes exhibits symmetry. Globes are symmetrical with no retro-orbital mass. Increased white matter signal prominent Diffusion-weighted images demonstrate no focus of restricted diffusion Mass-effect upon the ventricular system is not identified. MRA carotid images no critical carotid stenoses. MRA brain images no large vessel cerebral occlusions Impression: Negative for acute hemorrhage mass effect or midline shift. No acute infarct. Prominent chronic multi-infarct dementia pattern
--- NOTE | 2025-07-19 11:46 | ECHO_ITS ---
Transthoracic Echo Report Ht (in): 60 Wt (lb): 170 Exam Location: Echo Lab Status: Emergency Commercial Field Inspector: Nadege Hurst Indications: Procedure Performed: BP: 155 / 85 HR: 55 MEASUREMENTS (Male / Female) Normal Values 2D ECHO LV Diastolic Diameter PLAX 3.9 cm 4.2 - 5.9 / 3.9 - 5.3 cm LV Systolic Diameter PLAX 2.9 cm IVS Diastolic Thickness 0.7 cm 0.6 - 1.0 / 0.6 - 0.9 cm LVPW Diastolic Thickness 1.3 cm 0.6 - 1.0 / 0.6 - 0.9 cm LV Relative Wall Thickness 0.5 LVOT Diameter 1.9 cm LA Volume Index 34.0 cm?/m? 16 - 28 cm?/m? Ascending Aorta Diameter 2.8 cm M-MODE AV Cusp Separation MM 1.7 cm DOPPLER AV Peak Velocity 141.0 cm/s AV Peak Gradient 8.0 mmHg AV Mean Gradient 4.0 mmHg AV Velocity Time Integral 35.0 cm LVOT Peak Velocity 96.1 cm/s LVOT Peak Gradient 3.7 mmHg LVOT Velocity Time Integral 23.3 cm LVOT Cardiac Index 1973.0 cm?/min?m? AV Area Cont Eq vti 1.9 cm? AV Area Cont Eq pk 1.9 cm? MV Area PHT 3.7 cm? Mitral E Point Velocity 94.1 cm/s Mitral A Point Velocity 86.3 cm/s Mitral E to A Ratio 1.1 LV E' Lateral Velocity 7.6 cm/s Mitral E to LV E' Lateral Ratio 12.3 LV E' Septal Velocity 7.2 cm/s Mitral E to LV E' Septal Ratio 13.1 TR Peak Velocity 186.7 cm/s TR Peak Gradient 13.9 mmHg PV Peak Velocity 88.0 cm/s PV Peak Gradient 3.1 mmHg FINDINGS Left Ventricle Normal left ventricular size, wall thickness, systolic function with no obvious regional wall motion abnormalities. Grade I diastolic dysfunction. The ejection fraction is visually estimated at 55-60 %. Right Ventricle The right ventricle is normal in size and systolic function. Left Atrium The left atrial cavity size is mildly increased. Right Atrium The right atrium is normal by two-dimensional imaging, color flow and Doppler imaging with no structural abnormalities, no thrombus formation present. Atrial Septum The interatrial septum appears normal with no evidence of a shunt. Aorta The aorta is normal by two-dimensional, color flow and Doppler interrogation. Mitral Valve Mild mitral regurgitation. Mild mitral annular calcification. Aortic Valve Aortic sclerosis without stenosis.trace to mild aortic valve regurgitation. Tricuspid Valve The tricuspid valve is normal by two-dimensional, color flow and Doppler interrogation.There is mild -trace tricuspid valve regurgitation. Pulmonic Valve The pulmonic valve is not well visualized. There is no significant pulmonic valve regurgitation. Vessels The pulmonary artery appears normal. The inferior vena cava pulmonary and hepatic veins appear normal. Pericardium The pericardium is normal by two-dimensional imaging. There is no significant pericardial effusion. CONCLUSIONS Indication: Stroke work up Normal left ventricular size and function. Approximate ejection fraction is 55- 60%. Grade I diastolic dysfunction. Normal Right ventricular size and function. Normal RVSP 20 mm hg Mild TR,MR and mild MAC. Mild dilatd LA Mild to moderate aortic valve sclerosis without stenosis. No pericardial effusion. Previous bubble study 02/25/25 negative Marlon Schmidtumanadisa (Electronically Signed) Final Date: 20 July 2025 10:58
[2025-07-19 11:49] LABS: Amphetamine/Methamp Scrn,U Negative (Negative); Barbiturate Screen,Urine Negative (Negative); Benzodiazepines Screen,Urine Negative (Negative); Benzoylecgonine Screen, Ur Negative (Negative); Fentanyl Screen,Urine Negative (Negative); Opiate Screen,Urine Negative (Negative); THC Screen,Urine Negative (Negative)
[2025-07-19] MEDS: ASPIRIN EC 81 MG TABEC PO (12:07)
[2025-07-19] MEDS: SODIUM CHLORIDE 0.9% 1000 ML 1,000 ML 75 ML IV (12:10)
--- NOTE | 2025-07-19 14:00 | ESHP_ITS ---
<Statement entered by Tiara Alcantar MD - 07/23/25 15:07> I reviewed above note and agree with findings and plans. I have also personally examined the patient with medicine team and went over assessment and plan with medical team including actuarial internship and resident physician. <Statement entered by Bubba Tee MD - 07/19/25 16:38> Patient was examined and case was reviewed with team including attending physician. Note reviewed, I agree with most of its contents and agree with the patient's care as documented by Dr. Godfrey 75-year-old female with past medical history of CVA, hypertension, diabetes, hyperlipidemia, dementia, history of DVTs previously on Eliquis (off Eliquis for 3 months) who was brought here to the ED due to acute onset aphasia and confusion. Patient is poor historian most of the history was taken by the sister who is at the bedside. They went to see a slurry tank operator in his office the patient was suddenly confused, her right arm only normal and she became confused. Sister does state that she has had previous symptoms like this before. Stroke alert was called and patient will be admitted for CVA workup and treatment of acute onset aphasia. Will follow-up imaging studies and in-house neurology recommendations at this time. Patient will be started on high intensity statin, aspirin. Patient has been off Eliquis for the past 3 months and patient does not have history of atrial fibrillation we will give DVT prophylaxis at this time. Case discussed with my attending Dr. Katharine Tee MD PGY-2 Disclaimer: Despite multiple revisions, due to the dictation software being used, the document bellow may not be free of grammatical errors including phonetic/typographic errors. However, this does not deter from our commitment to providing health care in the patient's best interest in mind. Documentation for date of: 07/19/25 HPI History of Present Illness History of present illness: 75-year-old female with a past medical history significant for a cerebrovascular accident in 2021 with residual loss of speech and memory impairment, TIA, hypertension, diabetes mellitus, hyperlipidemia, dementia, and history of deep vein thromboses, brought in by her sister due to acute onset of aphasia and confusion. According to the sister, the patient was in her usual state of health until this morning. While they were at the slurry tank operator's office for an appointment around 8:00 AM, the patient suddenly became confused. Initially suspecting hypoglycemia, the sister gave patient Diet Pepsi, but there was no improvement. Subsequently, the patient?s right arm became limp and her confusion worsened. Sister reports that the patient has had similar episodes in the past with symptoms including aphasia and weakness. The sister confirms that today's presentation is consistent with those prior episodes. The patient?s sister is currently at bedside and provides most of the history since patient is a bad historian. Patient denies chest pain, shortness of breath, nausea, vomiting, or diarrhea. Patient's sister states that patient was taken off Eliquis and put on Aspirin. Patient has no history of atrial fibrillation. However, per chart review patient was discharged on Eliquis 5 mg BID and Aspirin 81 mg on 02/27/2025. ED Course: - Vitals: BP 146/101, HR 62, RR 18, 98.3F, O2 sat 95% on room air. - Labs: Hemoglobin 11.7, glucose 124, hemoglobin A1c 6.2, Troponin I < 0.002; UA positive for nitrite, leukocyte esterase, 3+ bacteria. - Imaging: CXR: no aspiration pneumonia. Head CT: Negative for acute hemorrhage, mass effect or midline shift. Head/Neck CTA: No significant neck arterial stenoses. No cerebral large vessel arterial occlusions or thromboses. EKG: sinus bradycardia. - Treatments: Aspirin 81 mg, NS 1L. Review of Systems Review of Systems Narrative Review of Systems: All 13 review of systems are negative except as listed above in the HPI. Past Medical History Past Medical History Comments PMH COMMENT: Past Medical History: as above Past Surgical History: cholecystectomy Family History: non-contributory Social History: - Smoking: denies - Alcohol: denies - Illicit drugs:denies - Residence: lives in [place] with sister and sister's . Current Medications: pending med recs. Allergies: No known drug allergies. Exam Vital Signs Temp Pulse Resp BP Pulse Ox O2 Del Method 98.4 F 51 L 19 166/55 H 99 Room Air 07/19/25 12:35 07/19/25 12:35 07/19/25 12:35 07/19/25 12:35 07/19/25 12:35 07/19/25 12:35 Narrative Exam Physical Exam General: Alert and oriented x2, no acute distress. HEENT: Normocephalic, atraumatic, mucous membranes moist. Heart: Regular rate and rhythm, no murmurs. Lungs: Clear to auscultation with no wheezing or crackles. Symmetric with good expansion. Abdomen: Soft, nondistended, nontender. No guarding or rebound tenderness. Neurologic: Yes oriented to person, yes oriented to place, no gross neurological deficit, and patient able to move all 4 extremities. Extremities: No edema. Skin: No rash or ecchymoses. Results: Labs 07/20/25 08:09 07/20/25 08:09 Labs: Short CBC 07/19/25 Range/Units 09:06 WBC 8.3 (3.6-11.0) Thou/mm3 Hgb 11.7 L (12.0-16.0) g/dL Hct 37.1 (36.0-46.0) % Plt Count 283 (140-440) Thou/mm3 BMP 07/19/25 09:06 Sodium 138 Potassium 4.9 Chloride 103 Carbon Dioxide 28.1 BUN 14 Creatinine 1.2 Glucose 124 H Calcium 10.1 Cardiac Enzymes 07/19/25 Range/Units 09:06 Troponin I < 0.002 (0.0-0.045) ng/mL Liver Function 07/19/25 Range/Units 09:06 Total Bilirubin 0.6 (0.3-1.2) mg/dL AST 18 (0-34) U/L ALT 10 (10-49) U/L Alkaline Phosphatase 89 (46-116) U/L Albumin 4.1 (3.4-4.8) gm/dL Urine 07/19/25 Range/Units 10:40 Urine Color Lt-Yellow (Lt Yel-Yel) Urine Clarity Hazy (Clear/Hazy) Urine pH 6.5 (5.0-7.0) Ur Specific [place] 1.024 (1.001-1.035) Urine Protein Negative (Neg - Trace) Urine Glucose (UA) Negative (Negative) Quality Measures Quality Measures stroke Suspected type of Stroke: Non Acute Last known well (date): 07/18/25 Last known well (time): 21:00 Tenecteplase given: Reason(s) Tenecteplase not given: Outside the time window not given Rehab services: PT evaluation ordered and Speech Language Pathology eval ordered VTE Prophylaxis: pharmaceutical Antithrombotic by day 2:: not indicated (describe) Statin ordered: >75 y/o moderate or high intensity dose Anticoagulation ordered for A-fib or flutter (current or hx): not indicated Advance care planning discussed with:: patient and sibling Medications Home Medications and Allergies Home Medications ?Medication ?Instructions ?Recorded ?Confirmed ?Type montelukast 10 mg tablet 10 mg PO QPM 02/20/18 History (Singulair) Held on 02/27/25. Instructions: Doctor's Order diphenoxylate-atropine 2.5 1 tab PO QID PRN Diarrhea 1 02/26/25 History mg-0.025 mg tablet famotidine 20 mg tablet 20 mg PO Q12H 08/27/2307/19 History folic acid 1 mg tablet 1 mg PO QDAY 08/27/23 History hydroxyzine HCl 25 mg tablet 50 mg PO HS 08/27/2306/26 History memantine 5 mg tablet 5 mg PO BID 08/27/23 5 History vibegron 75 mg tablet (Gemtesa) 75 mg PO QDAY 08/27/23 07/19/25 History albuterol sulfate 90 mcg/actuation 2 inh inhalation Q4 HR PRN sob 09/06/24 07/19/25 History aerosol inhaler Held on 02/27/25. Instructions: Doctor's Order finerenone 10 mg tablet (Kerendia) 10 mg PO QDAY 09/0607/19/25 History celecoxib 200 mg capsule (Celebrex) 200 mg PO BID 03/1907/19/25 History cholecalciferol (vitamin D3) 50 50 mcg PO QDAY 5 02/26/25 History mcg (2,000 unit) tablet (D3 DOTS) patiromer calcium sorbitex 25.2 25.2 g PO BID 02/26/25 02/26/25 History gram oral powder packet (Veltassa) benzonatate 200 mg capsule 200 mg PO TID 07/19/2506/26 History losartan 25 mg tablet 25 mg PO QDAY 07/19/2507/19 History magnesium oxide 400 mg (241.3 mg 400 mg PO QDAY 07/19/25 History magnesium) tablet multivitamin 1 tab PO QDAY 07/19/2507/19 History Allergies Allergy/AdvReac Type Severity Reaction Status Date / Time No Known Allergies Allergy Verified 07/19/25 08:38 Visit Medications Acetaminophen (Acetaminophen 325 Mg Tablet) 650 mg PO Q6H PRN PRN Reason: Fever >100.4 Stop: 08/18/25 11:45 Acetaminophen (Acetaminophen 500 Mg Tablet) 1,000 mg PO Q6H PRN PRN Reason: PAIN SCALE 1-3 (mild Stop: 08/18/25 11:45 Aspirin (Aspirin Ec 81 Mg Tabec) 81 mg PO QDAY [facility] Stop: 08/18/25 11:59 Last Admin: 07/19/25 12:07 Dose: 81 mg Atorvastatin Calcium (Atorvastatin Calcium 20 Mg Tablet) 80 mg PO HS [facility] Stop: 08/18/25 20:59 Dextrose (Dextrose 50%-Water Inj 50 Ml Syringe) 25 ml IV Q15MIN PRN PRN Reason: BG 50-70 responsive npo pt Stop: 08/18/25 13:52 Dextrose (Dextrose 50%-Water Inj 50 Ml Syringe) 50 ml IV Q15MIN PRN PRN Reason: BG <50 OR BG <70 & pt unresponsive Stop: 08/18/25 13:52 Glucagon (Glucagon Inj 1 Mg Vial) 1 mg IM Q15MIN PRN PRN Reason: BG <70, and no IV access Sodium Chloride (Ns) 1,000 mls @ 75 mls/hr IV .[id number] [facility] Stop: 08/18/25 11:59 Last Admin: 07/19/25 12:10 Dose: 75 mls/hr Insulin Human Lispro (Insulin Lispro (Admelog) 1 Unit/0.01 Ml Unit) 0 unit SC AC [facility]; Protocol Stop: 08/18/25 16:59 Labetalol HCl (Labetalol Inj 5 Mg/Ml Vial 20 Ml) 10 mg IVP Q6H PRN PRN Reason: SBP>220, DBP>110 Stop: 08/18/25 11:45 Ondansetron HCl (Ondansetron Inj 2 Mg/Ml Inj 2 Ml) 4 mg IVP Q6H PRN; Protocol PRN Reason: NAUSEA OR VOMITING Stop: 08/18/25 11:45 Assessment & Plan Plan 75 year-old female with past medical history of CVA (2019), TIA, dementia, GERD, hypertension, diabetes mellitus type 2 [id number], hyperlipidemia, history of DVTs admitted on 07/19 for worsening confusion and right sided weakness. #Acute Aphasia #Transient right sided weakness DDX: TIA vs recurreance of stroke vs unknown etiology. History of CVA in 2019. TIA in 2023. Patient was on Xarelto and switched to Eliquis and has been off of it for 3 months now. No history of atrial fibrillation. No smoking history. Vascular risk factors: prior stroke, HTN, DM, HLD and age. DDX: new ischemic stroke vs TIA vs seizure vs recurrence of prior CVA deficits secondary to systemic problem (toxic, metabolic, or infectious) vs vascular dementia. Initial NIHSS: 0 Initial BP: 146/101 EKG: Sinus bradycardia Initial glucose: 124 Urine drug screen: negative Hemoglobin A1c: 6.2 Lipids: pending TSH: 2.40 Troponin: < 0.002 CT head w/o: Negative for acute hemorrhage, mass effect or midline shift. CTA head/neck w/: No significant neck arterial stenoses. No cerebral large vessel arterial occlusions or thromboses. MRI/MRA w/ and w/o: Negative for acute hemorrhage mass effect or midline shift. No acute infarct. Prominent chronic multi-infarct dementia pattern. Meds given: Aspirin 81 mg, Atorvastatin 80 mg ABCD2 score (risk of stroke after suspected TIA): 6 (high risk). ASCVD: pending lipid labs to calculate. TTE: pending Previous TTE on 02/25/2025: negative without any evidence of any PFO or ASD. Normal LV function and size with an EF of 55 to 60%. Stage I diastolic dysfunction. Mild LVH. Normal RV size and function with normal RVSP. Mild TR. Mild LA dilatation. Mild MR and mild MAC. Mild to moderate aortic valve sclerosis without stenosis. Plans: - Admit to telemetry floor. - Continue aspirin 81 mg. - Continue atorvastatin 80 mg. - DVT ppx with heparin. - Neuro Checks (Q4). - Neurology consulted - appreciate recs. - NPO pending bedside swallow study. - Head of Bed 30 Degrees. - Allow for permissive HTN, NO TPA given, Systolic <220 or Diastolic <120 or suspected end organ failure. - Nicardipine or Clevidipine PRN if need be, give if SBP >220 or DBP >120. Avoid beta blockers - can exacerbate bradycardia. - Maintain euglycemia and normal temperature. - Aspiration precautions. - Swallow evaluation. - Speech evaluation. - Physical therapy referral. #Urinary tract infection UA: positive for nitrites, leukocyte esterase and bacteria. Likely contributing to patient's confusion. Plan: - Start IV Ceftriaxone 1 gram. - Pending urine culture. - Adjust antibiotics based on culture and sensitivity results. - Monitor for any signs of sepsis or organ dysfunction. #Diabetes Mellitus Type II, non-insulin dependent Hemoglobin 6.2. Per chart review, patient was on Metformin in the past. Plan: -Sliding Scale Lispro. -Monitor Fasting Blood Glucose. #Sinus bradycardia Seen on previous EKGs; currently asymptomatic. Follows with Dr. Paz outpatient. Plan: -Monitor on telemetry. -Avoid beta-blocking or rate slowing agents. -Outpatient follow-up with cardiology. #History of DVT Known history of DVT. Formerly on Xarelto but was switched to Eliquis. Have been off of Eliquis for 3 months now. Per patient's sister, Eliquis was stopped and started aspirin. However, per chart review patient was discharged on Eliquis 5 mg BID and Aspirin 81 mg on 02/27/2025. No history of atrial fibrillation. Plan: - Heparin DVT prophylaxis while inpatient. #Dementia Likely secondary to vascular given past medical history of CVA in 2019 with slow decline in memory since then. Home medication of memantine, patient's sister stated that it was initially prescribed by neurologist. MRI (07/19): Negative for acute hemorrhage mass effect or midline shift. No acute infarct. Prominent chronic multi-infarct dementia pattern. Plan - Pending med recs - will continue home medication. Health Maintenance DVT prophylaxis: Heparin 5,000 U subQ GI prophylaxis: none Diet: Diet dysphasia 2 [place]: Pure wick Lines: Peripheral IV CODE STATUS: Limited code - no intubation, OK chest compressions Patient plan of care was discussed with the senior resident, Dr. Rudy Tee, and attending physician, Dr. Alcantar. Bleinda Godfrey, DO PGY-1
[2025-07-19 14:37] LABS: Glucose Estimated Average 131 mg/dL (80-131); Hemoglobin A1C 6.2 % Hgb (4.8-6.0)
[2025-07-19] MEDS: cefTRIAXone/D5w 1gm IV premix 1 GM/50 ML BAG IV (16:15)
--- NOTE | 2025-07-19 17:03 | PC.NURSE ---
REPORT CALLED TO NATALIIA VALENCIA. NO FURTHER QUESTIONS AT THIS TIME. PATIENT WILL BE TAKEN TO ROOM 264.
--- NOTE | 2025-07-19 18:41 | PC.NURSE ---
Due to patient being a poor historian, did not get to finish general admission assessment, past medical hx, med rec. Patient states that her sister can answer questions because she doesn't know. Attempted to call sister Tracee but did not reach her.
--- NOTE | 2025-07-19 20:39 | PC.NURSE ---
ATTEMPTED TO CALL PT'S SISTER NEGRITA FOR HOME MED AND VERIFY ELIQUIS BUT NO ANSWER.
--- NOTE | 2025-07-19 20:50 | ESPR_ITS ---
Documentation for date of: 07/19/25 Subjective Subjective Interval history: Patient was in telemetry today. She is back to baseline, intermittently confused but better than on admission. Exam - Neurology Vital Signs Temp Pulse Resp BP Pulse Ox O2 Del Method 97.7 F 60 19 165/86 H 93 L Room Air 07/19/25 18:08 07/19/25 18:08 07/19/25 18:08 07/19/25 18:08 07/19/25 18:08 07/19/25 18:08 Narrative Exam GENERAL APPEARANCE: Well hydrated, well-nourished in no acute distress. HEENT: Normocephalic, atraumatic, extraocular movements intact. Pupils: Equal reacting to light and accommodation, tympanic membranes are bilaterally intact. There is no bulge or retraction. Throat without erythema or exudate. Moist oral mucosa. NECK: Supple, no JVD or bruits. CARDIOVASULAR: Heart: S1, S2 heard, regular without S3-S4 or murmur no rubs or gallops. LUNGS/CHEST: Clear to auscultation bilaterally. No rails, rhonchi, or wheezing. Normal inspection. ABDOMEN: Soft, nontender, with normal bowel sounds. No pulsatile masses. No rebound, rigidity, or guarding. Normal inspection and palpation. EXTREMITIES: Normal inspection and palpation. No edema, clubbing or cyanosis. SKIN: Warm and dry without rashes. Normal inspection. MUSCULOSKELETAL: No cervical, thoracic, lumbar or midline bony tenderness. Normal inspection. NEURO: Alert, awake and oriented x3. Cranial nerves: II through XII grossly intact. Speech and language: Significant language impairment noted. motor system: Tone and bulk: Normal: Strength: 5 out of 5 in all 4 extremities; No pronator drift noted. Deep tendon reflexes: 2+ bilaterally symmetrical. Plantar reflex: Downgoing bilaterally. Sensory system: Intact to all modalities of sensation bilaterally. Coordination: Intact to etysre-tbot-llciw and nihq-jexy-znun test bilaterally. No ataxia, no dysmetria, or dysdiadochokinesia noted. No intention tremors noted. Gait: Normal. Toe, heel, tandem walk all are normal. Romberg: Negative. No signs of meningeal irritation noted. PSYCHIATRIC: Normal mood and affect. Denies homicidal or suicidal ideation. Objective Labs 07/20/25 08:09 07/20/25 08:09 Labs: Laboratory Results - last 24 hr 07/19/25 07/19/25 09:06 10:40 WBC 8.3 RBC 4.44 Hgb 11.7 L Hct 37.1 MCV 84 MCH 26.4 MCHC 31.5 RDW Std Deviation 51.4 H Plt Count 283 Neut % (Auto) 65 Lymph % (Auto) 22 [place] % (Auto) 10 Eos % (Auto) 3 Baso % (Auto) 1 Neut # (Auto) 5.3 Lymph # (Auto) 1.9 [place] # (Auto) 0.8 Eos # (Auto) 0.2 Baso # (Auto) 0.1 Immature Gran # (Auto) 0.02 H Absolute Nucleated RBC 0.00 Immature Gran % 0 Nucleated RBC % 0 PT 10.7 INR 1.0 APTT 23.1 Sodium 138 Potassium 4.9 Chloride 103 Carbon Dioxide 28.1 Anion Gap 7 BUN 14 Creatinine 1.2 Estim Creat Clear Calc 37.2 L eGFR 47 L BUN/Creatinine Ratio [address] Glu mg/dL 131 Hemoglobin A1c 6.2 H Calculated Osmolality 277 Calcium 10.1 Corrected Calcium 10.1 Magnesium 2.0 Total Bilirubin 0.6 AST 18 ALT 10 Alkaline Phosphatase 89 Troponin I < 0.002 Total Protein 6.9 Albumin 4.1 Globulin 2.8 Albumin/Globulin Ratio 1.5 TSH 2.40 Thyroxine (T4) 6.6 Ur Collection Type Clean Catch Urine Color Lt-Yellow Urine Clarity Hazy Urine pH 6.5 Ur Specific [place] 1.024 Urine Protein Negative Urine Glucose (UA) Negative Urine Ketones Negative Urine Blood Negative Urine Nitrite Positive Urine Bilirubin Negative Urine Urobilinogen (Auto) Negative Ur Leukocyte Esterase Positive Urine RBC 0 Urine WBC 3 Ur Squamous Epith Cells < 1 Urine Bacteria 3+ A Ur Culture Indicated? Yes Urine Opiates Screen Negative Urine Fentanyl Screen Negative Ur Barbiturates Screen Negative U Amphetamin/Meth Scrn Negative U Benzodiazepines Scrn Negative U Cocaine Metab Screen Negative U Marijuana (THC) Screen Negative Assessment & Plan Additional Assessment & Plan Additional Plan: (1) Stroke-like symptom: Status: Resolved Assessment and plan: Continue with aspirin and statin (2) Generalized weakness: Status: Resolved (3) Vascular dementia: Status: Acute Assessment and plan: MRI brain findings are consistent with vascular dementia, no acute infarction noted continue with the vascular risk factors control along with aspirin. Noted that she is on Eliquis for DVT. Continue to monitor her closely for any progression. Continue with memantine 5mg bid. FU with me in 2 weeks, stable for dc home.
[2025-07-19] MEDS: ATORVASTATIN CALCIUM 20 MG TABLET 80 MG PO (21:04)
[2025-07-19] MEDS: MEMANTINE HCL 5 MG TABLET PO (21:04)
[2025-07-19] MEDS: HEPARIN SOD INJ 5000 UNIT/ML VIAL SC (21:04)
--- NOTE | 2025-07-19 21:25 | PD.RESCONSUL ---
HPI Data of Consult Requesting Physician: Tiara Alcantar MD Admitting Provider: Tiara Alcantar MD Attending Provider: Tiara Alcantar MD Primary Care Provider: Gurwinder Nicole Consult Narrative History of present illness: 75F with MHx of dysphasia and memory impairment after stroke in 2021, HTN, DM, HLD, dementia, asthma, COPD on home O2, FANNIE on CPAP, and hx of DVT had gone to her cardiology appointment in the morning, when she was noticed to be confused, unable to speak clearly, and weak in her right arm. Patient is extablished with Dr. Paz?s cardiology clinic. Patient had been recommended to start aspirin 81mg QD with Eliquis 5mg BID given her hx of strokes and DVT on 08/26/[address] Paz. However, sister stated that the patient had not been taking Eliquis despite repeated recommendations on multiple visits. On clinic visit on 07/08/2025, patient reported chest congestion, with respiratory secretions, and cough. She denies chest pain, pressure, SOB, N/V/D. ? ED Course: Vitals: BP 146/101, HR 62, RR 18, 98.3F, O2 sat 95% on room air. Labs: Hemoglobin 11.7, glucose 124, hemoglobin A1c 6.2, Troponin I < 0.002; UA positive for nitrite, leukocyte esterase, 3+ bacteria. CXR unremarkable. CT head was negative for acute hemorrhage, mass effect, or midline shift. CTA head and neck showed no significant arterial stenosis. No cerebral large vessel arterial occlusions or thromboses. EKG revealed sinus bradycardia. Patient was given aspirin 81mg. PMHx: dysphasia and memory impairment after stroke in 2021, HTN, DM, HLD, dementia, asthma, COPD on home O2, FANNIE on CPAP, and hx of DVT PSHx: cholecystectomy 2009 FHx: father had cirrhosis and of lung ca. Mother: DM, ca, strokes which paralyzed her left side. SHx: Denies tobacco use, does not drink alcohol, denies illicit drug use. Denies caffeine intake. Lives in [place] with sister and rebekah's . cc:: cc: Tiara Alcantar MD Exam Vital Signs Temp Pulse Resp BP Pulse Ox O2 Del Method 97.7 F 56 L 16 146/82 H 98 Room Air 07/19/25 20:00 07/19/25 20:00 07/19/25 20:00 07/19/25 20:00 07/19/25 20:00 07/19/25 20:00 Narrative Exam General: Alert and oriented x3, No apparent distress. Skin: Intact, Warm, no rashes. HEENT: Normocephalic, Atraumatic. Normal neck range of motion, Supple. Trachea midline. Respiratory: Lungs are clear to auscultation, Breath sounds are equal bilaterally with equal chest expansion. Cardiovascular: RRR, normal S1, S2, No murmurs. Distal pulses 2+ Abdomen: Abdomen soft, non-distended, without erythema, or lesions. Normotensive bowel sounds x4. Percussion tympanic. Palpation nontender in all four quadrants. No organomagely. No guarding or rebound present. Musculoskeletal/Extremities: No erythema, swelling, tenderness of any joints. No edema of BLE. DP pulses +2/3 b/l. Full active ROM of all four extremities. Neurologic: NEURO: Oriented x3, cranial nerves II to XII grossly intact. Muscle strength 5/5 on UE and LE b/l, Moves extremities x4. Sensation intact to gross touch along C6-T1 and L2-S1 dermatomes. No focal neurologic deficits noted Psych: Thoughts linear and responses appropriate. Results Labs 07/19/25 09:06 07/19/25 09:06 Labs: Short CBC 07/19/25 Range/Units 09:06 WBC 8.3 (3.6-11.0) Thou/mm3 Hgb 11.7 L (12.0-16.0) g/dL Hct 37.1 (36.0-46.0) % Plt Count 283 (140-440) Thou/mm3 BMP 07/19/25 09:06 Sodium 138 Potassium 4.9 Chloride 103 Carbon Dioxide 28.1 BUN 14 Creatinine 1.2 Glucose 124 H Calcium 10.1 Cardiac Enzymes 07/19/25 Range/Units 09:06 Troponin I < 0.002 (0.0-0.045) ng/mL Liver Function 07/19/25 Range/Units 09:06 Total Bilirubin 0.6 (0.3-1.2) mg/dL AST 18 (0-34) U/L ALT 10 (10-49) U/L Alkaline Phosphatase 89 (46-116) U/L Albumin 4.1 (3.4-4.8) gm/dL Urine 07/19/25 Range/Units 10:40 Urine Color Lt-Yellow (Lt Yel-Yel) Urine Clarity Hazy (Clear/Hazy) Urine pH 6.5 (5.0-7.0) Ur Specific [place] 1.024 (1.001-1.035) Urine Protein Negative (Neg - Trace) Urine Glucose (UA) Negative (Negative) Quality Measures Quality Measures stroke Suspected type of Stroke: Non Acute Last known well (date): 07/18/25 Last known well (time): 21:00 Tenecteplase given: Reason(s) Tenecteplase not given: Outside the time window not given Rehab services: Speech Language Pathology eval ordered VTE Prophylaxis: pharmaceutical Antithrombotic by day 2:: not indicated (describe) Statin ordered: <75 y/o high intensity dose Anticoagulation ordered for A-fib or flutter (current or hx): not indicated Advance care planning discussed with:: patient Medications Home Medications and Allergies Home Medications ?Medication ?Instructions ?Recorded ?Confirmed ?Type montelukast 10 mg tablet 10 mg PO QPM 02/20/18 02/27/25 History (Singulair) Held on 02/27/25. Instructions: Doctor's Order diphenoxylate-atropine 2.5 1 tab PO QID PRN Diarrhea 08/27/23 02/26/25 History mg-0.025 mg tablet famotidine 20 mg tablet 20 mg PO Q12H 08/27/23 07/19/25 History folic acid 1 mg tablet 1 mg PO QDAY 08/27/23 07/19/25 History hydroxyzine HCl 25 mg tablet 50 mg PO HS 08/27/23 07/19/25 History memantine 5 mg tablet 5 mg PO BID 08/27/23 07/19/25 History vibegron 75 mg tablet (Gemtesa) 75 mg PO QDAY 08/27/23 07/19/25 History albuterol sulfate 90 mcg/actuation 2 inh inhalation Q4HR PRN sob 09/06/24 07/19/25 History aerosol inhaler Held on 02/27/25. Instructions: Doctor's Order apixaban 5 mg tablet (Eliquis) 5 mg PO BID 09/06/24 02/26/25 History finerenone 10 mg tablet (Kerendia) 10 mg PO QDAY 09/06/24 07/19/25 History celecoxib 200 mg capsule (Celebrex) 200 mg PO BID 02/26/25 07/19/25 History cholecalciferol (vitamin D3) 50 50 mcg PO QDAY 02/26/25 02/26/25 History mcg (2,000 unit) tablet (D3 DOTS) patiromer calcium sorbitex 25.2 25.2 g PO BID 02/26/25 02/26/25 History gram oral powder packet (Veltassa) benzonatate 200 mg capsule 200 mg PO TID 07/19/25 07/19/25 History losartan 25 mg tablet 25 mg PO QDAY 07/19/25 07/19/25 History magnesium oxide 400 mg (241.3 mg 400 mg PO QDAY 07/19/25 07/19/25 History magnesium) tablet multivitamin 1 tab PO QDAY 07/19/25 07/19/25 History Allergies Allergy/AdvReac Type Severity Reaction Status Date / Time No Known Allergies Allergy Verified 07/19/25 08:38 Visit Medications Acetaminophen (Acetaminophen 325 Mg Tablet) 650 mg PO Q6H PRN PRN Reason: Fever >100.4 Stop: 08/18/25 11:45 Acetaminophen (Acetaminophen 500 Mg Tablet) 1,000 mg PO Q6H PRN PRN Reason: PAIN SCALE 1-3 (mild Stop: 08/18/25 11:45 Aspirin (Aspirin Ec 81 Mg Tabec) 81 mg PO QDAY MATT Stop: 08/18/25 11:59 Last Admin: 07/19/25 12:07 Dose: 81 mg Atorvastatin Calcium (Atorvastatin Calcium 20 Mg Tablet) 80 mg PO HS MATT Stop: 08/18/25 20:59 Last Admin: 07/19/25 21:04 Dose: 80 mg Dextrose (Dextrose 50%-Water Inj 50 Ml Syringe) 25 ml IV Q15MIN PRN PRN Reason: BG 50-70 responsive npo pt Stop: 08/18/25 13:52 Dextrose (Dextrose 50%-Water Inj 50 Ml Syringe) 50 ml IV Q15MIN PRN PRN Reason: BG <50 OR BG <70 & pt unresponsive Stop: 08/18/25 13:52 Glucagon (Glucagon Inj 1 Mg Vial) 1 mg IM Q15MIN PRN PRN Reason: BG <70, and no IV access Heparin Sodium (Porcine) (Heparin Sod Inj 5000 Unit/Ml Vial) 5,000 unit SC Q8HR [facility] Stop: 08/02/25 21:59 Last Admin: 07/19/25 21:04 Dose: 5,000 unit Sodium Chloride (Ns) 1,000 mls @ 75 mls/hr IV .[id number] [facility] Stop: 08/18/25 11:59 Last Admin: 07/19/25 12:10 Dose: 75 mls/hr Ceftriaxone Sodium/Dextrose (Rocephin/D5w 1gm Iv Premix) 1 gm in 50 mls @ 100 mls/hr IV QDAY [facility] Stop: 07/26/25 15:20 Last Infusion: 07/19/25 16:45 Dose: Infused Insulin Human Lispro (Insulin Lispro (Admelog) 1 Unit/0.01 Ml Unit) 0 unit SC AC [facility]; Protocol Stop: 08/18/25 16:59 Last Admin: 07/19/25 17:02 Dose: Not Given Labetalol HCl (Labetalol Inj 5 Mg/Ml Vial 20 Ml) 10 mg IVP Q6H PRN PRN Reason: SBP>220, DBP>110 Stop: 08/18/25 11:45 Memantine (Memantine Hcl 5 Mg Tablet) 5 mg PO BID [facility] Stop: 08/18/25 20:59 Last Admin: 07/19/25 21:04 Dose: 5 mg Ondansetron HCl (Ondansetron Inj 2 Mg/Ml Inj 2 Ml) 4 mg IVP Q6H PRN; Protocol PRN Reason: NAUSEA OR VOMITING Stop: 08/18/25 11:45 Assessment & Plan Plan 75F with MHx of dysphasia and memory impairment after stroke in 2021, HTN, DM, HLD, dementia, asthma, COPD on home O2, FANNIE on CPAP, and hx of DVT had gone to her cardiology appointment in the morning, when she was noticed to be confused, unable to speak clearly, and weak in her right arm admitted on 07/19 for worsening confusion and right sided weakness. #Acute Dysphasia #Transient right sided weakness #h/o CVA in 2019. TIA in 2023. Patient was on Xarelto and switched to Eliquis, but has not been taking it for 3mo, unfortunately, despite documented repeated recommendations by her electric installer Dr. Paz. She already had a baseline of cognitive impairment with inability to perform ADL and dysphasia, but was noted to be worsening in those domains and increasingly confused prior to presentation. Initial BP 146/101, glc 124, HgbA1c 6.2, TSH 2.4 EKG: Sinus bradycardia UDS negative CT head w/o: Negative for acute hemorrhage, mass effect or midline shift. CTA head/neck w/: No significant neck arterial stenoses. No cerebral large vessel arterial occlusions or thromboses. MRI/MRA w/o: Negative for acute hemorrhage mass effect or midline shift. No acute infarct. Prominent chronic multi-infarct dementia pattern. Meds given: Aspirin 81 mg, Atorvastatin 80 mg ABCD2 score (risk of stroke after suspected TIA): 6 (high risk). ASCVD: pending lipid labs to calculate. TTE: pending Previous TTE on 02/25/2025: negative without any evidence of any PFO or ASD. Normal LV function and size with an EF of 55 to 60%. Stage I diastolic dysfunction. Mild LVH. Normal RV size and function with normal RVSP. Mild TR. Mild LA dilatation. Mild MR and mild MAC. Mild to moderate aortic valve sclerosis without stenosis. Nuclear Stress Test (11/24/2024): Normal myocardial perfusion study without evidence of inducible ischemia. There is an area of decreased activity in the inferior Left ventricle at rest and post-stress with normal segmental contractility, highly suggestive of diaphragmatic attenuation. EF 70%. TID and wall motion are normal. Plans according to internal medicine team: - Admit to telemetry floor. - Continue aspirin 81 mg. - Continue atorvastatin 80 mg. - Neuro Checks (Q4). - Neurology consulted - appreciate recs. - Head of Bed 30 Degrees. - Allow for permissive HTN, NO TPA given, Systolic <220 or Diastolic <120 or suspected end organ failure. - Nicardipine or Clevidipine PRN if need be, give if SBP >220 or DBP >120. Avoid beta blockers - can exacerbate bradycardia. - Maintain euglycemia and normal temperature. #History of DVT Known history of DVT. Formerly on Xarelto but was switched to Eliquis on 08/26/2024. Patient has not been taking Eliquis for 3mo apparently, unfortunately despite verbalized and documented recommendations by electric installer Dr. Paz. Plan: - Heparin DVT prophylaxis while inpatient. - Patient should be discharged on Eliquis 5mg BID in addition to ASA (81mg as above for recurrent stroke prophylaxis) #Urinary tract infection UA: positive for nitrites, leukocyte esterase and bacteria. - Start IV Ceftriaxone 1 gram. #Diabetes Mellitus Type II, non-insulin dependent HgbA1c 6.2. -Sliding Scale Lispro. #Sinus bradycardia, asymptomatic -Avoid beta-blocking or rate slowing agents. #Dementia, likely vascular type h/o CVA in 2019 with slow decline in memory since then. Home medication of memantine by her neurologist #COPD on home O2 #FANNIE on CPAP Thank you for cardiology consultation. We appreciate the opportunity to participate in this patient's care. Will continue to follow-up on this patient This case was discussed with my attending physician, Dr. Paz, crossing tender. Dread Machuca, PGY I Attending Provider Attestation/Addendum I have personally seen and examined the patient separately on the above date of service and discussed the plan of care with the resident. I reviewed the resident Dr. Canada consultation note and agree with the resident findings and plan in the note above and have also edited the documentation to reflect my findings and plan. Marlon Paz M.D. Interventional Cardiology
[2025-07-20] VITALS: BP 118/79; PULSE 48; PULSE 55; RESP 18; TEMP 36.7; O2SAT 98
--- NOTE | 2025-07-20 00:18 | PC.NURSE ---
DR MCELROY NOTIFIED PT'S HR WENT DOWN BRIEFLY TO 44 BPM, SINUS NIEVES. PT SLEEPING AT THAT TIME, AWAKEN EASILY TO CALL OF NAME, PT DENIES DISCOMFORT, GCS 14.BP 118/79. NO NEW ORDER
[2025-07-20] MEDS: SODIUM CHLORIDE 0.9% 1000 ML 1,000 ML 75 ML IV (01:11)
[2025-07-20 04:00] VITALS: BP 141/64; PULSE 47; PULSE 50; RESP 16; TEMP 36.1; O2SAT 96
[2025-07-20] MEDS: HEPARIN SOD INJ 5000 UNIT/ML VIAL SC (05:01)
[2025-07-20 05:36] VITALS: BMI 33.2
[2025-07-20 08:00] VITALS: BP 141/62; PULSE 49; PULSE 60; RESP 19; TEMP 36.3; O2SAT 99
[2025-07-20 08:56] LABS: Basophils # (Auto) 0.1 Thou/mm3 (0.0-0.2); Basophils % (Auto) 1 % (0-2.5); Eosinophils # (Auto) 0.3 Thou/mm3 (0.0-0.5); Eosinophils % (Auto) 5 % (0-10); Hematocrit 36.1 % (36.0-46.0); Hemoglobin 11.2 g/dL (12.0-16.0); Immature Granulocytes Auto 0.01 Thou/mm3 (0.00-0.00); Lymphocytes # (Auto) 1.6 Thou/mm3 (1.0-4.8); Lymphocytes % (Auto) 28 % (10-50); Mean Corpuscular HGB Conc 31.0 g/dl (31.0-37.0); Mean Corpuscular Hemoglobin 25.9 pg (25.0-35.0); Mean Corpuscular Volume 84 fL (80-100); Monocytes # (Auto) 0.6 Thou/mm3 (0.0-0.8); Monocytes % (Auto) 10 % (0-12); Neutrophils # (Auto) 3.3 Thou/mm3 (1.8-7.7); Neutrophils % (Auto) 56 % (37-80); Nucleated Red Blood Cell # 0.00 Thou/mm3 (0.00-0.00); Nucleated Red Blood Cell % 0 /100 WBC (0); Platelet Count 278 Thou/mm3 (140-440); RDW Standard Deviation 52.2 fL (36.4-46.3); Red Blood Count 4.32 Miln/mm3 (4.00-5.20); White Blood Count 5.8 Thou/mm3 (3.6-11.0)
[2025-07-20 09:21] LABS: Albumin, Serum 3.7 gm/dL (3.4-4.8); Albumin/Globulin Ratio 1.4 (1.2-2.2); Alkaline Phosphatase 81 U/L (46-116); Anion Gap 10 (7-16); Aspartate Amino Transferase 16 U/L (0-34); BUN/Creatinine Ratio 11 Ratio (12-20); Bilirubin,Total 0.8 mg/dL (0.3-1.2); Blood Urea Nitrogen 11 mg/dL (9-23); Calcium 9.8 mg/dL (8.3-10.6); Calcium (Corrected) 10.0 mg/dL (8.5-10.1); Carbon Dioxide 27.2 mMol/L (20.0-31.0); Cardiac Risk Estimate 2.7 RATIO (3.7-5.6); Chloride 105 mMol/L (98-107); Cholesterol 159 mg/dL (132-200); Creatinine (Component) 1.0 mg/dL (0.6-1.3); Estimated Creatinine Clearance 44.6 mL/min (>60); Globulin 2.6 gm/dL (2.3-3.5); Glucose 94 mg/dL (74-106); HDL Cholesterol 60 mg/dL (40-60); LDL Cholesterol,Calculated 77 mg/dL (0-130); Magnesium 1.7 mg/dL (1.6-2.6); Osmolality,Calculated 282 (275-295); Phosphorous 3.8 mg/dL (2.4-5.1); Potassium 4.0 mMol/L (3.4-5.1); Sodium 142 mMol/L (136-145); Thyroid Stimulating Hormone 2.69 uIU/mL (0.55-4.78); Total Protein 6.3 gm/dL (5.7-8.2); Triglycerides 112 mg/dL (30-150); eGFR 59 See Note
[2025-07-20 09:24] LABS: Alanine Aminotransferase 8 U/L (10-49)
[2025-07-20] MEDS: MEMANTINE HCL 5 MG TABLET PO (09:29)
[2025-07-20] MEDS: ASPIRIN EC 81 MG TABEC PO (09:29)
[2025-07-20] MEDS: cefTRIAXone/D5w 1gm IV premix 1 GM/50 ML BAG IV (09:29)
--- NOTE | 2025-07-20 09:35 | PD.RESPRO ---
Documentation for date of: 07/20/25 Exam Vital Signs Temp Pulse Resp BP Pulse Ox O2 Del Method 97.3 F 49 L 19 141/62 H 99 Room Air 07/20/25 08:00 07/20/25 08:00 07/20/25 08:00 07/20/25 08:00 07/20/25 08:00 07/20/25 08:00 Objective Labs 07/20/25 08:09 07/20/25 08:09 Labs: Laboratory Results - last 24 hr 07/19/25 07/19/25 07/20/25 09:06 10:40 08:09 WBC 5.8 RBC 4.32 Hgb 11.2 L Hct 36.1 MCV 84 MCH 25.9 MCHC 31.0 RDW Std Deviation 52.2 H Plt Count 278 Neut % (Auto) 56 Lymph % (Auto) 28 Carter % (Auto) 10 Eos % (Auto) 5 Baso % (Auto) 1 Neut # (Auto) 3.3 Lymph # (Auto) 1.6 Carter # (Auto) 0.6 Eos # (Auto) 0.3 Baso # (Auto) 0.1 Immature Gran # (Auto) 0.01 H Absolute Nucleated RBC 0.00 Immature Gran % 0 Nucleated RBC % 0 Sodium 138 142 Potassium 4.9 4.0 D Chloride 103 105 Carbon Dioxide 28.1 27.2 Anion Gap 7 10 BUN 14 11 Creatinine 1.2 1.0 Estim Creat Clear Calc 37.2 L 44.6 L eGFR 47 L 59 L BUN/Creatinine Ratio 12 11 L Glucose [address] Glu mg/dL 131 Hemoglobin A1c 6.2 H Calculated Osmolality 277 282 Calcium 10.1 9.8 Corrected Calcium 10.1 10.0 Phosphorus 3.8 Magnesium 2.0 1.7 Total Bilirubin 0.6 0.8 AST 18 16 ALT 10 8 L Alkaline Phosphatase 89 81 Troponin I < 0.002 Total Protein 6.9 6.3 Albumin 4.1 3.7 Globulin 2.8 2.6 Albumin/Globulin Ratio 1.5 1.4 Triglycerides 112 Cholesterol 159 LDL Cholesterol, Calc 77 HDL Cholesterol 60 Cholesterol/HDL Ratio 2.7 L TSH 2.40 2.69 Thyroxine (T4) 6.6 Ur Collection Type Clean Catch Urine Color Lt-Yellow Urine Clarity Hazy Urine pH 6.5 Ur Specific [place] 1.024 Urine Protein Negative Urine Glucose (UA) Negative Urine Ketones Negative Urine Blood Negative Urine Nitrite Positive Urine Bilirubin Negative Urine Urobilinogen (Auto) Negative Ur Leukocyte Esterase Positive Urine RBC 0 Urine WBC 3 Ur Squamous Epith Cells < 1 Urine Bacteria 3+ A Ur Culture Indicated? Yes Urine Opiates Screen Negative Urine Fentanyl Screen Negative Ur Barbiturates Screen Negative U Amphetamin/Meth Scrn Negative U Benzodiazepines Scrn Negative U Cocaine Metab Screen Negative U Marijuana (THC) Screen Negative Quality Measures Quality Measures stroke Suspected type of Stroke: Non Acute Last known well (date): 07/18/25 Last known well (time): 21:00 Tenecteplase given: Reason(s) Tenecteplase not given: Outside the time window not given Assessment & Plan Assessment Current Active Medications: Generic Name Dose Route Start Last Admin Trade Name Freq PRN Reason Stop Dose Admin Acetaminophen 650 mg 07/19/25 11:46 Acetaminophen 325 Mg Tablet PO 08/18/25 11:45 Q6H PRN Fever >100.4 Acetaminophen 1,000 mg 07/19/25 11:46 Acetaminophen 500 Mg Tablet PO 08/18/25 11:45 Q6H PRN PAIN SCALE 1-3 (mild Apixaban 2.5 mg 07/20/25 21:00 Apixaban 2.5 Mg Tablet PO 08/10/25 20:59 BID MATT Aspirin 81 mg 07/19/25 12:00 07/20/25 09:29 Aspirin Ec 81 Mg Tabec PO 08/18/25 11:59 81 mg QDAY MATT Administration Atorvastatin Calcium 80 mg 07/19/25 21:00 07/19/25 21:04 Atorvastatin Calcium 20 Mg Tablet PO 08/18/25 20:59 80 mg HS MATT Administration Dextrose 25 ml 07/19/25 13:53 Dextrose 50%-Water Inj 50 Ml Syringe IV 08/18/25 13:52 Q15MIN PRN BG 50-70 responsive npo pt Dextrose 50 ml 07/19/25 13:53 Dextrose 50%-Water Inj 50 Ml Syringe IV 08/18/25 13:52 Q15MIN PRN BG <50 OR BG <70 & pt unresponsive Glucagon 1 mg 07/19/25 13:53 Glucagon Inj 1 Mg Vial IM Q15MIN PRN BG <70, and no IV access Sodium Chloride 1,000 mls @ 75 mls/hr 07/19/25 12:00 07/20/25 01:11 Ns IV 08/18/25 11:59 75 mls/hr .[id number] MATT Administration Ceftriaxone Sodium/Dextrose 1 gm in 50 mls @ 100 mls/hr 07/19/25 15:21 07/20/25 09:29 Rocephin/D5w 1gm Iv Premix IV 07/26/25 15:20 100 mls/hr QDAY MATT Administration Insulin Human Lispro 0 unit 07/19/25 17:00 07/20/25 07:51 Insulin Lispro (Admelog) 1 Unit/0.01 Ml Unit SC 08/18/25 16:59 Not Given AC MATT Protocol Labetalol HCl 10 mg 07/19/25 11:46 Labetalol Inj 5 Mg/Ml Vial 20 Ml IVP 08/18/25 11:45 Q6H PRN SBP>220, DBP>110 Memantine 5 mg 07/19/25 21:00 07/20/25 09:29 Memantine Hcl 5 Mg Tablet PO 08/18/25 20:59 5 mg BID MATT Administration Ondansetron HCl 4 mg 07/19/25 11:46 Ondansetron Inj 2 Mg/Ml Inj 2 Ml IVP 08/18/25 11:45 Q6H PRN NAUSEA OR VOMITING Protocol
--- NOTE | 2025-07-20 11:00 | PC.SS ---
GLAZE SPRAYER conducted bedside contact with the patient conduct initial assessment and to discuss discharge planning.? At bedside with patient was , Tracee Flood .? Due to patient?s aphasia, information obtained from the patient?s sister.? Patient resides with Tracee basilio.? Patient utilizes a walker to assist with ambulation.? Patient does not utilize home oxygen.? Patient requires assistance with completion of ADL?s.? Patient?s surrogate medical decision maker is Tracee basilio.? Patient?s PCP is Gurwinder Shelton.? Patient?s learning and development specialist is Dr. Paz.? Patient utilizes [facility] for medication services.? Discharge plan is for the patient to return home. ?If home health is recommended no preferred agency identified.? Family will provide transportation on behalf of the patient. ?No further discharge needs identified by the patient.? No further intervention required at this time, health and social care teacher will be available to address any further concerns.? Next of Kin: Tracee Quirozmo D/C Plan: Home
--- NOTE | 2025-07-20 11:13 | PC.NURSE ---
Notified Dr. Grant, patient's sister is waiting to talk to doctors regarding exams. Will be discharged after.
[2025-07-20 12:00] VITALS: BP 126/64; PULSE 54; PULSE 58; RESP 19; TEMP 36.3; O2SAT 96
--- NOTE | 2025-07-20 12:54 | ESDS_ITS ---
<Statement entered by Tiara Alcantar MD - 07/23/25 15:14> I reviewed above note and agree with findings and plans. I have also personally examined the patient with medicine team and went over assessment and plan with medical team including record label internship and resident physician. <Statement entered by Bubba Tee MD - 07/20/25 16:57> Patient was examined and case was reviewed with team including attending physician. Note reviewed, I agree with most of its contents and agree with the patient's care as documented by Dr. Godfrey Case discussed with my attending Dr. Katharine Tee MD PGY-2 Disclaimer: Despite multiple revisions, due to the dictation software being used, the document bellow may not be free of grammatical errors including phonetic/typographic errors. However, this does not deter from our commitment to providing health care in the patient's best interest in mind. Planned Discharge Date 07/20/25 DS: Providers Provider Date of admission: 07/19/25 11:45 Primary care physician: Gurwinder Nicole Admitting Provider: Tiara Alcantar MD Attending Provider on Admission: Tiara Alcantar MD Consults: 07/19/25 08:45 Consult to Neurology / Tele-Neurology Routine Comment: Consulting Provider: [facility] 07/19/25 11:46 Consult to Neurology / Tele-Neurology Routine Comment: Consulting Provider: Fernando Eason Referral Physical Therapy Routine Comment: Physician Instructions: Referral Speech Therapy Routine Comment: Attending Provider on DC: Tiara Alcantar MD Discharging Provider: Belinda Godfrey DO Anticipated date of discharge: 07/20/25 DS: Diagnosis Problem List Completed Was Problem List Reviewed/Reconciled?: Yes Hospital Course Hospital Course Hospital course: 75-year-old female with a history of CVA (2019), TIA (2023), dementia, HTN, DM2, HLD, and prior DVT (off anticoagulation for 3 months), presented with acute aphasia and right arm weakness while at a cardiology appointment. Initial evaluation included CT head and CTA head/neck, both negative for acute findings. NIHSS 0, MRI brain showed no acute infarct but chronic multi-infarct dementia. Labs notable for UA suggestive of UTI. Patient started on IV ceftriaxone. Patient was not taking Eliquis despite prior prescriptions?plan to restart Eliquis at discharge for secondary stroke prevention. Started on aspirin 81 mg and atorvastatin 80 mg. Permissive hypertension allowed, no TPA given. Neurology consulted. Passed swallow evaluation. Telemetry monitoring continued due to sinus bradycardia but patient asymptomatic. Patient is medically and physically stable for discharge. Diagnosis: #Acute aphasia and transient right-sided weakness (unknown etiology) #History of cerebrovascular accident #Transient ischemic attack #Chronic multi-infarct dementia #Urinary tract infection (UTI) #Type 2 diabetes mellitus #Hypertension #Hyperlipidemia #History of deep vein thrombosis #Sinus bradycardia (asymptomatic) #Dementia Discharge Plan: Follow up with primary care physician within 1 week of discharge. Follow-up with guest relations associate within 2 weeks of discharge. You have been prescribed aspirin 81 mg once a day and Eliquis 5 mg twice a day for stroke prophylaxis. Please take these medications as prescribed or as per cardiology recommendations. Should your symptoms recur or worsen patient was instructed to return to the ER. Case discussed with my senior resident Dr. Rudy Tee and my attending Dr. Alcantar. Belinda Godfrey DO PGY 1 Status at Discharge Overall status at discharge: patient is back to baseline Time Spent with Patient Time attestation: Total time spent providing and/or coordinating discharge services: Time spent: Greater than 30 minutes Exam Vital Signs Temp Pulse Resp BP Pulse Ox O2 Del Method 97.4 F 58 L 19 126/64 96 Room Air 07/20/25 12:00 07/20/25 12:07/20/25 12:00 07/20/25 12:00 07/20/25 12:07/20/25 12:00 Narrative Exam Physical Exam General: Alert and oriented x2, no acute distress. HEENT: Normocephalic, atraumatic, mucous membranes moist. Heart: Regular rate and rhythm, no murmurs. Lungs: Clear to auscultation with no wheezing or crackles. Symmetric with good expansion. Abdomen: Soft, nondistended, nontender. No guarding or rebound tenderness. Neurologic: Yes oriented to person, yes oriented to place, no gross neurological deficit, and patient able to move all 4 extremities. Extremities: No edema. Skin: No rash or ecchymoses. Discharge Plan Plan Patient Disposition: HOME (Self Care) Care Plan Goals: Follow up with primary care physician within 1 week of discharge Follow-up with guest relations associate within 2 weeks of discharge You have been prescribed aspirin 81 mg once a day and Eliquis 5 mg twice a day for stroke prophylaxis. Please take these medications as prescribed or as per cardiology recommendations. Should your symptoms recur or worsen patient was instructed to return to the ER. Prescriptions/Referrals Prescriptions/Med Rec: New aspirin 81 mg tablet,delayed release (DR/EC) 81 mg PO QDAY Qty: 30 0RF Eliquis 5 mg tablet 5 mg PO BID Qty: 60 0RF amoxicillin-pot clavulanate 875-125 mg tablet 1 tab PO BID 6 Days Qty: 12 0RF Continued Kerendia 10 mg Tablet 10 mg PO QDAY atorvastatin 20 mg Tablet 20 mg PO QDAY 30 Days Qty: 0 0RF cholecalciferol (vitamin D3) [D3 DOTS] 50 mcg (2,000 unit) tablet 50 mcg PO QDAY [place] 25.2 gram powder in packet 25.2 g PO BID diphenoxylate-atropine 2.5-0.025 mg Tablet 1 tab PO QID PRN (Reason: Diarrhea) famotidine 20 mg Tablet 20 mg PO Q12H hydroxyzine HCl 25 mg Tablet 50 mg PO HS memantine 5 mg Tablet 5 mg PO BID folic acid 1 mg Tablet 1 mg PO QDAY Gemtesa 75 mg Tablet 75 mg PO QDAY benzonatate 200 mg capsule 200 mg PO TID losartan 25 mg tablet 25 mg PO QDAY magnesium oxide 400 mg (241.3 mg magnesium) tablet 400 mg PO QDAY multivitamin Tablet 1 tab PO QDAY Discontinued Eliquis 5 mg Tablet 5 mg PO BID aspirin 81 mg Tablet,Delayed Release (Dr/Ec) 81 mg PO QDAY Qty: 30 0RF No Action montelukast [Singulair] 10 mg Tablet 10 mg PO QPM albuterol sulfate 90 mcg/actuation HFA aerosol inhaler 2 inh INHALATION Q4HR PRN (Reason: sob) celecoxib [Celebrex] 200 mg capsule 200 mg PO BID (DME) diaper,brief,adult,disposable Misc See Rx Instructions .Route Qty: 120 0RF Rx Instructions: As directed Referrals: Gurwinder Shelton [Primary Care Provider] - Patient/Caregiver Discharge Instructions Print Language: Trinidadian Stand Alone Forms: Dorina Award Info., Patient Portal Info Letter Discharge Order Discharge Orders: Discharge (Routine); Ordered 08/26/25 Ordered By: Bubba Tee Quality Discharge Quality Measures none
--- NOTE | 2025-07-20 13:45 | PC.PT ---
PT eval only. Patient was xI with bed mobility, transfers, and ambulation with a FWW. Patient is safe to ambulate to the bathroom and in the halls with 1 staff and a FWW to monitor her O2 sats. RN made aware.
--- NOTE | 2025-07-20 14:56 | PC.SS ---
Rounding Note: Plan is to d/c patient home with home health today.
--- NOTE | 2025-07-20 22:06 | ESPR_ITS ---
Documentation for date of: 07/20/25 Subjective Subjective Interval history: 07/20/2025: Patient was seen and examined at bedside. No acute events took place overnight. Patient denies any pain. Denies chest pain, pressure, lightheadedness, SOB. BP 126/64, pulse 58, resp 19, temp 97.4, O2 saturation 96% on RA. WBC 5.8, hemoglobin 11.2, MCV 84, potassium 4.0, BUN 11, creatinine 1, glucose 94, magnesium 1.7. Ultrasound study revealed Normal left ventricular size and function. Approximate ejection fraction is 55- 60%. Grade I diastolic dysfunction. Previous bubble study 02/25/25 negative 75F with MHx of dysphasia and memory impairment after stroke in 2021, HTN, DM, HLD, dementia, asthma, COPD on home O2, FANNIE on CPAP, and hx of DVT had gone to her cardiology appointment in the morning, when she was noticed to be confused, unable to speak clearly, and weak in her right arm. Patient is extablished with Dr. Paz?s cardiology clinic. Patient had been recommended to start aspirin 81mg QD with Eliquis 5mg BID given her hx of strokes and DVT on 08/26/[address] Paz. However, sister stated that the patient had not been taking Eliquis despite repeated recommendations on multiple visits. On clinic visit on 07/08/2025, patient reported chest congestion, with respiratory secretions, and cough. She denies chest pain, pressure, SOB, N/V/D. ? ED Course: Vitals: BP 146/101, HR 62, RR 18, 98.3F, O2 sat 95% on room air. Labs: Hemoglobin 11.7, glucose 124, hemoglobin A1c 6.2, Troponin I < 0.002; UA positive for nitrite, leukocyte esterase, 3+ bacteria. CXR unremarkable. CT head was negative for acute hemorrhage, mass effect, or midline shift. CTA head and neck showed no significant arterial stenosis. No cerebral large vessel arterial occlusions or thromboses. EKG revealed sinus bradycardia. Patient was given aspirin 81mg. PMHx: dysphasia and memory impairment after stroke in 2021, HTN, DM, HLD, dementia, asthma, COPD on home O2, FANNIE on CPAP, and hx of DVT PSHx: cholecystectomy 2009 FHx: father had cirrhosis and of lung ca. Mother: DM, ca, strokes which paralyzed her left side. SHx: Denies tobacco use, does not drink alcohol, denies illicit drug use. Denies caffeine intake. Lives in [place] with sister and rebekah's . Exam Vital Signs Temp Pulse Resp BP Pulse Ox O2 Del Method 97.4 F 58 L 19 126/64 96 Room Air 07/20/25 12:00 07/20/25 12:00 07/20/25 12:00 07/20/25 12:00 07/20/25 12:07/20/25 12:00 Narrative Exam General: Alert and oriented x3, No apparent distress. Skin: Intact, Warm, no rashes. HEENT: Normocephalic, Atraumatic. Normal neck range of motion, Supple. Trachea midline. Respiratory: Lungs are clear to auscultation, Breath sounds are equal bilaterally with equal chest expansion. Cardiovascular: RRR, normal S1, S2, No murmurs. Distal pulses 2+ Abdomen: Abdomen soft, non-distended, without erythema, or lesions. Normotensive bowel sounds x4. Percussion tympanic. Palpation nontender in all four quadrants. No organomagely. No guarding or rebound present. Musculoskeletal/Extremities: No erythema, swelling, tenderness of any joints. No edema of BLE. DP pulses +2/3 b/l. Full active ROM of all four extremities. Neurologic: NEURO: Oriented x3, cranial nerves II to XII grossly intact. Muscle strength 5/5 on UE and LE b/l, Moves extremities x4. Sensation intact to gross touch along C6-T1 and L2-S1 dermatomes. No focal neurologic deficits noted Psych: Thoughts linear and responses appropriate. Objective Labs 07/20/25 08:09 07/20/25 08:09 Labs: Laboratory Results - last 24 hr 07/20/25 08:09 WBC 5.8 RBC 4.32 Hgb 11.2 L Hct 36.1 MCV 84 MCH 25.9 MCHC 31.0 RDW Std Deviation 52.2 H Plt Count 278 Neut % (Auto) 56 Lymph % (Auto) 28 [place] % (Auto) 10 Eos % (Auto) 5 Baso % (Auto) 1 Neut # (Auto) 3.3 Lymph # (Auto) 1.6 [place] # (Auto) 0.6 Eos # (Auto) 0.3 Baso # (Auto) 0.1 Immature Gran # (Auto) 0.01 H Absolute Nucleated RBC 0.00 Immature Gran % 0 Nucleated RBC % 0 Sodium 142 Potassium 4.0 D Chloride 105 Carbon Dioxide 27.2 Anion Gap 10 BUN 11 Creatinine 1.0 Estim Creat Clear Calc 44.6 L eGFR 59 L BUN/Creatinine Ratio 11 L Glucose 94 Calculated Osmolality 282 Calcium 9.8 Corrected Calcium 10.0 Phosphorus 3.8 Magnesium 1.7 Total Bilirubin 0.8 AST 16 ALT 8 L Alkaline Phosphatase 81 Total Protein 6.3 Albumin 3.7 Globulin 2.6 Albumin/Globulin Ratio 1.4 Triglycerides 112 Cholesterol 159 LDL Cholesterol, Calc 77 HDL Cholesterol 60 Cholesterol/HDL Ratio 2.7 L TSH 2.69 Quality Measures Quality Measures none Advance care planning discussed with:: patient Assessment & Plan Plan 75F with MHx of dysphasia and memory impairment after stroke in 2021, HTN, DM, HLD, dementia, asthma, COPD on home O2, FANNIE on CPAP, and hx of DVT had gone to her cardiology appointment in the morning, when she was noticed to be confused, unable to speak clearly, and weak in her right arm admitted on 07/19 for worsening confusion and right sided weakness. #Acute Dysphasia #Transient right sided weakness #h/o CVA in 2019. TIA in 2023. Patient was on Xarelto and switched to Eliquis, but has not been taking it for 3mo, unfortunately, despite documented repeated recommendations by her shipping support clerk Dr. Paz. She already had a baseline of cognitive impairment with inability to perform ADL and dysphasia, but was noted to be worsening in those domains and increasingly confused prior to presentation. Initial BP 146/101, glc 124, HgbA1c 6.2, TSH 2.4 EKG: Sinus bradycardia UDS negative CT head w/o: Negative for acute hemorrhage, mass effect or midline shift. CTA head/neck w/: No significant neck arterial stenoses. No cerebral large vessel arterial occlusions or thromboses. MRI/MRA w/o: Negative for acute hemorrhage mass effect or midline shift. No acute infarct. Prominent chronic multi-infarct dementia pattern. No critical carotid stenoses. Meds given: Aspirin 81 mg, Atorvastatin 80 mg ABCD2 score (risk of stroke after suspected TIA): 6 (high risk). ASCVD: pending lipid labs to calculate. TTE: Indication: Stroke work up Normal left ventricular size and function. Approximate ejection fraction is 55- 60%. Grade I diastolic dysfunction. Normal Right ventricular size and function. Normal RVSP 20 mm hg Mild TR,MR and mild MAC. Mild dilatd LA Mild to moderate aortic valve sclerosis without stenosis. No pericardial effusion. Previous bubble study 02/25/25 negative Nuclear Stress Test (11/24/2024): Normal myocardial perfusion study without evidence of inducible ischemia. There is an area of decreased activity in the inferior Left ventricle at rest and post-stress with normal segmental contractility, highly suggestive of diaphragmatic attenuation. EF 70%. TID and wall motion are normal. Plans according to internal medicine team: - Admit to telemetry floor. - Continue aspirin 81 mg. - Continue atorvastatin 80 mg. - Neuro Checks (Q4). - Neurology consulted - appreciate recs. - Head of Bed 30 Degrees. - Allow for permissive HTN, NO TPA given, Systolic <220 or Diastolic <120 or suspected end organ failure. - Nicardipine or Clevidipine PRN if need be, give if SBP >220 or DBP >120. Avoid beta blockers - can exacerbate bradycardia. - Maintain euglycemia and normal temperature. #History of DVT Known history of DVT. Formerly on Xarelto but was switched to Eliquis on 08/26/2024. Patient has not been taking Eliquis for 3mo apparently, unfortunately despite verbalized and documented recommendations by shipping support clerk Dr. Paz. Plan: - Heparin DVT prophylaxis while inpatient. - Patient should be discharged on Eliquis 5mg BID in addition to ASA (81mg as above for recurrent stroke prophylaxis) #Urinary tract infection UA: positive for nitrites, leukocyte esterase and bacteria. - Start IV Ceftriaxone 1 gram. #Diabetes Mellitus Type II, non-insulin dependent HgbA1c 6.2. -Sliding Scale Lispro. #Sinus bradycardia, asymptomatic -Avoid beta-blocking or rate slowing agents. #Dementia, likely vascular type h/o CVA in 2020 with slow decline in memory since then. Home medication of memantine by her neurologist #COPD on home O2 #FANNIE on CPAP Thank you for cardiology consultation. We appreciate the opportunity to participate in this patient's care. Will continue to follow-up on this patient This case was discussed with my attending physician, Dr. Paz, curriculum coach. Dread Machuca, DO PGY I Attending Provider Attestation/Addendum I have personally seen and examined the patient separately on the above date of service and discussed the plan of care with the resident. I reviewed the resident Dr. [place] consultation progress note and agree with the resident findings and plan in the note above and have also edited the documentation to reflect my findings and plan. Marlon Paz M.D. Interventional Cardiology
== END 2025-07-20 12:53 | disposition home or self-care (01) | DRG 92 ==
LOC: SERX 11:39 → SERHOLD 11:57 → S2NX 17:26
PROVIDERS: Nurse Practitioner Family; Student in an Organized Health Care Education/Training Program; Admitting Provider Internal Medicine; Emergency Provider Emergency Medicine; PCP Physician Assistant; Visit Provider Internal Medicine
DX: R47.01 Aphasia (principal); I69.351 Hemiplegia and hemiparesis following cerebral infarction affecting right dominant side; N39.0 Urinary tract infection, site not specified; R29.810 Facial weakness; E78.5 Hyperlipidemia, unspecified; E11.9 Type 2 diabetes mellitus without complications; R00.1 Bradycardia, unspecified; J44.9 Chronic obstructive pulmonary disease, unspecified; R53.1 Weakness; G47.33 Obstructive sleep apnea (adult) (pediatric); I48.91 Unspecified atrial fibrillation; F01.50 Vascular dementia, unspecified severity, without behavioral disturbance, psychotic disturbance, mood disturbance, and anxiety; I10 Essential (primary) hypertension; Z86.718 Personal history of other venous thrombosis and embolism; Z79.84 Long term (current) use of oral hypoglycemic drugs; Z99.81 Dependence on supplemental oxygen; Z79.01 Long term (current) use of anticoagulants; Z79.1 Long term (current) use of non-steroidal anti-inflammatories (NSAID); Z79.82 Long term (current) use of aspirin; Z79.899 Other long term (current) drug therapy; Z90.49 Acquired absence of other specified parts of digestive tract
CPT/HCPCS: 36415; 70450; 70496; 70498; 70544; 71045; 80053; 80061; 80307; 81001; 83036; 83735; 84100; 84436; 84443; 84484; 85025; 85610; 85730; 87077; 87086; 87186; 92610; 93005; 93306; 96361; 96365; 96372; 97162; 99285; A4649; J0696; J1644; J7030; Q9967; A9270